=== PATIENT | male | born 1970 | race Caucasian/White ===

== ENCOUNTER → 2016-08-08 | Outpatient (CLI) | payer MEDICARE ==
--- NOTE | 2016-08-08 08:54 | US ---
EXAMINATION TYPE: US carotid duplex BILAT DATE OF EXAM: 08/08/2016 7:14 AM COMPARISON: NONE CLINICAL HISTORY: H81.8X9 DISORDER OF VESTIBULAR FUNCTION , UNSPECIFIED EAR. Pt states dizziness and fainting EXAM MEASUREMENTS: RIGHT: Peak Systolic Velocity (PSV) cm/sec ----- Right CCA: 111.7 ----- Right ICA: 76.5 ----- Right ECA: 109.5 ICA/CCA ratio: 0.7 RIGHT: End Diastole cm/sec ----- Right CCA: 34.7 ----- Right ICA: 20.4 ----- Right ECA: 20.2 LEFT: Peak Systolic Velocity (PSV) cm/sec ----- Left CCA: 97.4 ----- Left ICA: 73.8 ----- Left ECA: 96.6 ICA/CCA ratio: 0.8 LEFT: End Diastole cm/sec ----- Left CCA: 32.5 ----- Left ICA: 31.1 ----- Left ECA: 23.5 VERTEBRALS (direction of flow): Right Vertebral: Antegrade Left Vertebral: Antegrade No significant stenosis seen bilaterally IMPRESSION: I DO NOT SEE EVIDENCE OF A HEMODYNAMICALLY SIGNIFICANT STENOSIS IN EITHER CAROTID SYSTEM. Criteria for Assigning % of Stenosis / Diameter reduction (Estimation based on the indirect measurements of the internal carotid artery velocities (ICA PSV). 1. Normal (no stenosis)=ICA PSV < 125 cm/s: ratio < 2.0: ICA EDV<40 cm/s. 2. Less than 50% stenosis=ICA PSV < 125 cm/s: ratio < 2.0: ICA EDV<40 cm/s. 3. 50 to 69% stenosis=ICA PSV of 125 to 230 cm/s: ration 2.0 ? 4.0: ICA EDV 40-100 cm/s. 4. Greater than 70% stenosis to near occlusion= ICA PSV > 230 cm/s: ratio > 4.0: ICA EDV > 100 cm/s. 5. Near occlusion= ICA PSV velocities may be low or undetectable: variable ratio and ICA EDV. 6. Total occlusion=unable to detect flow.
--- NOTE | 2016-08-09 09:54 | ECHOF ---
Referral Reason:H81.8X9 syncopal vertigo MEASUREMENTS -------- HEIGHT: 182.9 cm WEIGHT: 83.9 kg BP: IVSd: 1.0 cm (0.6 - 1.1) LVIDd: 4.5 cm (3.9 - 5.3) LVPWd: 1.2 cm (0.6 - 1.1) IVSs: 1.5 cm LVIDs: 2.6 cm LVPWs: 1.2 cm Ao Diam: 3.0 cm (2.0 - 3.7) AV Cusp: 2.2 cm (1.5 - 2.6) LA Diam: 3.2 cm (2.7 - 3.8) MV EXCURSION: 17.202 mm (> 18.000) MV EF SLOPE: 118 mm/s (70 - 150) EPSS: 0.3 cm MV E Moustapha: 0.72 m/s MV DecT: 187 ms MV A Moustapha: 0.66 m/s MV E/A Ratio: 1.09 RAP: 5.00 mmHg RVSP: 16.53 mmHg FINDINGS -------- Sinus rhythm. This was a technically good study. There is borderline concentric left ventricular hypertrophy. Overall left ventricular systolic function is normal with, an EF between 55 - 60 %. The right ventricle is normal in size and function. The left atrium is normal in size. The right atrium is normal in size. Aortic valve is trileaflet and is mildly thickened. The mitral valve leaflets are mildly thickened. There is trace mitral regurgitation. Trace tricuspid regurgitation present. The right ventricular systolic pressure, as measured by Doppler, is 16.53mmHg. Pulmonic valve appears structurally normal. The aortic root size is normal. The pericardium is normal. CONCLUSIONS -------- 1. Sinus rhythm. 2. There is trace mitral regurgitation. 3. Trace tricuspid regurgitation present. 4. The right ventricular systolic pressure, as measured by Doppler, is 16.53mmHg. 5. Pulmonic valve appears structurally normal. 6. The aortic root size is normal. 7. The pericardium is normal. 8. This was a technically good study. 9. There is borderline concentric left ventricular hypertrophy. 10. Overall left ventricular systolic function is normal with, an EF between 55 - 60 %. 11. The right ventricle is normal in size and function. 12. The left atrium is normal in size. 13. The right atrium is normal in size. 14. Aortic valve is trileaflet and is mildly thickened. 15. The mitral valve leaflets are mildly thickened. DRIVEMATIC MACHINE OPERATOR: Aura Andrew RDCS
== END | disposition home or self-care (01) ==
LOC: RADUSWWP 06:54
PROVIDERS: ATTEND Family Medicine
DX: H81.8X9 Other disorders of vestibular function, unspecified ear (principal); I08.1 Rheumatic disorders of both mitral and tricuspid valves; I51.7 Cardiomegaly
CPT/HCPCS: 93306; 93880

== ENCOUNTER → 2016-10-04 | Outpatient (CLI) | payer MEDICARE ==
[2016-10-04 14:45] LABS: CH 33.2; CHCM 33.9; HCT 43.9 % (39.0-53.0); HDW 2.42; HGB 14.8 gm/dL (13.0-17.5); MCH 33.1 pg (25.0-35.0); MCHC 33.7 g/dL (31.0-37.0); MCV 98.4 fL (80.0-100.0); Mean Platelet Volume 7.8; RBC 4.47 m/uL (4.30-5.90); RDW 13.1 % (11.5-15.5); WBC 4.9 k/uL (3.8-10.6)
--- NOTE | 2016-10-04 16:46 | CT ---
EXAMINATION TYPE: CT abdomen pelvis w con DATE OF EXAM: 10/04/2016 COMPARISON: 10/10/2014 INDICATION: LLQ pain with nausea for 3 days DLP: 903.3 mGycm, Automated exposure control for dose reduction was used. CONTRAST: 100 mL of Omnipaque 300. Study performed with Oral Contrast TECHNIQUE: Axial images were obtained from above the diaphragm to the pubic rami in the axial plane a t 5 mm thick sections. Reconstructed images are reviewed on the computer in the coronal plane. FINDINGS: Limited CT sections are obtained the lung bases. The lung bases are clear. CT ABDOMEN: Liver: Normal Spleen: Normal Pancreas: Normal Adrenal glands: The adrenal glands are normal. Gallbladder: Normal Kidneys: No masses are evident. No hydronephrosis is present. No cysts are present. Delayed images were obtained through the kidneys, which remain unremarkable. Aorta: Normal Inferior vena cava: Normal. CT PELVIS: Loops of bowel within the abdomen and pelvis are normal. Surgical clips are in the right lower qu adrant. The appendix is not identified. Couple of diverticuli within the sigmoid colon. No changes to suggest acute diverticulitis is evident. Contrast extends to the distal descending colon. Appendix: Not identified Urinary bladder: Normal. Genitourinary structures: Prostate is prominent Osseous structures: No suspicious lytic or sclerotic lesions. IMPRESSIONS: 1. Scattered diverticulosis without acute diverticulitis sigmoid colon.
== END | disposition home or self-care (01) ==
LOC: RADCTMAIN 14:24
PROVIDERS: ATTEND Surgery
DX: K57.90 Diverticulosis of intestine, part unspecified, without perforation or abscess without bleeding (principal)
CPT/HCPCS: 85027; 74177; 36415; Q9967

== ENCOUNTER 2017-06-27 12:27 | Observation (INO) | payer MEDICARE ==
[2017-06-27] MEDS ORDERED: MORPHINE SULFATE 4 MG/ML SYRINGE IV STA (12:52)
[2017-06-27] MEDS ORDERED: LORazepam 2 MG/ML INJ IV STA (12:52)
[2017-06-27] MEDS ORDERED: ONDANSETRON 4 MG/2 ML VIAL IVP STA (12:52)
--- NOTE | 2017-06-27 12:55 | ED ---
General Adult HPI - General Chief complaint: Chest Pain Stated complaint: chest pain Time Seen by Provider: 06/27/17 12:43 Source: patient, EMS, RN notes reviewed, old records reviewed Mode of arrival: EMS Limitations: no limitations - History of Present Illness Initial comments: 46-year-old male presents with substernal chest pain. Patient has history of coronary artery disease status post stenting. He had a cardiac arrest approximately 4 years ago. He had chest pain preceding this event. Patient recently is going through some marital issues and was kicked out of his house yesterday. Chest pain is central substernal chest pain. Does radiate to his left jaw and left arm. The patient had several episodes of vomiting. This pain began approximately one hour prior to arrival. Patient denies abdominal pain. Denies fever or chills. He has been taking his medication as prescribed. - Related Data Home Medications Medication Instructions Recorded Confirmed DULoxetine HCL [Cymbalta] 60 mg PO DAILY 06/27/17 06/27/17 Prochlorperazine [Compazine] 10 mg PO DAILY PRN 06/27/17 06/27/17 rOPINIRole HCL [Requip] 0.25 mg PO TID 06/27/17 06/27/17 Previous Rx's Medication Instructions Recorded Aspirin 81 mg PO DAILY #30 chew 10/01/13 Atorvastatin [Lipitor] 80 mg PO HS #30 tab 10/01/13 Spironolactone [Aldactone] 25 mg PO DAILY #30 tab 10/01/13 Allergies Allergy/AdvReac Type Severity Reaction Status Date / Time hydroxyzine HCl Allergy Unknown Verified 06/27/17 13:16 [From Vistaril] hydroxyzine pamoate Allergy Unknown Verified 06/27/17 13:16 [From Vistaril] meperidine HCl [From Demerol] Allergy Unknown Verified 06/27/17 13:16 Review of Systems ROS Statement: Those systems with pertinent positive or pertinent negative responses have been documented in the HPI. ROS Other: All systems not noted in ROS Statement are negative. Past Medical History Past Medical History: Coronary Artery Disease (CAD), Chest Pain / Angina, Deep Vein Thrombosis (DVT), Hyperlipidemia, Hypertension, Myocardial Infarction (MO) , Sleep Apnea/CPAP/BIPAP Additional Past Medical History / Comment(s): 10-01-13 CArdiac arrest positive mi, was coded for 1 hour placed on vent for 2 days. cad , kidney stones , essential tremor, migraines used to take topamx stopped few yers ago because they went away,sleep apnea but lost weight and did'nt need cpap, LEFT MAXWELL INJURY 1 MONTH AGO RELATED TO SOFT BALL, X-RAY INDICATED CONTUSION, PER CARI Last Myocardial Infarction Date:: 2006 History of Any Multi-Drug Resistant Organisms: None Reported Past Surgical History: Heart Catheterization, Heart Catheterization With Stent Additional Past Surgical History / Comment(s): has 2 cardiac stents, laser sx for kidney stone Past Anesthesia/Blood Transfusion Reactions: No Reported Reaction Date of Last Stent Placement:: NONE Past Psychological History: Anxiety, Depression Smoking Status: Former smoker Past Alcohol Use History: Occasional Past Drug Use History: Marijuana - Past Family History Father Family Medical History: Congestive Heart Failure (CHF), Hyperlipidemia, Hypertension, Myocardial Infarction (MO) Additional Family Medical History / Comment(s): cabg(quad), then post cabd had cath with stents, kidney stones, diverticulits/ sx with temporary colostomy Mother Family Medical History: Cancer Additional Family Medical History / Comment(s): migraines,skin cancer General Exam Limitations: no limitations General appearance: alert, in distress Head exam: Present: atraumatic, normocephalic Eye exam: Present: normal appearance, PERRL, EOMI Neck exam: Present: normal inspection Respiratory exam: Present: normal lung sounds bilaterally. Absent: respiratory distress, wheezes Cardiovascular Exam: Present: regular rate, normal rhythm GI/Abdominal exam: Present: soft. Absent: distended, tenderness Extremities exam: Present: normal inspection, normal capillary refill, other ( Distal pulses are symmetric). Absent: pedal edema Neurological exam: Present: alert, oriented X3. Absent: motor sensory deficit Psychiatric exam: Present: depressed, anxious Skin exam: Present: warm, dry, intact. Absent: cyanosis, diaphoretic Course Vital Signs 06/27/17 06/27/17 06/27/17 12:34 13:53 14:30 Temperature 99.4 F Pulse Rate 113 H 95 99 Respiratory 22 20 15 Rate Blood Pressure 170/92 124/86 138/86 O2 Sat by Pulse 99 100 100 Oximetry EKG Findings - EKG Comments: EKG Findings:: EKG shows normal sinus rhythm, atrial enlargement, ventricular rate 98, NC interval 134, castration 94, QTC 451, no signs of ST segment elevation Medical Decision Making - Medical Decision Making 46-year-old male presenting with chest pain, patient's pain began just prior to arrival. Described as substernal with radiation of the jaw and left arm. Patient has significant cardiac history including cardiac arrest and MO requiring stenting. Initial impression is that his pain is more likely consistent with anxiety. EKG negative for acute ischemic changes. Workup including chest x-ray is negative for any acute intrathoracic process. CBC within normal limits, troponin and d-dimer are negative. Electrolytes negative. Patient is given morphine and Ativan and on reevaluation he is feeling better. Patient's symptoms likely related to anxiety although given the time course and onset just prior to arrival as well as his past medical history he will be placed in observation for serial cardiac enzymes and cardiology consultation. - Lab Data Result diagrams: 06/27/17 12:40 06/27/17 12:40 Lab Results 06/27/17 06/27/17 06/27/17 Range/Units 12:40 12:40 12:40 WBC 7.3 (3.8-10.6) k/uL RBC 4.96 (4.30-5.90) m/uL Hgb 15.9 (13.0-17.5) gm/dL Hct 47.5 (39.0-53.0) % MCV 95.7 (80.0-100.0) fL MCH 32.0 (25.0-35.0) pg MCHC 33.4 (31.0-37.0) g/dL RDW 12.7 (11.5-15.5) % Plt Count 213 (150-450) k/uL Neutrophils % 79 % Lymphocytes % 16 % Monocytes % 4 % Eosinophils % 0 % Basophils % 1 % Neutrophils # 5.7 (1.3-7.7) k/uL Lymphocytes # 1.1 (1.0-4.8) k/uL Monocytes # 0.3 (0-1.0) k/uL Eosinophils # 0.0 (0-0.7) k/uL Basophils # 0.1 (0-0.2) k/uL PT (9.0-12.0) sec INR (<1.2) APTT (22.0-30.0) sec D-Dimer (<0.60) mg/L FEU Sodium 143 (137-145) mmol/L Potassium 4.9 (3.5-5.1) mmol/L Chloride 103 (98-107) mmol/L Carbon Dioxide 27 (22-30) mmol/L Anion Gap 13 mmol/L BUN 18 (9-20) mg/dL Creatinine 1.01 (0.66-1.25) mg/dL Est GFR (MDRD) Af Amer >60 (>60 ml/min/1.73 sqM) Est GFR (MDRD) Non-Af >60 (>60 ml/min/1.73 sqM) Glucose 93 (74-99) mg/dL Calcium 9.6 (8.4-10.2) mg/dL Magnesium 2.1 (1.6-2.3) mg/dL Total Bilirubin 0.9 (0.2-1.3) mg/dL AST 41 (17-59) U/L ALT 43 (21-72) U/L Alkaline Phosphatase 71 (38-126) U/L Total Creatine Kinase 105 (55-170) U/L CK-MB (CK-2) 1.1 (0.0-2.4) ng/mL CK-MB (CK-2) Rel Index 1.0 Troponin I <0.012 (0.000-0.034) ng/mL NT-Pro-B Natriuret Pep pg/mL Total Protein 7.6 (6.3-8.2) g/dL Albumin 4.5 (3.5-5.0) g/dL Lipase 98 (23-300) U/L 06/27/17 06/27/17 Range/Units 12:40 12:40 WBC (3.8-10.6) k/uL RBC (4.30-5.90) m/uL Hgb (13.0-17.5) gm/dL Hct (39.0-53.0) % MCV (80.0-100.0) fL MCH (25.0-35.0) pg MCHC (31.0-37.0) g/dL RDW (11.5-15.5) % Plt Count (150-450) k/uL Neutrophils % % Lymphocytes % % Monocytes % % Eosinophils % % Basophils % % Neutrophils # (1.3-7.7) k/uL Lymphocytes # (1.0-4.8) k/uL Monocytes # (0-1.0) k/uL Eosinophils # (0-0.7) k/uL Basophils # (0-0.2) k/uL PT 9.9 (9.0-12.0) sec INR 1.0 (<1.2) APTT 22.2 (22.0-30.0) sec D-Dimer 0.40 (<0.60) mg/L FEU Sodium (137-145) mmol/L Potassium (3.5-5.1) mmol/L Chloride (98-107) mmol/L Carbon Dioxide (22-30) mmol/L Anion Gap mmol/L BUN (9-20) mg/dL Creatinine (0.66-1.25) mg/dL Est GFR (MDRD) Af Amer (>60 ml/min/1.73 sqM) Est GFR (MDRD) Non-Af (>60 ml/min/1.73 sqM) Glucose (74-99) mg/dL Calcium (8.4-10.2) mg/dL Magnesium (1.6-2.3) mg/dL Total Bilirubin (0.2-1.3) mg/dL AST (17-59) U/L ALT (21-72) U/L Alkaline Phosphatase (38-126) U/L Total Creatine Kinase (55-170) U/L CK-MB (CK-2) (0.0-2.4) ng/mL CK-MB (CK-2) Rel Index Troponin I (0.000-0.034) ng/mL NT-Pro-B Natriuret Pep 85 pg/mL Total Protein (6.3-8.2) g/dL Albumin (3.5-5.0) g/dL Lipase (23-300) U/L Critical Care Time Critical Care Time: Yes Total Critical Care Time: 35 Disposition Clinical Impression: Chest pain, Anxiety Disposition: ADMITTED IP TO THIS [facility] Condition: Stable Referrals: Zaid Malloyr MD [Primary Care Provider] - 1-2 days Decision to Admit Reason: Admit from EC Decision Date: 06/27/17 Decision Time: 14:54
[2017-06-27 13:46] LABS: Basophils # (A) 0.1 k/uL (0-0.2); Basophils % (A) 1 %; Eosinophils % (A) 0 %; HCT 47.5 % (39.0-53.0); HGB 15.9 gm/dL (13.0-17.5); Lymphocytes # (A) 1.1 k/uL (1.0-4.8); Lymphocytes % (A) 16 %; MCHC 33.4 g/dL (31.0-37.0); MCV 95.7 fL (80.0-100.0); Mean Platelet Volume 7.6; Monocytes # (A) 0.3 k/uL (0-1.0); Monocytes % (A) 4 %; Neutrophils # (A) 5.7 k/uL (1.3-7.7); Neutrophils % (A) 79 %; Platelet Count 213 k/uL (150-450); RBC 4.96 m/uL (4.30-5.90); RDW 12.7 % (11.5-15.5); WBC 7.3 k/uL (3.8-10.6)
--- NOTE | 2017-06-27 13:46 | XR ---
EXAMINATION TYPE: XR chest 2V DATE OF EXAM: 06/27/2017 COMPARISON: Chest x-ray November 11, 2014. HISTORY: History of heart attack and stents with chest pain. TECHNIQUE: Frontal and lateral views of the chest are obtained. FINDINGS: There is no focal air space opacity, pleural effusion, or pneumothorax seen. The cardiac silhouette size is within normal limits. Spine is straightened on lateral view. IMPRESSION: No acute cardiopulmonary process. No significant change from prior.
[2017-06-27 13:54] LABS: Anion Gap 13 mmol/L; Blood Urea Nitrogen 18 mg/dL (9-20); Carbon Dioxide 27 mmol/L (22-30); Chloride 103 mmol/L (98-107); Glucose 93 mg/dL (74-99); Potassium 4.9 mmol/L (3.5-5.1); Sodium 143 mmol/L (137-145)
[2017-06-27 13:55] LABS: ALT 43 U/L (21-72); AST 41 U/L (17-59); Albumin 4.5 g/dL (3.5-5.0); Alkaline Phosphatase 71 U/L (38-126); Calcium 9.6 mg/dL (8.4-10.2); Lipase 98 U/L (23-300); Magnesium 2.1 mg/dL (1.6-2.3); Total Bilirubin 0.9 mg/dL (0.2-1.3); Total Protein 7.6 g/dL (6.3-8.2)
[2017-06-27 14:05] LABS: D-Dimer 0.4 mg/L FEU (<0.60)
[2017-06-27 14:11] LABS: Creatine Kinase 105 U/L (55-170)
[2017-06-27 14:25] LABS: Creatine Kinase MB 1.1 ng/mL (0.0-2.4); Troponin I <0.012 ng/mL (0.000-0.034)
[2017-06-27 14:28] LABS: Partial Thromboplastin Time 22.2 sec (22.0-30.0); Prothrombin Time 9.9 sec (9.0-12.0)
[2017-06-27] MEDS ORDERED: ONDANSETRON 4 MG/2 ML VIAL IVP PRN (14:54)
[2017-06-27] MEDS ORDERED: ACETAMINOPHEN TAB 325 MG TAB PO PRN (14:54)
[2017-06-27] MEDS ORDERED: NALOXONE 0.4 MG/ML 1 ML VIAL IV PRN (14:54)
[2017-06-27] MEDS: SODIUM CHLORIDE 0.9% 1,000 ML IV SCH (16:19)
--- NOTE | 2017-06-27 17:42 | P.HPIM ---
History of Present Illness 46-year-old the male with history of carotid disease in the past came in with complaints of chest pain pressure-like sensation the left side of the chest similar to the pain when he when he had myocardial infarction but the less intense started today morning constant pain it was 8 x 10 in severity now 6 x 10 in severity patient was also complaining of syncopal episode prior to this patient is a retching. Patient has multitude of symptoms. Patient mostly paced to be severely depressed had some marital issues, has to leave his house. Patient denied any suicidal ideations patient chest pain is nonexertional nonpleuritic not associated with food. Patient is already on duloxetine. Patient denied any cough runny nose patient has resting tremor which she says has been present since his childhood although patient has known history of alcoholism drinks more than 4 beers a day Review of Systems REVIEW OF SYSTEMS: CONSTITUTIONAL: No fever, no malaise, no fatigue. HEENT: No recent visual problems or hearing problems. Denied any sore throat. CARDIOVASCULAR: No orthopnea, PND, no palpitations, no syncope. PULMONARY: No shortness of breath, no cough, no hemoptysis. GASTROINTESTINAL: No diarrhea, no nausea, no vomiting, no abdominal pain. Normoactive bowel sounds. NEUROLOGICAL: No headaches, no weakness, no numbness. HEMATOLOGICAL: Denies any bleeding or petechiae. GENITOURINARY: Denies any burning micturition, frequency, or urgency. MUSCULOSKELETAL/RHEUMATOLOGICAL: Denies any joint pain, swelling, or any muscle pain. ENDOCRINE: Denies any polyuria or polydipsia. The rest of the 14-point review of systems is negative. Past Medical History Past Medical History: Coronary Artery Disease (CAD), Chest Pain / Angina, Deep Vein Thrombosis (DVT), GERD/Reflux, Hyperlipidemia, Hypertension, Myocardial Infarction (DC), Rheumatoid Arthritis (RA), Sleep Apnea/CPAP/BIPAP Additional Past Medical History / Comment(s): 10-01-13 Cardiac arrest positive mi, was coded / placed on vent for 2 days.(per discharge summary had pul edema from chf, cardiomyopathy) cad , kidney stones , essential tremor, migraines used to take topamx stopped few yers ago because they went away,sleep apnea but lost weight and did'nt need cpap,past LEFT MAXWELL CONTUSIONfrom softball injury. "has blockage in one of his carotid arteries no sure which side" Last Myocardial Infarction Date:: 2013 History of Any Multi-Drug Resistant Organisms: None Reported Past Surgical History: Heart Catheterization, Heart Catheterization With Stent Additional Past Surgical History / Comment(s): has 2 cardiac stents, laser sx for kidney stone Past Anesthesia/Blood Transfusion Reactions: No Reported Reaction Date of Last Stent Placement:: NONE Smoking Status: Former smoker - Past Family History Father Family Medical History: Congestive Heart Failure (CHF), Hyperlipidemia, Hypertension, Myocardial Infarction (DC) Additional Family Medical History / Comment(s): cabg(quad), then post cabd had cath with stents, kidney stones, diverticulits/ sx with temporary colostomy Mother Family Medical History: Cancer Additional Family Medical History / Comment(s): migraines,skin cancer Medications and Allergies Home Medications Medication Instructions Recorded Confirmed Type Aspirin 81 mg PO DAILY #30 chew 10/01/13 06/27/17 Rx Atorvastatin [Lipitor] 80 mg PO HS #30 tab 10/01/13 06/27/17 Rx Spironolactone [Aldactone] 25 mg PO DAILY #30 tab 10/01/13 06/27/17 Rx DULoxetine HCL [Cymbalta] 60 mg PO DAILY 06/27/17 06/27/17 History Prochlorperazine [Compazine] 10 mg PO DAILY PRN 06/27/17 06/27/17 History rOPINIRole HCL [Requip] 0.25 mg PO TID 06/27/17 06/27/17 History Allergies Allergy/AdvReac Type Severity Reaction Status Date / Time hydroxyzine HCl Allergy Unknown Verified 06/27/17 13:16 [From Vistaril] hydroxyzine pamoate Allergy Unknown Verified 06/27/17 13:16 [From Vistaril] meperidine HCl [From Demerol] Allergy Unknown Verified 06/27/17 13:16 Physical Exam Vitals: Vital Signs Temp Pulse Pulse Resp BP BP Pulse Ox 06/27/17 15:45 98.0 F 93 18 152/85 98 06/27/17 15:17 98.9 F 93 18 127/73 99 06/27/17 14:30 99 15 138/86 100 06/27/17 13:53 95 20 124/86 100 06/27/17 12:34 99.4 F 113 H 22 170/92 99 Intake and Output 06/27/17 06/27/17 06/27/17 06:59 14:59 22:59 Other: Voiding Method Toilet Weight 83.915 kg 85 kg Patient Weight 06/28/17 06:59 Weight 85 kg PHYSICAL EXAMINATION: GENERAL: The patient is alert and oriented x3, not in any acute distress. Well developed, well nourished. Patient does have resting tremor appears to be severely depressed HEENT: Pupils are round and equally reacting to light. EOMI. No scleral icterus. No conjunctival pallor. Normocephalic, atraumatic. No pharyngeal erythema. No thyromegaly. CARDIOVASCULAR: S1 and S2 present. No murmurs, rubs, or gallops. PULMONARY: Chest is clear to auscultation, no wheezing or crackles. ABDOMEN: Soft, nontender, nondistended, normoactive bowel sounds. No palpable organomegaly. MUSCULOSKELETAL: No joint swelling or deformity. EXTREMITIES: No cyanosis, clubbing, or pedal edema. NEUROLOGICAL: Gross neurological examination did not reveal any focal deficits. SKIN: No rashes. Results CBC & Chem 7: 06/27/17 12:40 06/27/17 12:40 Assessment and Plan Plan: -Chest pain: We'll rule out acute coronary syndromes appear to be noncardiac most related to anxiety and depression. Cardiology will evaluate the patient. -Syncopal episode: Telemetry monitoring and echocardiogram once again probably still related to his severe depression. -History of coronary artery disease -alcoholism well and counseling regarding excess alcohol use was provided patient will be on Ativan [place] protocol thiamine multivitamin supplementation -DVT in the past -Gastroesophageal reflux disease -Hypertension For above-mentioned chronic medical problems patient will be started on appropriate home medications.
[2017-06-27 19:36] LABS: Creatine Kinase 74 U/L (55-170)
[2017-06-27 19:50] LABS: Creatine Kinase MB 0.8 ng/mL (0.0-2.4); Troponin I <0.012 ng/mL (0.000-0.034)
[2017-06-27] MEDS: LORazepam 2 MG/ML INJ IV PRN (19:52)
[2017-06-27] MEDS: HYDROmorphone 0.5 MG/0.5 ML SYRINGE IVP PRN (19:56)
[2017-06-27] MEDS: ATORVASTATIN 80 MG TAB PO SCH (19:57)
[2017-06-27] MEDS: FAMOTIDINE 20 MG TAB PO SCH (19:57)
[2017-06-28 01:08] LABS: Creatine Kinase 80 U/L (55-170)
[2017-06-28 01:21] LABS: Creatine Kinase MB 0.8 ng/mL (0.0-2.4); Troponin I <0.012 ng/mL (0.000-0.034)
[2017-06-28] MEDS: HYDROmorphone 0.5 MG/0.5 ML SYRINGE IVP PRN (07:53)
[2017-06-28 10:11] VITALS: BMI 26.1
[2017-06-28] MEDS: LORazepam 2 MG/ML INJ IV PRN ×2 (10:43→21:17)
--- NOTE | 2017-06-28 11:11 | CT ---
EXAMINATION TYPE: CT brain wo con DATE OF EXAM: 06/28/2017 COMPARISON: NONE INDICATION: Patient complains of head pressure. DLP: 1118 mGycm, Automated exposure control for dose reduction was used. CONTRAST: None CT of the brain is performed utilizing 3 mm thick sections through the posterior fossa and 3 mm thick sections through the remaining calvarium. Study is performed within 24 hours of arrival to the hosp [facility]. No abnormal hyperdensity is present to suggest an acute intracranial hemorrhage. No mass lesion is evident. No acute infarcts are evident. Ventricles and sulci are appropriate for the patient age. Paranasal sinuses and mastoid air cells within the [id number] are clear. IMPRESSIONS: 1. Normal CT Brain
--- NOTE | 2017-06-28 12:18 | CT ---
EXAMINATION TYPE: CT brain wo con DATE OF EXAM: 06/28/2017 COMPARISON: 06/28/2017 earlier in the day INDICATION: MARX, Lt sided weak DLP: 1277 mGycm, Automated exposure control for dose reduction was used. CONTRAST: None CT of the brain is performed utilizing 3 mm thick sections through the posterior fossa and 3 mm thick sections through the remaining calvarium. Study is performed within 24 hours of arrival to the hosp ital. No abnormal hyperdensity is present to suggest an acute intracranial hemorrhage. No mass lesion is evident. No acute infarcts are evident. Ventricles and sulci are appropriate for the patient age. Paranasal sinuses and mastoid air cells within the [id number] are clear. IMPRESSIONS: 1. Normal CT Brain 2. Exam is stable from previous exam. MRI may be more sensitive for acute stroke.
[2017-06-28] MEDS ORDERED: FLUMAZENIL 0.1 MG/ML 5 ML VIAL IVP ONE (12:27)
--- NOTE | 2017-06-28 12:55 | CT ---
EXAMINATION TYPE: CODE STROKE: CTA head neck DATE OF EXAM: 06/28/2017 HISTORY: MAXR, Lt sided weakness COMPARISON: NONE CT DLP: 462 mGycm. Automated Exposure Control for Dose Reduction was Utilized. TECHNIQUE: CTA scan of the neck is performed with IV Contrast, patient injected with 65 mL of Omnipa que 350, axial images are obtained, coronal and sagittal reformatted images are reviewed. Three-D rec onstructed images are created on an independent workstation and reviewed. FINDINGS: Carotid/Vascular Structures: Anterior and posterior circulations within the brain are patent, there i s no filling defect to suggest dissection or embolus. Common carotid, internal and external carotid a rteries are patent. No significant carotid stenosis is evident. The innominate artery, left and right subclavian arteries are patent. Vertebral arteries are codominant and patent. Other: Polyp seen tonsils are somewhat prominent, recommend direct visualization. Salivary gland show symmetric appearance. Dural sinuses are patent. Degenerative disc changes are present in the visuali zed spine. Lung apices within normal limits. No evident adenopathy. IMPRESSION: Patent neck and cerebral vasculature. Additional findings above.
--- NOTE | 2017-06-28 12:59 | CONS ---
CONSULTATION Mr. Burden is a 46-year-old gentleman who is seen for cardiac evaluation. The patient currently is lethargic minimally answering any questions. Patient just has received 1 mg of Ativan. A stroke team was called. The patient's history was obtained from the sister as well as from the chart. He came to the emergency room yesterday with a complaint of substernal pain. The patient gives a history that he had chest discomfort with some radiation to the left arm. He had a history of fall or syncope yesterday. According to sister, he has been having some syncopal spells and he had several episodes of vomiting yesterday. This morning, patient was complaining of some blurred vision and headache. He received Ativan and subsequently he went for the CT scan of the brain which was normal. After that the patient is lethargic. The patient is not having any significant chest pain. He does have a prior history of myocardial infarction with stent to the proximal LAD. He has not been followed by Dr. Banuelos regularly. I am not sure whether patient is following any shot man at [facility]. The patient is under a lot of stress recently and because of the marital problems patient also drinks about 4 to 5 beers per day. HOME MEDICATIONS: Home medications include Cymbalta, Compazine, Requip, aspirin, Lipitor and Aldactone 25 mg daily. PAST MEDICAL HISTORY: Past medical history includes a prior myocardial infarction, history of DVT, hypertension, history of sleep apnea, CPAP and BiPAP machine, history of migraine headache and he has history of essential tremors, prior history of a stent to the LAD. SMOKING HISTORY: Patient is a former smoker. SOCIAL HISTORY: Patient has a history of depression and anxiety and has been having marital problems recently. PHYSICAL EXAMINATION: Physical examination at present reveals a 46-year-old gentleman who does respond to the questions minimally. In the emergency room, patient had a temperature of 99.4, blood pressure was 170/92 mmHg. The patient is afebrile this morning. Blood pressure is 130/81 mmHg. Head, ENT examination is negative. Neck is supple. There is no increase in jugular venous pressure. Both the carotid pulses are felt. There is no bruit. Chest is symmetrical. HEART: The PMI is not felt. First and second heart sounds are normal. There is no evidence of any murmur. Lungs are clinically clear to auscultation and percussion. Abdomen is soft. EXTREMITIES: There is no evidence of any leg edema. EKG shows normal sinus rhythm without any acute ischemic changes. Cardiac enzymes are negative. FINAL IMPRESSION: 1. This patient is admitted with chest pain, rule out unstable angina syndrome. EKGs and cardiac enzymes are normal. The patient does have a prior history of myocardial infarction and stent to the proximal LAD. 2. Patient is having significant problem of anxiety, depression and headache. The patient is being worked up neurologically at present. The patient is stable. Cardiac harrison at present, patient is not having any symptoms of acute coronary syndrome. Echo and Doppler study will be done. After the patient's neurological status is stabilized, he can be evaluated further with a stress test. FERMIN / LEXYN: [id number] /
--- NOTE | 2017-06-28 13:08 | P.PN ---
Subjective 46-year-old admitted for chest pain patient evidently had a fall yesterday and a CAT scan of the head was done which was negative patient later had an episode of weakness on the left side of the body I was not present at that time "stroke team evaluated the patient and interventional neurologist evaluated on the telemetry recommended a CT angiography head and neck by the time I saw the patient he has generalized weakness but no focal weakness all the weakness completely resolved there is no focal sensory deficits either apparently there was no facial droop. Patient is severely depressed. He still complaining of chest pain. Objective - Vital Signs Vital signs: Vital Signs Temp 97.4 F L 06/28/17 11:43 Pulse 93 06/28/17 11:48 Resp 18 06/28/17 11:43 BP 140/86 06/28/17 12:25 Pulse Ox 98 06/28/17 11:43 Intake & Output 06/27/17 06/28/17 06/28/17 18:59 06:59 18:59 Weight 85 kg 85 kg Other: Voiding Method Toilet Toilet Toilet # Voids 1 - Exam PHYSICAL EXAMINATION: GENERAL: The patient is alert and oriented x3, not in any acute distress. Well developed, well nourished. HEENT: Pupils are round and equally reacting to light. EOMI. No scleral icterus. No conjunctival pallor. Normocephalic, atraumatic. No pharyngeal erythema. No thyromegaly. CARDIOVASCULAR: S1 and S2 present. No murmurs, rubs, or gallops. PULMONARY: Chest is clear to auscultation, no wheezing or crackles. ABDOMEN: Soft, nontender, nondistended, normoactive bowel sounds. No palpable organomegaly. MUSCULOSKELETAL: No joint swelling or deformity. EXTREMITIES: No cyanosis, clubbing, or pedal edema. NEUROLOGICAL: Gross neurological examination did not reveal any focal deficits. Patient has generalized weakness SKIN: No rashes. - Labs CBC & Chem 7: 06/27/17 12:40 06/27/17 12:40 Assessment and Plan Plan: -Chest pain: We'll rule out acute coronary syndromes appear to be noncardiac most related to anxiety and depression. Cardiology will evaluate the patient. -Syncopal episode: Telemetry monitoring and echocardiogram once again probably still related to his severe depression. -An episode of weakness in the left side: Patient will be evaluated for TIA neurology was consulted carotid Doppler will be obtained by my suspicion is low for actual TIA the other differentials include severe depression, attention seeking behavior or psychosomatic. -History of coronary artery disease -alcoholism well and counseling regarding excess alcohol use was provided patient will be on Ativan CIWA protocol thiamine multivitamin supplementation -DVT in the past -Gastroesophageal reflux disease -Hypertension For above-mentioned chronic medical problems patient will be started on appropriate home medications.
--- NOTE | 2017-06-28 15:34 | P.CN ---
Psychiatric Consult - . Consult date: 06/28/17 Consult:: 06/28/17 15:15 Identification: Patient is a 46-year-old male who presented to the emergency room with complaints of chest pain after he fell at home. Patient wasn't of unit and then was transferred to the inpatient unit secondary to developing a temporary weakness in his extremities. Reason for Consult: Depression History of Present Illness: Patient's chart was reviewed, I spoke with the attending physician prior to seeing the patient and the patient was interviewed in his room alone and his parents were asked to leave to complete the interview. Patient states that he had chest pain and came to the emergency room , he states that they've ruled out that he had a heart attack. Patient states that he has been taking Cymbalta 60 mg in the morning for the last several years prescribed by his primary care physician for depression. He states that he's tried Paxil, Zoloft, Wellbutrin and quit those because of side effects or not working. He describes his depression as major mood swings where he is happy 1 minute and angry quite quickly. He states that this is increased recently because he's been under increasing stress. States that his depression currently is one of anger and feeling hopeless and with anxiety attacks. States he is not sleeping well. Patient reports he wasn't eating well prior to coming to the hospital. Patient denies any current suicidal ideation and states that he has never had any suicidal thoughts nor any suicide attempts in the past. Patient states that the stress he has been under is due to the separation from his for the last 2 days. Patient states that they because of infidelity on his part, she asked for the separation because he told her about the infidelity and he states he is not interested in divorce and states that she is not either and that they are discussing possible marital counseling. Patient states that he also uses alcohol and that this was also in another point of contention between he and his . Patient states the last year he's been drinking 5-6 beers a day and hasn't had any since the day prior to admission. He stopped because his asked him to stop. 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 The patient states that he is disabled secondary to his heart disease and the limitations he has about being able to do sustained physical labor. He was unable to tell me what he spends his days doing but stated that he was born at home and began using marijuana daily due to boredom. Patient does not endorse any psychotic symptoms nor does he endorse any manic symptoms and his anxiety symptoms seem to be related to his depression and becoming angry and irritable. Patient states he's been taking the Cymbalta and that it was beneficial and worked better than other medications. Past Psychiatric History: Patient has no inpatient psychiatric history and has never been seen for counseling or psychiatric evaluation. He is currently on Cymbalta 60 mg in the morning and has tried Paxil, Zoloft and Wellbutrin. Past Medical/Surgical History: Patient has coronary artery disease and is status post 2 stent placements, myocardial infarction, DVT, hypertension, sleep apnea for which the patient states he lost weight and no longer uses a CPAP or BiPAP machine but has never been reassessed after the weight loss to see if his sleep apnea persists. He reports he also has migraine headaches and essential tremor. He denies any surgeries. Family History: Patient states that his mother is being treated for depression and his sister is being dysphoric treated for depression. He denies any alcohol or substance abuse history in the family and denies any completed suicides. Social History: Patient was born and raised in [place] and both of his parents are alive. He has one sibling a sister. He completed high school as no service and began working after high school. His most recent job was as a maintenance controller which he did for 6 years but he has not worked since September 2013. Patient is currently on disability and he states this is secondary to his heart disease in his inability to do sustained physical work. Patient is and has a 12-year-old daughter and was recently from his 2 days ago due to infidelity on his part as well as due to his alcohol use. Patient is currently living with his sister and his and daughter remain in the family home. Patient denies any abuse history Substance Use History: Patient states he began drinking at the age of 20 and drank heavily in the past and for the last year is been drinking 5-6 beers a day. Patient denies any symptoms of withdrawal and has never had any withdrawal seizures. He is never received any inpatient or outpatient alcohol rehab treatment. Patient states he began using marijuana at the age of 18 stopped for years and restarted recently and uses it occasionally secondary to boredom. He denies any other drug history. Patient stopped using tobacco products. Legal History: Patient denies any legal history. Mental status: Appearance/Attitude: Patient is lying in a hospital bed and kept his eyes closed during the interview, he was cooperative but appeared disinterested in the interview Behavior: Patient did not display any psychomotor agitation or retardation. Speech/Language: Patient's speech was spontaneous, needed encouragement to elaborate, he spoke in a soft slow voice and was coherent Thought Process: Patient was goal-directed, there is no evidence of loose associations or flight of ideas Thought Content: Patient denied any auditory or visual hallucinations and no delusions or paranoid ideation were elicited. Patient stated that he had recently been under a lot of stress secondary to he and his 2 days prior to his admission. He states that the separation was secondary to his infidelity. He states that his was also asking him to stop drinking. Patient states that he has been having mood swings which she describes as being happy and then quick to anger. He states he has been feeling depressed and angry as well as hopeless. He describes anxiety attacks that he has very becomes increasingly anxious and irritable. States that he has not been sleeping well at home and his appetite is been decreased at home. Suicidal/Homicidal Ideation: Patient denies any current suicidal or homicidal ideation. Sensorium/Cognition: Patient is alert and oriented to person, place, time and his recent and remote memory were grossly intact. Mood/Affect: Patient states he is feeling depressed and his affect is blunted. Insight/Judgment: Patient's insight and judgment are fair. Assessment: patient presented to the emergency room with complaints of chest pain and having fallen at home, he states he's been under increasing stress recently and this appears to be secondary to his separation from his 2 days ago. He states that the separation was secondary to his infidelity and telling his as well as his requesting that he stopped drinking. Patient has been treated for a number of years for depression and most recently has been on Cymbalta 60 mg for the last several years she states is been the most effective medication. Patient has been using alcohol 5-6 beers a day for the last year. Patient also has been using marijuana occasionally due to boredom. Patient has been on disability since 2013 secondary to his heart disease. Patient has never received any counseling for his depression nor has he gone to any outpatient or inpatient rehab for his alcohol use. Patient appeared disinterested during the interview keeping his eyes closed throughout the whole interview. Patient stated that he could stop drinking and that that would not be a problem for him. Patient reports that both he and his are interested in marriage counseling. Diagnosis: Other specified depressive disorder, alcohol use disorder, mild Plan: Patient reports depressive symptoms and that his Cymbalta 60 mg is not working, and I discussed with the patient that medication would be ineffective if he was using alcohol concurrently with it. I also discussed with the patient that his use of alcohol disruptive sleep pattern and also increase his anxiety and depressive symptoms. Patient does not exhibit any psychotic symptoms or manic symptoms and denies any current suicidal or homicidal ideation and does not require inpatient psychiatric treatment. Before changing his Cymbalta 60 mg as he states that it was effective in the past I suggested that he stopped drinking and reassess his response to Cymbalta off of alcohol. I also suggested to the patient that he should be seen for outpatient counseling and should the Cymbalta not be effective obtain psychiatric evaluation for medication adjustment. Patient also is not using his CPAP machine and states this is because of weight loss and that he thinks he no longer has sleep apnea. Patient should be reassessed for sleep apnea after his weight loss as I discussed with him that this could certainly contribute to his sleep difficulties, lack of energy as well as his headaches and could also affect his mood. I encouraged the patient to remain sober from both alcohol and marijuana. I also encouraged the patient to seek marital counseling with his . Patient was given a referral list for outpatient counseling as well as for in an outpatient rehab for alcohol use yesterday by the EPS nurse. Patient states that he does have those referrals. Patient was encouraged to contact these referrals and set up outpatient counseling for himself as well as to consider rehab services for his alcohol use. Patient stated that he thinks he can stop drinking without assistance. I will sign off the case if there are any further concerns please do not hesitate to contact me. 06/28/17 15:28 06/28/17 15:33
[2017-06-28] MEDS: SODIUM CHLORIDE 0.9% 1,000 ML IV SCH (18:39)
[2017-06-28] MEDS: HEPARIN SODIUM,PORCINE 5,000 UNIT/ML 1 ML VIAL SQ SCH (18:39)
[2017-06-28] MEDS: FAMOTIDINE 20 MG TAB PO SCH ×2 (19:28→20:21)
[2017-06-28] MEDS: HYDROcodone/APAP 5-325MG 1 EACH TAB PO PRN (19:28)
[2017-06-28] MEDS: ASPIRIN 81 MG PO SCH (19:29)
[2017-06-28] MEDS: SPIRONOLACTONE 25 MG TAB PO SCH (19:29)
[2017-06-28] MEDS: DULoxetine HCL 60 MG CAPSULE.DR PO SCH (19:29)
[2017-06-28] MEDS: ATORVASTATIN 80 MG TAB PO SCH (20:21)
--- NOTE | 2017-06-28 21:08 | CONS ---
CONSULTATION DATE OF CONSULTATION: 06/28/2017. CHIEF COMPLAINT: Weakness and numbness. HISTORY OF PRESENT ILLNESS: The patient is a 46-year-old male, who was being evaluated by the neurology service per the request of Dr. Durant for weakness and numbness. The patient initially presented to [facility] Emergency Room with complaints of chest pain. He was also complaining of a headache. A CT scan of the brain was done in the emergency room which was normal. The patient was admitted for further workup and management. Soon after his arrival to the medical floor, he developed a sudden onset of generalized weakness and numbness. A code stroke was called and a repeat CT scan of the brain was done, which again was normal. A CT angiogram of the brain and neck were also done, both of which showed no significant abnormalities. At the time of my evaluation, the patient is lying in his bed. He does admit that his weakness was generalized and nonlateralizing. He does report that his numbness was mainly on the left side. He also has severe depression and psychiatry has been consulted. I did review his laboratory workup which showed a normal CBC, INR, cardiac enzymes, and comprehensive metabolic profile. PAST MEDICAL HISTORY: Coronary artery disease, angina, history of deep venous thrombosis, gastroesophageal reflux disease, dyslipidemia, hypertension, history of myocardial infarction, rheumatoid arthritis, obstructive sleep apnea, history of previous cardiac arrest, depression, restless leg syndrome, essential tremor, history of nephrolithiasis, history of coronary artery stent placement. SOCIAL HISTORY: The patient is a former smoker. He denies any drug use. He admits to alcohol use. He does admit to marijuana use. FAMILY HISTORY: Positive for heart disease, hypertension, dyslipidemia, and cancer. HOME MEDICATIONS: Reviewed in the chart. ALLERGIES: VISTARIL, DEMEROL. REVIEW OF SYSTEMS: CONSTITUTIONAL: Negative. EYES: Negative. ENT: Negative. CARDIOVASCULAR: As mentioned above. RESPIRATORY: Negative. NEUROLOGICAL: As mentioned above. GASTROINTESTINAL: Positive for occasional heartburn. GENITOURINARY: Negative. PSYCHIATRIC: As mentioned above. MUSCULOSKELETAL: Positive for occasional joint pain. ENDOCRINE: Negative. DERMATOLOGICAL: Negative. PHYSICAL EXAM: Vital signs show a temperature of 97.4, pulse 93, respirations 18, blood pressure 130/81. GENERAL APPEARANCE: The patient is a well-developed male, who appears to be in no acute distress. HEENT: Normocephalic, atraumatic. No facial asymmetry is seen. NECK: Supple with no masses felt. CARDIOVASCULAR: Regular rate and rhythm. ABDOMEN: Nontender nondistended. EXTREMITIES: No edema or clubbing. NEUROLOGICAL EXAM: The patient is alert aware and oriented x3. Speech and language are normal. Strength examination showed significant give-way weakness in the left lower extremity more than the right lower extremity. No pronator drift is seen. 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 Sensory exam showed slightly diminished light touch sensation in the left upper extremity compared to the right. No sensory deficit is seen in the lower extremities. A postural tremor is present in the left upper extremity. Cranial nerve testing showed diminished light touch sensation on the left face compared to the right. No seizure-like activity is seen. IMPRESSION: 1. Atypical generalized weakness. 2. Left-sided sensory deficit. 3. Severe depression. RECOMMENDATIONS: The patient's neurological examination is not consistent as he has significant give-way weakness in his lower extremities. Although conversion disorder is within the differential diagnosis, I will order an MRI of the brain to rule out any ischemic event. I reviewed his CT scan of the brain along with his CT angiograms, all of which were normal. A psychiatry consultation is pending. He is still having some sensory deficit involving his left face and left upper extremity. The patient is currently on aspirin therapy. Continue neuro checks. I will continue to follow with you. Further recommendations to follow. Thank you for allowing me to participate in the care of your patient. If you have any questions, please feel free to contact me. FERMIN / LEXYN: [id number] /
[2017-06-29 07:09] LABS: Cholesterol 122 mg/dL (<200); HDL Cholesterol 58 mg/dL (40-60); LDL Cholesterol,Calculated 36 mg/dL (0-99); Triglycerides 140 mg/dL (<150)
[2017-06-29] MEDS: HYDROcodone/APAP 5-325MG 1 EACH TAB PO PRN ×2 (07:33→13:17)
--- NOTE | 2017-06-29 08:17 | MR ---
EXAMINATION TYPE: MR brain wo con DATE OF EXAM: 06/29/2017 COMPARISON: Prior MRI brain from yesterday. HISTORY: Left sided numbness and weakness on admission yesterday. Code stroke. TECHNIQUE: Multiplanar, multisequence imaging of the brain and brainstem is performed without IV cont rast. FINDINGS: Diffusion weighted images demonstrate no evidence of a recent infarct or other diffusion abnormality. There is no worrisome extra-axial fluid collection. The ventricular system and cisternal spaces are normal in size and appearance. The brain volume is age appropriate. There are scattered foci of T2 h yperintensity seen throughout the white matter bilaterally. Approximately 20-30 scattered lesions are seen. Multiple lesions measure between 3 to 6 mm in size. Midline structures demonstrate normal morphology. The craniocervical junction appears within normal limits. Normal vascular flow voids are present. The visualized sinuses are clear and the globes are i ntact. IMPRESSION: 1. No MRI evidence for a recent infarct. 2. Mild to moderate nonspecific white matter changes otherwise fairly unremarkable study.
[2017-06-29] MEDS: LORazepam 2 MG/ML INJ IV PRN (08:55)
[2017-06-29] MEDS: DULoxetine HCL 60 MG CAPSULE.DR PO SCH (09:11)
[2017-06-29] MEDS: FAMOTIDINE 20 MG TAB PO SCH (09:11)
[2017-06-29] MEDS: HEPARIN SODIUM,PORCINE 5,000 UNIT/ML 1 ML VIAL SQ SCH ×2 (09:11)
[2017-06-29] MEDS: ASPIRIN 81 MG PO SCH (09:11)
[2017-06-29] MEDS: SPIRONOLACTONE 25 MG TAB PO SCH (09:12)
[2017-06-29 11:17] VITALS: BP 138/85; PULSE 94; RESP 17; TEMP 96
--- NOTE | 2017-06-29 12:47 | P.PN ---
Subjective Progress Note Date: 06/29/17 This is a 46-year-old gentleman who follows with Dr. Adhikari in the office. Has a history of prior cardiac arrest with stent placement to the proximal LAD, DVT , hypertension, depression, sleep apnea and migraine headaches. Initially presented to the emergency department with complaints of substernal pain. He appeared to be also has a history of a fall and syncope on the day of admission. According to his sister he has been having some syncopal spells and episodes of vomiting following these spells. EKG did not show evidence of ischemia he's had no evidence of arrhythmia and troponins of been negative 3. He developed some neurological symptoms yesterday including generalized weakness and some numbness on the left side and code stroke was called. He subsequently underwent MRI of the brain that showed no evidence for recent infarct with mild to moderate nonspecific white matter changes, otherwise fairly unremarkable study. Upon examination this morning, patient is resting comfortably in bed with sister at bedside. His weakness and numbness seems to have improved. He's had no further complaints of syncope or chest discomfort. Objective - Vital Signs Vital signs: Vital Signs Temp 96.0 F L 06/29/17 11:13 Pulse 94 06/29/17 11:13 Resp 17 06/29/17 11:13 BP 138/85 06/29/17 11:13 Pulse Ox 93 L 06/29/17 11:13 Intake & Output 06/28/17 06/29/17 06/29/17 18:59 06:59 18:59 Intake Total 472 Balance 472 Weight 85 kg 83.9 kg Intake: Oral 472 Other: Voiding Method Toilet Toilet Toilet # Voids 1 1 - Exam PHYSICAL EXAMINATION: HEENT: Head is atraumatic, normocephalic. Pupils equal, round. Neck is supple. There is no elevated jugular venous pressure. HEART EXAMINATION: Heart sounds regular, S1 and S2 normal. No murmur or gallop heard. CHEST EXAMINATION: Lungs are clear to auscultation and precussion. No chest wall tenderness is noted on palpation or with deep breathing. ABDOMEN: Soft, nontender. Bowel sounds are heard. No organomegaly noted. EXTREMITIES: 2+ peripheral pulses with no evidence of peripheral edema and no calf tenderness noted. NEUROLOGIC patient is awake, alert and oriented x3. . - Labs CBC & Chem 7: 06/27/17 12:40 06/27/17 12:40 Assessment and Plan Assessment: #1 symptoms of chest pain with no EKG evidence of ischemia and normal cardiac enzymes #2 symptoms of recurrent syncope followed by nausea and vomiting #3 anxiety and depression #4 alcohol abuse #5 history of prior myocardial infarction with stent placement in the proximal LAD Plan: From cardiology's perspective, patient is stable for discharge home. We are recommending a follow-up with Dr. Baunelos and an event monitor as an outpatient. HEALTHCARE ADMINISTRATIVE ASSISTANT note has been reviewed, I agree with a documented findings and plan of care. Patient was seen and examined.
--- NOTE | 2017-06-29 12:57 | P.DS ---
Providers Date of admission: 06/27/17 14:54 Attending physician: René Martin Consults: 06/27/17 14:55 Consult Physician Urgent Consulting Provider: Judith Antoine Consult Reason/Comments: CP Do you want consulting provider notified?: Yes 06/27/17 17:34 Consult Physician Routine Consulting Provider: Rula Ellsworth Consult Reason/Comments: depression Do you want consulting provider notified?: Yes 06/28/17 12:10 Consult Physician Urgent Consulting Provider: Cassius Fajardo Consult Reason/Comments: stroke symptoms Do you want consulting provider notified?: Yes Primary care physician: Zaid Waddell [place] [facility] Course: 46-year-old admitted for chest pain patient evidently had a fall yesterday and a CAT scan of the head was done which was negative patient later had an episode of weakness on the left side of the body I was not present at that time "stroke team evaluated the patient and interventional neurologist evaluated on the telemetry recommended a CT angiography head and neck by the time I saw the patient he has generalized weakness but no focal weakness all the weakness completely resolved there is no focal sensory deficits either apparently there was no facial droop. Patient is severely depressed. He still complaining of chest pain. 06/29/2017 All the workup for stroke is negative including MRI of brain. Patient still complains of weakness which appears to be mostly psychosomatic in nature same thing was explained to the patient patient is willing to quit alcohol patient is having minimal withdrawls because of which will he will be prescribed Ativan on When necessary basis, patient denied any chest pain patient does have mild alcoholic gastritis for which patient will be given 14 days of Prilosec social work evaluated the patient and gave him enough information needed for alcohol cessation psychiatric is not recommending a dose increase for Cymbalta. PHYSICAL EXAMINATION: GENERAL: The patient is alert and oriented x3, not in any acute distress. Well developed, well nourished. HEENT: Pupils are round and equally reacting to light. EOMI. No scleral icterus. No conjunctival pallor. Normocephalic, atraumatic. No pharyngeal erythema. No thyromegaly. CARDIOVASCULAR: S1 and S2 present. No murmurs, rubs, or gallops. PULMONARY: Chest is clear to auscultation, no wheezing or crackles. ABDOMEN: Soft, nontender, nondistended, normoactive bowel sounds. No palpable organomegaly. MUSCULOSKELETAL: No joint swelling or deformity. EXTREMITIES: No cyanosis, clubbing, or pedal edema. NEUROLOGICAL: Gross neurological examination did not reveal any focal deficits. SKIN: No rashes. Assessment and Plan Plan: -Chest pain: We'll rule out acute coronary syndromes appear to be noncardiac most related to anxiety and depression. Cardiology evaluated the patient. -Syncopal episode: Telemetry monitoring and echocardiogram once again probably still related to his severe depression. -An episode of weakness in the left side: Workup for stroke is negative and patient's symptoms are psychosomatic -History of coronary artery disease -alcoholism well and counseling regarding excess alcohol use which will be discharged on thiamine multivitamin supplementation along with Ativan as needed basis. -DVT in the past -Gastroesophageal reflux disease -Hypertension Patient Condition at Discharge: Stable Plan - Discharge Summary Discharge Rx Participant: No New Discharge Prescriptions: New LORazepam [Ativan] 1 mg PO TID PRN #20 tab PRN Reason: Alcohol Withdrawal Omeprazole [PriLOSEC] 40 mg PO -[facility] #14 capsule. Thiamine [Vitamin B-1] 100 mg PO DAILY #30 tablet No Action Aspirin 81 mg PO DAILY #30 chew Atorvastatin [Lipitor] 80 mg PO HS #30 tab Spironolactone [Aldactone] 25 mg PO DAILY #30 tab rOPINIRole HCL [Requip] 0.25 mg PO TID Prochlorperazine [Compazine] 10 mg PO DAILY PRN PRN Reason: Nausea DULoxetine HCL [Cymbalta] 60 mg PO DAILY Discharge Medication List Aspirin 81 mg PO DAILY #30 chew 10/01/13 [Rx] Atorvastatin [Lipitor] 80 mg PO HS #30 tab 10/01/13 [Rx] Spironolactone [Aldactone] 25 mg PO DAILY #30 tab 10/01/13 [Rx] DULoxetine HCL [Cymbalta] 60 mg PO DAILY 06/27/17 [History] Prochlorperazine [Compazine] 10 mg PO DAILY PRN 06/27/17 [History] rOPINIRole HCL [Requip] 0.25 mg PO TID 06/27/17 [History] LORazepam [Ativan] 1 mg PO TID PRN #20 tab 06/29/17 [Rx] Omeprazole [PriLOSEC] 40 mg PO [id number] #14 capsule. 06/29/17 [Rx] Thiamine [Vitamin B-1] 100 mg PO DAILY #30 tablet 06/29/17 [Rx] Follow up Appointment(s)/Referral(s): Zaid Mallory MD [Primary Care Provider] - 3 Days Discharge Disposition: HOME SELF-CARE
--- NOTE | 2017-06-29 13:22 | P.PN ---
Subjective Progress Note Date: 06/29/17 Patient is a 46-year-old male who is being followed by the neurology service for weakness and numbness. Patient presented to [facility] originally with complaints of chest pain. He also complained of headache. Upon admission, computed tomography scan of the brain was done which was normal. Patient arrived up on the medical floor and had sudden onset generalized weakness and numbness. Code stroke was called repeat CT of the scan was done which again was normal. CT angiogram of the brain was done which showed no significant abnormality. Patient states he continues to have generalized weakness but is slightly improved.. No lateralizing weakness is noted. Patient does have history of severe depression and psychiatrist been consulted. At the time of my evaluation, patient is resting comfortably in bed and appears to be in no acute distress. Objective - Vital Signs Vital signs: Vital Signs Temp 96.0 F L 06/29/17 11:13 Pulse 94 06/29/17 11:13 Resp 17 06/29/17 11:13 BP 138/85 06/29/17 11:13 Pulse Ox 93 L 06/29/17 11:13 Intake & Output 06/28/17 06/29/17 06/29/17 18:59 06:59 18:59 Intake Total 472 600 Balance 472 600 Weight 85 kg 83.9 kg Intake: Oral 472 600 Other: Voiding Method Toilet Toilet Toilet # Voids 1 1 - Exam PHYSICAL EXAM: GENERAL APPEARANCE: Patient is a well-developed, male who appears to be in no acute distress. HEENT: Normocephalic, atraumatic, no facial asymmetry is seen. Neck is supple with no masses felt. CARDIOVASCULAR: Regular rate and rhythm. ABDOMEN: Nontender, nondistended. EXTREMITIES: Show no edema or clubbing. NEUROLOGICAL EXAM: Patient is awake, alert, and oriented 3. Speech and language are normal. Strength showed significant giveaway weakness in bilateral lower extremities. Sensory exam is slightly diminished on the left as compared to the right. No facial asymmetry is seen on cranial nerve testing. No tremors or seizure-like activity noted. - Labs CBC & Chem 7: 06/27/17 12:40 06/27/17 12:40 Assessment and Plan Plan: Impression: 1. Atypical generalized weakness 2. Left-sided sensory deficit 3. Severe depression Recommendations: Patient continues to experience generalized weakness. No lateralizing weakness is noted. As mentioned above, CT of the brain and CT angiogram were normal. Psychiatric consultation is noted. MRI of the brain was done to rule out any ischemic event an MRI was unremarkable. Patient is currently on aspirin therapy. No further neurological workup needed at this time. Patient is stable from a neurological standpoint. I will continue to follow with you on an as-needed basis. Feel free to call with any questions or concerns. I performed an examination of the patient and discussed the management with the AGRONOMY RESEARCH MANAGER. I have reviewed the AGRONOMY RESEARCH MANAGER notes and agree with the findings and plan of care.
[2017-06-29] MEDS ORDERED: HYDROmorphone 2 MG TAB PO PRN (15:05)
--- NOTE | 2017-07-05 11:00 | ECHOF ---
Referral Reason:chest pain MEASUREMENTS -------- HEIGHT: 66.0 cm WEIGHT: 200.0 kg BP: IVSd: 0.8 cm (0.6 - 1.1) LVIDd: 3.9 cm (3.9 - 5.3) LVPWd: 0.8 cm (0.6 - 1.1) IVSs: 1.4 cm LVIDs: 2.2 cm LVPWs: 1.7 cm IVSd: 3.2 cm (0.6 - 1.1) Ao Diam: 3.0 cm (2.0 - 3.7) AV Cusp: 1.7 cm (1.5 - 2.6) LA Diam: 2.7 cm (2.7 - 3.8) MV EXCURSION: 19.436 mm (> 18.000) MV EF SLOPE: 58 mm/s (70 - 150) EPSS: 0.4 cm MV E Moustapha: 0.65 m/s MV DecT: 135 ms MV A Moustapha: 0.70 m/s MV E/A Ratio: 0.92 RAP: 5.00 mmHg RVSP: 16.07 mmHg FINDINGS -------- Sinus rhythm. This was a technically good study. The left ventricular size is normal. Left ventricular wall thickness is normal. Overall left vent ricular systolic function is normal with, an EF between 55 - 60 %. The right ventricle is normal in size and function. The left atrium is normal in size. The right atrium is normal in size. The aortic valve is trileaflet, and appears structurally normal. No aortic stenosis or regurgitation. There is trace mitral regurgitation. Trace tricuspid regurgitation present. The right ventricular systolic pressure, as measured by Dopp ler, is 16.07mmHg. Pulmonic valve appears structurally normal. The aortic root size is normal. The pericardium is normal. CONCLUSIONS -------- 1. Sinus rhythm. 2. This was a technically good study. 3. The left ventricular size is normal. 4. Left ventricular wall thickness is normal. 5. Overall left ventricular systolic function is normal with, an EF between 55 - 60 %. 6. The right ventricle is normal in size and function. 7. The left atrium is normal in size. 8. The right atrium is normal in size. 9. The aortic valve is trileaflet, and appears structurally normal. No aortic stenosis or regurgitati on. 10. There is trace mitral regurgitation. 11. Trace tricuspid regurgitation present. 12. The right ventricular systolic pressure, as measured by Doppler, is 16.07mmHg. 13. Pulmonic valve appears structurally normal. 14. The aortic root size is normal. 15. The pericardium is normal. TRUCK DRIVER HEAVY: Aura Andrew RDCS
== END 2017-06-29 17:05 | disposition home or self-care (01) ==
LOC: EC 12:27 → 3OBS 14:54 → 6SEL 06-28 13:00
PROVIDERS: ADMIT Hospitalist; ATTEND Hospitalist
DX: R07.89 Other chest pain (principal); R55 Syncope and collapse; F45.9 Somatoform disorder, unspecified; F32.9 Major depressive disorder, single episode, unspecified; F41.9 Anxiety disorder, unspecified; K29.20 Alcoholic gastritis without bleeding; F10.20 Alcohol dependence, uncomplicated; Z86.74 Personal history of sudden cardiac arrest; I25.10 Atherosclerotic heart disease of native coronary artery without angina pectoris; Z95.5 Presence of coronary angioplasty implant and graft; K21.9 Gastro-esophageal reflux disease without esophagitis; I10 Essential (primary) hypertension; E78.5 Hyperlipidemia, unspecified; G47.33 Obstructive sleep apnea (adult) (pediatric); G25.0 Essential tremor; G43.909 Migraine, unspecified, not intractable, without status migrainosus; G25.81 Restless legs syndrome; F12.90 Cannabis use, unspecified, uncomplicated; I25.2 Old myocardial infarction; R29.818 Other symptoms and signs involving the nervous system; Z63.0 Problems in relationship with spouse or partner; Z79.82 Long term (current) use of aspirin; Z79.899 Other long term (current) drug therapy; Z88.5 Allergy status to narcotic agent; Z88.8 Allergy status to other drugs, medicaments and biological substances; Z87.891 Personal history of nicotine dependence; Z86.718 Personal history of other venous thrombosis and embolism; Z87.442 Personal history of urinary calculi; Z82.49 Family history of ischemic heart disease and other diseases of the circulatory system; Z80.8 Family history of malignant neoplasm of other organs or systems; Z82.0 Family history of epilepsy and other diseases of the nervous system; Z83.79 Family history of other diseases of the digestive system
CPT/HCPCS: 99291 ×2; 96374 ×2; 96375 ×5; 96376 ×3; 96372; 36415; 94760; 93005; 93306; 97162; 97165; 92523; 85379; 83880; 80061; 80053; 82550 ×2; 82553 ×2; 83690; 83735; 84484 ×2; 85025; 85610; 85730; 71046; 70496; 70450; 70498; 70551; G0378 ×3; J2060 ×3; J2270; J1644; Q9967; J2405; J1170 ×2

== ENCOUNTER 2017-08-02 07:57 | Day surgery (SDC) | payer MEDICARE ==
[2017-07-30 14:16] VITALS: BMI 24.4
[~2017-08-02 07:57] MED LIST: SODIUM CHLORIDE 0.9% 1,000 ML IV SCH
[2017-08-02 08:30] VITALS: BP 103/67; PULSE 80; RESP 18; TEMP 98
--- NOTE | 2017-08-02 19:04 | P.PCN ---
Preoperative Diagnosis: Twelve-lead ECG Sinus rhythm normal AK narrow QRS normal ST segments normal QT interval no epsilon waves no delta waves Tilt table test Tilt table test per protocol. Baseline blood pressure 111/67 mmHg Baseline heart rate 70 beats a minute. Patient was tilted upright at an angle of 70 per protocol there waschange his heart rate or blood pressure is laid supine at the end of the procedure Impression No evidence for neurocardiogenic syncope No evidence for dysautonomia Normal heart rate and blood pressure response to upright tilting Disposition: same day
== END 2017-08-02 09:35 | disposition home or self-care (01) ==
LOC: CATHEP 07:57
PROVIDERS: ATTEND Internal Medicine Clinical Cardiac Electrophysiology
DX: I25.10 Atherosclerotic heart disease of native coronary artery without angina pectoris (principal); E78.5 Hyperlipidemia, unspecified; I10 Essential (primary) hypertension; R55 Syncope and collapse; Z79.82 Long term (current) use of aspirin; Z79.899 Other long term (current) drug therapy; Z95.5 Presence of coronary angioplasty implant and graft; Z87.891 Personal history of nicotine dependence
CPT/HCPCS: 93005; 93660

== ENCOUNTER 2018-08-21 13:47 | Observation (INO) | payer MEDICARE ==
[2018-08-21] MEDS ORDERED: ASPIRIN 81 MG PO STA (14:04)
[2018-08-21] MEDS ORDERED: LORazepam 2 MG/ML INJ IV STA (14:04)
[2018-08-21] MEDS ORDERED: NITROGLYCERIN OINT 1 INCH/GM PACKET TOPICAL STA (14:04)
--- NOTE | 2018-08-21 14:06 | ED ---
General Adult HPI - General Chief complaint: Chest Pain Stated complaint: chest pain Time Seen by Provider: 08/21/18 13:50 Source: patient, RN notes reviewed Mode of arrival: ambulatory Limitations: no limitations - History of Present Illness Initial comments: This is a 47-year-old male who has a past medical history significant for coronary artery disease and stent placement. Patient also has high cholesterol. Patient states he has a very strong family history of heart disease. Patient states starting last night he started getting some left-sided shoulder and arm pain. As of today it spread into his chest more laterally than anterior. Patient states he was diaphoretic at times. Patient states the pain waxes and wanes. Patient denies any shortness of breath currently states the pain is slightly better than it has been. Patient denies any nausea. Patient denies abdominal pain patient denies nausea vomiting diarrhea. Patient denies any recent fever chills or cough per patient denies lightheadedness dizziness or near-syncopal episode. Patient denies headache patient denies numbness weakness. Patient states this pain is slightly different pain he had before when he had a heart attack. - Related Data Home Medications Medication Instructions Recorded Confirmed DULoxetine HCL [Cymbalta] 60 mg PO BID 06/27/17 08/21/18 Nitroglycerin Sl Tabs [Nitrostat] 0.4 mg SUBLINGUAL Q5M PRN 07/30/17 08/21/18 Atorvastatin [Lipitor] 80 mg PO DAILY 08/21/18 08/21/18 Unknown Otc For Nausea 1 tab PO Q6H PRN 08/21/18 08/21/18 Previous Rx's Medication Instructions Recorded Aspirin 81 mg PO DAILY #30 chew 10/01/13 Spironolactone [Aldactone] 25 mg PO DAILY #30 tab 10/01/13 Allergies Allergy/AdvReac Type Severity Reaction Status Date / Time hydroxyzine HCl Allergy Unknown Verified 08/21/18 14:17 [From Vistaril] hydroxyzine pamoate Allergy Unknown Verified 08/21/18 14:17 [From Vistaril] meperidine HCl [From Demerol] Allergy Unknown Verified 08/21/18 14:17 Review of Systems ROS Statement: Those systems with pertinent positive or pertinent negative responses have been documented in the HPI. ROS Other: All systems not noted in ROS Statement are negative. Past Medical History Past Medical History: Deep Vein Thrombosis (DVT), GERD/Reflux, Hyperlipidemia, Myocardial Infarction ([place]), Rheumatoid Arthritis ([place]), Sleep Apnea/CPAP/BIPAP Additional Past Medical History / Comment(s): See Dr Bull Chang&Any, 10-01-13 Cardiac arrest positive mi, was coded / placed on vent for 2 days, kidney stones , essential tremor, hx migraines, chronic "sour stomach", no cpap used since wt loss Last Myocardial Infarction Date:: 2013 History of Any Multi-Drug Resistant Organisms: None Reported Past Surgical History: Heart Catheterization, Heart Catheterization With Stent Additional Past Surgical History / Comment(s): 2 cardiac stents, laser sx for kidney stone Past Anesthesia/Blood Transfusion Reactions: No Reported Reaction Date of Last Stent Placement:: 09/23/13 Past Psychological History: Anxiety, Depression Smoking Status: Former smoker Past Alcohol Use History: Daily Past Drug Use History: Marijuana - Past Family History Father Family Medical History: Congestive Heart Failure (CHF), Hyperlipidemia, Hypertension, Myocardial Infarction ([place]) Additional Family Medical History / Comment(s): cabg(quad), then post cabd had cath with stents, kidney stones, diverticulits/ sx with temporary colostomy Mother Family Medical History: Cancer Additional Family Medical History / Comment(s): skin cancer General Exam - General Exam Comments Initial Comments: GENERAL: Patient is well-developed and well-nourished. Patient is nontoxic and well- hydrated and is in mild distress. ENT: Neck is soft and supple. No significant lymphadenopathy is noted. Oropharynx is clear. Moist mucous membranes. Neck has full range of motion without eliciting any pain. EYES: The sclera were anicteric and conjunctiva were pink and moist. Extraocular movements were intact and pupils were equal round and reactive to light. Eyelids were unremarkable. PULMONARY: Unlabored respirations. Good breath sounds bilaterally. No audible rales rhonchi or wheezing was noted. CARDIOVASCULAR: There is a regular rate and rhythm without any murmurs gallops or rubs. ABDOMEN: Soft and nontender with normal bowel sounds. No palpable organomegaly was noted. There is no palpable pulsatile mass. SKIN: Skin is clear with no lesions or rashes and otherwise unremarkable. NEUROLOGIC: Patient is alert and oriented x3. Cranial nerves II through XII are grossly intact. Motor and sensory are also intact. Normal speech, volume and content. Symmetrical smile. MUSCULOSKELETAL: Normal extremities with adequate strength and full range of motion. No lower extremity swelling or edema. No calf tenderness. LYMPHATICS: No significant lymphadenopathy is noted PSYCHIATRIC: Patient is anxious and states he does have history of anxiety. Limitations: no limitations Course Vital Signs 08/21/18 13:49 Temperature 98.7 F Pulse Rate 79 Respiratory 18 Rate Blood Pressure 143/99 O2 Sat by Pulse 99 Oximetry Medical Decision Making - Medical Decision Making EKG shows normal sinus rhythm at 86 bpm ND interval is on a 46 QRS is 94 QT interval 360 QTC is 440 per patient's EKG shows no ST segment elevation or depression or T wave abnormalities are noted. Chest x-ray shows no acute abnormality. I started the patient heparin because of unstable angina. I spoke with Dr. Martin he agreed to admit the patient admitted the patient I consult cardiology continue heparin and aspirin on the floor. - Lab Data Result diagrams: 08/21/18 14:10 08/21/18 14:10 Lab Results 08/21/18 08/21/18 08/21/18 Range/Units 14:10 14:10 14:10 WBC 6.3 (3.8-10.6) k/uL RBC 4.86 (4.30-5.90) m/uL Hgb 15.3 (13.0-17.5) gm/dL Hct 47.5 (39.0-53.0) % MCV 97.8 (80.0-100.0) fL MCH 31.6 (25.0-35.0) pg MCHC 32.3 (31.0-37.0) g/dL RDW 12.2 (11.5-15.5) % Plt Count 206 (150-450) k/uL Neutrophils % 62 % Lymphocytes % 30 % Monocytes % 4 % Eosinophils % 2 % Basophils % 1 % Neutrophils # 3.9 (1.3-7.7) k/uL Lymphocytes # 1.9 (1.0-4.8) k/uL Monocytes # 0.2 (0-1.0) k/uL Eosinophils # 0.1 (0-0.7) k/uL Basophils # 0.1 (0-0.2) k/uL PT 9.9 (9.0-12.0) sec INR 0.9 (<1.2) APTT 23.6 (22.0-30.0) sec Sodium 138 (137-145) mmol/L Potassium 4.5 (3.5-5.1) mmol/L Chloride 104 (98-107) mmol/L Carbon Dioxide 26 (22-30) mmol/L Anion Gap 8 mmol/L BUN 17 (9-20) mg/dL Creatinine 0.99 (0.66-1.25) mg/dL Est GFR (CKD-EPI)AfAm >90 (>60 ml/min/1.73 sqM) Est GFR (CKD-EPI)NonAf 89 (>60 ml/min/1.73 sqM) Glucose 104 H (74-99) mg/dL Calcium 9.8 (8.4-10.2) mg/dL Magnesium 1.8 (1.6-2.3) mg/dL Total Bilirubin 1.0 (0.2-1.3) mg/dL AST 41 (17-59) U/L ALT 45 (21-72) U/L Alkaline Phosphatase 52 (38-126) U/L Troponin I (0.000-0.034) ng/mL Total Protein 7.3 (6.3-8.2) g/dL Albumin 4.4 (3.5-5.0) g/dL 08/21/18 Range/Units 14:10 WBC (3.8-10.6) k/uL RBC (4.30-5.90) m/uL Hgb (13.0-17.5) gm/dL Hct (39.0-53.0) % MCV (80.0-100.0) fL MCH (25.0-35.0) pg MCHC (31.0-37.0) g/dL RDW (11.5-15.5) % Plt Count (150-450) k/uL Neutrophils % % Lymphocytes % % Monocytes % % Eosinophils % % Basophils % % Neutrophils # (1.3-7.7) k/uL Lymphocytes # (1.0-4.8) k/uL Monocytes # (0-1.0) k/uL Eosinophils # (0-0.7) k/uL Basophils # (0-0.2) k/uL PT (9.0-12.0) sec INR (<1.2) APTT (22.0-30.0) sec Sodium (137-145) mmol/L Potassium (3.5-5.1) mmol/L Chloride (98-107) mmol/L Carbon Dioxide (22-30) mmol/L Anion Gap mmol/L BUN (9-20) mg/dL Creatinine (0.66-1.25) mg/dL Est GFR (CKD-EPI)AfAm (>60 ml/min/1.73 sqM) Est GFR (CKD-EPI)NonAf (>60 ml/min/1.73 sqM) Glucose (74-99) mg/dL Calcium (8.4-10.2) mg/dL Magnesium (1.6-2.3) mg/dL Total Bilirubin (0.2-1.3) mg/dL AST (17-59) U/L ALT (21-72) U/L Alkaline Phosphatase (38-126) U/L Troponin I <0.012 (0.000-0.034) ng/mL Total Protein (6.3-8.2) g/dL Albumin (3.5-5.0) g/dL Critical Care Time Critical Care Time: Yes Total Critical Care Time: 35 Disposition Clinical Impression: Unstable angina Disposition: ADMITTED IP TO THIS HOSP Referrals: Zaid Mallory MD [Primary Care Provider] - 1-2 days Time of Disposition: 15:13
[2018-08-21 14:22] LABS: Basophils # (A) 0.1 k/uL (0-0.2); Basophils % (A) 1 %; Eosinophils # (A) 0.1 k/uL (0-0.7); Eosinophils % (A) 2 %; HCT 47.5 % (39.0-53.0); HGB 15.3 gm/dL (13.0-17.5); Lymphocytes # (A) 1.9 k/uL (1.0-4.8); Lymphocytes % (A) 30 %; MCH 31.6 pg (25.0-35.0); MCHC 32.3 g/dL (31.0-37.0); MCV 97.8 fL (80.0-100.0); Mean Platelet Volume 6.8; Monocytes # (A) 0.2 k/uL (0-1.0); Monocytes % (A) 4 %; Neutrophils # (A) 3.9 k/uL (1.3-7.7); Neutrophils % (A) 62 %; Platelet Count 206 k/uL (150-450); RBC 4.86 m/uL (4.30-5.90); RDW 12.2 % (11.5-15.5); WBC 6.3 k/uL (3.8-10.6)
[2018-08-21 14:39] LABS: ALT 45 U/L (21-72); AST 41 U/L (17-59); Albumin 4.4 g/dL (3.5-5.0); Alkaline Phosphatase 52 U/L (38-126); Anion Gap 8 mmol/L; Blood Urea Nitrogen 17 mg/dL (9-20); Calcium 9.8 mg/dL (8.4-10.2); Carbon Dioxide 26 mmol/L (22-30); Chloride 104 mmol/L (98-107); Glucose 104 mg/dL (74-99); Magnesium 1.8 mg/dL (1.6-2.3); Potassium 4.5 mmol/L (3.5-5.1); Sodium 138 mmol/L (137-145); Total Protein 7.3 g/dL (6.3-8.2)
[2018-08-21 14:41] LABS: INR 0.9 (<1.2); Partial Thromboplastin Time 23.6 sec (22.0-30.0); Prothrombin Time 9.9 sec (9.0-12.0)
--- NOTE | 2018-08-21 15:03 | XR ---
EXAMINATION TYPE: XR chest 2V DATE OF EXAM: 08/21/2018 COMPARISON: Chest x-ray June 27, 2017 HISTORY: Chest pain into shoulder for one day. TECHNIQUE: Frontal and lateral views of the chest are obtained. FINDINGS: Overlying EKG leads are seen currently. There is no focal air space opacity, pleural effusi on, or pneumothorax seen. The cardiac silhouette size is within normal limits. The osseous structu res are intact. IMPRESSION: No acute cardiopulmonary process. No significant change from prior.
[2018-08-21] MEDS ORDERED: HEPARIN SODIUM,PORCINE 5,000 UNIT/ML 1 ML VIAL IV ONE (15:06)
[2018-08-21] MEDS ORDERED: NITROGLYCERIN SL TABS 0.4 MG TAB SUBLINGUAL PRN (15:13)
[2018-08-21] MEDS: HEPARIN SOD,PORK IN 0.45% NACL 25,000 UNIT in 0.45% NACL 1 250ML.BAG IV SCH (16:29)
[2018-08-21 17:25] VITALS: BMI 27.0
[2018-08-21] MEDS ORDERED: NITROGLYCERIN OINT 1 INCH/GM PACKET TOPICAL SCH (18:00)
[2018-08-21] MEDS: ALPRAZolam 0.25 MG TAB PO PRN ×2 (18:04→23:40)
[2018-08-21] MEDS ORDERED: ACETAMINOPHEN TAB 325 MG TAB PO STA (18:24)
--- NOTE | 2018-08-21 22:39 | HP ---
HISTORY AND PHYSICAL DATE OF ADMISSION: 08/21/2018 DATE OF SERVICE: 08/21/2018 PRESENTING COMPLAINT: Chest pressure. HISTORY OF PRESENTING COMPLAINT: This is a pleasant 47-year-old patient of Dr. 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 Banuelos. Chronic stable medical conditions include hypertension and GERD, hyperlipidemia. The patient had a stent in September of 2013. The same year, the patient also had DVT and PE. The patient in the last one years has not followed up with Cardiology. The patient started off with left precordial pain yesterday going down his upper arm. Maintained as a low ache, felt more like a pressure has been present most of the day. No shortness of breath, some nausea. The patient has been having episodes of cold sweats. Tired and run down. I came to see the patient. The patient is still having active chest pain. The patient's 1st troponin was negative. REVIEW OF SYSTEMS: CONSTITUTIONAL: None. HEENT: None. RESPIRATORY: None. CARDIOVASCULAR: As above. GASTROINTESTINAL: Heartburn. GENITOURINARY: None. MUSCULOSKELETAL: Occasional pain in the joints. DERMATOLOGICAL, HEMATOLOGIC, LYMPHATIC: none. PSYCHIATRY none. NEUROLOGICAL: None. PAST MEDICAL HISTORY: DVT, PE in 2013, GERD, hyperlipidemia, mild rheumatoid arthritis, obstructive sleep apnea, not anymore. Also had a cardiac arrest with [place], was on the ventilator for 2 days, kidney stones, essential hypertension. PAST SURGICAL HISTORY: Cardiac cath with 2 stents, laser for kidney stones. PSYCH HISTORY: Bipolar disorder. SOCIAL HISTORY: The patient smoked a pack a day for close to 26 years. Stopped in 2013. Occasional marijuana. Lives with his family. Not employed. Alcohol occasionally. FAMILY HISTORY: Skin cancer. HOME MEDICATIONS: 1. Aldactone 25 mg a day. 2. Nitrostat 0.4 sublingual q.5 p.r.n. 3. Cymbalta 60 mg b.i.d. 4. Lipitor 80 mg p.o. daily. 5. Aspirin 81 mg p.o. daily. ALLERGIES: TO VISTARIL, DEMEROL. PHYSICAL EXAMINATION: VITAL SIGNS: Temperature 98.6, pulse 80, respirations 16, blood pressure 150/94, pulse ox 98% on room air. GENERAL APPEARANCE: Average build, lying in bed, awake. EYES: Pupils equal. Conjunctivae normal. HEENT: External appearance of nose and ears normal. Oral cavity normal. NECK: JVD not raised. Mass not palpable. RESPIRATORY: Effort normal. LUNGS are clear. CARDIOVASCULAR: First and second sounds normal. No edema. ABDOMEN: Soft, nontender. Liver and spleen not palpable. LYMPHATICS: No lymph nodes palpable in neck or axillae. PSYCHIATRY: Alert and oriented x3. Mood and affect normal. NEUROLOGICAL: Pupils equal. Cranial nerves grossly intact. Power and sensation grossly intact. INVESTIGATIONS: White count 6.3, hemoglobin 15.3, potassium 4.5. BUN and creatinine is normal. First troponin negative. EKG tracing personally reviewed by me shows normal sinus rhythm. Chest x-ray film personally reviewed by me shows no obvious infiltrate. ASSESSMENT: 1. Unstable angina in a patient with known coronary artery disease with stent in 2013. The patient is having active chest pain. There has been no EKG changes, troponin. The patient is already running on IV heparin. We will also add nitroglycerin drip. 2. Coronary artery disease with stent in 2013. 3. Gastroesophageal reflux disease. 4. Hyperlipidemia. 5. Essential hypertension. PLAN: Patient is already on IV heparin, aspirin. The patient is still having episodes of perspiration and chest pain. I will put the patient on nitro drip. Cardiology has been consulted. Serial cardiac enzymes are in place. The patient will be put into inpatient status and moved to cardiology floor. Depending on his clinical course and enzymes, cardiac intervention is a possibility. MMODL / IJN: [id number] /
[2018-08-21] MEDS: DULoxetine HCL 60 MG CAPSULE.DR PO SCH (23:40)
[2018-08-22] MEDS ORDERED: NITROGLYCERIN-D5W PMX 50 MG in DEXTROSE/WATER 1 250ML.BAG IV SCH (02:00)
[2018-08-22 03:45] LABS: Cholesterol 108 mg/dL (<200); HDL Cholesterol 86 mg/dL (40-60); LDL Cholesterol,Calculated 6 mg/dL (0-99); Triglycerides 79 mg/dL (<150)
[2018-08-22] MEDS ORDERED: ACETAMINOPHEN TAB 325 MG TAB PO PRN (06:43)
[2018-08-22] MEDS: ASPIRIN 325 MG TAB PO SCH (08:25)
[2018-08-22] MEDS: ATORVASTATIN 80 MG TAB PO SCH (08:25)
[2018-08-22] MEDS: ALPRAZolam 0.25 MG TAB PO PRN (08:25)
[2018-08-22] MEDS: SPIRONOLACTONE 25 MG TAB PO SCH (08:25)
[2018-08-22] MEDS: DULoxetine HCL 60 MG CAPSULE.DR PO SCH ×2 (08:25→20:51)
[2018-08-22] MEDS ORDERED: ASPIRIN 325 MG TAB PO STA (11:15)
[2018-08-22] MEDS ORDERED: ATORVASTATIN 80 MG TAB PO STA (11:15)
[2018-08-22] MEDS ORDERED: ALPRAZolam 0.25 MG TAB PO PRN (11:15)
[2018-08-22] MEDS ORDERED: SODIUM CHLORIDE 0.9% 1,000 ML in EMPTY BAG 1 BAG IV ONE (11:15)
[2018-08-22 11:59] LABS: Glucose,Whole Blood 100 mg/dL (75-99)
--- NOTE | 2018-08-22 13:20 | CONS ---
CONSULTATION CHIEF COMPLAINT: Chest pain. Roberto is a 47-year-old gentleman with history of coronary artery disease, status post prior angioplasty, and dyslipidemia who follows with Dr. Banuelos on a regular basis, comes into hospital complaining of chest pain. He describes it as a precordial chest pressure with left arm radiation. He has had these symptoms going on for the last several days. Was concerned, comes into hospital and was admitted for the same. At the time of my evaluation, he appears comfortable at rest and is being treated with intravenous heparin. EKG does not reveal acute ischemic changes. Cardiac enzymes have been negative. His cholesterol is a very low, HDL is 86. Given his typical symptoms and known coronary artery disease, I advised the patient to undergo invasive angiography for definitive diagnosis and optimal therapy. PAST MEDICAL HISTORY: Past medical history is significant for coronary artery disease, status post angioplasty and dyslipidemia. CURRENT MEDICATIONS: Current medications include Cymbalta, Lipitor and aspirin. ALLERGIES: Allergic to VISTARIL and DEMEROL. FAMILY HISTORY: Family history is significant for premature coronary artery disease. SOCIAL HISTORY: Negative for current smoking, EtOH abuse. He smokes marijuana intermittently. REVIEW OF SYSTEMS: HEENT is unremarkable. CARDIAC: As described above. RESPIRATORY: Negative. GI: Negative. GENITOURINARY: Negative. ALLERGY/IMMUNOLOGY: Negative. SKIN: Negative. MUSCULOSKELETAL: Significant for arthritis. PSYCHOSOCIAL: Negative. ENDOCRINE: Negative. HEMATOLOGICAL: Negative. DERM: Negative. CONSTITUTIONAL: Negative. ONCOLOGICAL: Negative. Rest of the system review is not relevant. PHYSICAL EXAMINATION: On exam, patient is comfortable at rest. Vital signs are stable. There is no jugular venous distention. Carotid upstroke is normal. There is no bruit. Chest exam reveals good air entry bilaterally. Heart exam reveals first and second heart sounds. No gallop. No murmur. No rub. Abdomen is soft, nontender. Examination of extremities did not reveal any edema. Peripheral pulses are felt. MULTIPLE NEEDLE STITCHER exam did not reveal focal neurological deficits. LABS: Labs show a hemoglobin of 15.3, platelet count is 206. Three sets of troponins are negative. Creatinine is 0.9. EKG does not reveal acute ischemic changes. ASSESSMENT: Unstable angina. PLAN: I advised the patient to undergo cardiac catheterization for further evaluation. He understands risks and benefits. MMODL / IJN: [id number] /
[2018-08-22] MEDS: NITROGLYCERIN SL TABS 0.4 MG TAB SUBLINGUAL PRN ×3 (14:40→15:48)
[2018-08-22] MEDS: ALPRAZolam 0.5 MG TAB PO PRN ×2 (14:43→20:51)
[2018-08-22] MEDS: HEPARIN SOD,PORK IN 0.45% NACL 25,000 UNIT in 0.45% NACL 1 250ML.BAG IV SCH (17:11)
[2018-08-22] MEDS ORDERED: HEPARIN SODIUM 1,000 UN/ML (10ML VL) ONE (17:16)
[2018-08-22] MEDS ORDERED: VERAPAMIL 2.5 MG/ML 2 ML AMP ONE (17:16)
[2018-08-22] MEDS ORDERED: LIDOCAINE 1% INJ 10MG/ML (20 ML MDV) ONE (17:16)
[2018-08-22] MEDS ORDERED: IV FLUID CONTINUATION 1,000 ML IV ONE (17:36)
[2018-08-22] MEDS ORDERED: MIDAZOLAM (PF) 2 MG/2 ML VIAL IV ONE ×3 (17:47→18:01)
[2018-08-22] MEDS ORDERED: LIDOCAINE 1% INJ 10MG/ML (20 ML MDV) SQ ONE (17:49)
[2018-08-22] MEDS ORDERED: fentaNYL (PF) 50 MCG/ML 2 ML AMP ONE (17:58)
[2018-08-22] MEDS: VERAPAMIL SYRINGE (5 MG/10 ML) INTRAARTER ONE ×2 (17:59→18:09)
[2018-08-22] MEDS ORDERED: HEPARIN SODIUM 1,000 UN/ML (10ML VL) IV ONE (18:00)
[2018-08-22] MEDS ORDERED: fentaNYL (PF) 50 MCG/ML 2 ML AMP IV ONE (18:01)
[2018-08-22] MEDS ORDERED: IOPAMIDOL-370 100ML BTL INJ ONE (18:05)
[2018-08-22] MEDS ORDERED: RX INFO: IV CONTRAST WAS GIVEN 1 EACH MISC MISCELLANE PRN (18:17)
[2018-08-22] MEDS ORDERED: SODIUM CHLORIDE 0.9% 1,000 ML IV SCH (18:30)
[2018-08-22 20:37] VITALS: RESP 16
[2018-08-22 20:47] LABS: Glucose,Whole Blood 221 mg/dL (75-99)
--- NOTE | 2018-08-22 21:56 | PN ---
PROGRESS NOTE DATE OF SERVICE: 08/22/2018 PRESENTING COMPLAINT: Chest pain. INTERVAL HISTORY: This patient with known coronary artery disease presented with unstable angina, rather cardiac sounding presentation. The patient is put on IV heparin and also IV nitro but because of headache had to be held off temporarily. The patient was going for cardiac cath today this afternoon before I saw the patient and family at the bedside. REVIEW OF SYSTEMS: Done for constitutional, cardiovascular, GI, pulmonary and relevant findings as above. MEDICATIONS: Reviewed and Include IV heparin. PHYSICAL EXAMINATION: VITAL SIGNS: Temperature 98.9, pulse 80, respiratory rate 18, blood pressure 150/87, pulse ox 98% on room air. GENERAL APPEARANCE: Lying in bed, a bit anxious-appearing. EYES: Pupils equal. Conjunctivae normal. NECK: JVD not raised. Mass not palpable. RESPIRATORY: Effort increased. LUNGS: Are clear. CARDIOVASCULAR: 1st and 2nd sounds normal. No edema. ABDOMEN: Soft, nontender. Liver and spleen not palpable. PSYCHIATRY: Alert and oriented x3. Mood and affect normal. INVESTIGATIONS: LDL is 6. Troponin negative. ASSESSMENT: 1. Unstable angina in a patient with known coronary artery disease. 2. Coronary artery disease with stent in 2013. 3. Gastroesophageal reflux disease. 4. Hyperlipidemia. 5. Essential hypertension. PLAN: Continue current medication and treatment plan. On IV heparin. Patient is awaiting a cardiac cath. Will take it from there. MMODL / IJN: [id number] /
[2018-08-22 22:46] LABS: Glucose,Whole Blood 78 mg/dL (75-99)
--- NOTE | 2018-08-22 23:25 | CC ---
CARDIAC CATHETERIZATION REPORT DATE OF SERVICE: August 22, 2018 PERFORMING PHYSICIAN: José Banuelos MD, grip assembler. PROCEDURE PERFORMED: 1. Selective right and left coronary angiogram. 2. Left heart catheterization. INDICATION: This is a pleasant 47-year-old gentleman with history of coronary artery disease and prior stenting of the LAD, presented to the hospital complaining of chest discomfort and continues to have ongoing chest discomfort. He was seen and evaluated by Dr. Bearden who recommended proceeding with a heart catheterization to rule out any severe underlying coronary artery disease. APPROACH: Right radial artery. COMPLICATION: None. LEVEL OF SEDATION: Moderate with sedation length of 22 minutes. PROCEDURE DESCRIPTION: After obtaining an informed consent, the patient was brought to the cardiac laborer hide house. The right radial artery was cannulated using micropuncture technique, the micropuncture wire passed easily. Then I placed a 6-Iraqi sheath in the right radial artery. After that I gave the patient 2 mg of verapamil IA and 8000 units of heparin IV. After that, I did selective right and left coronary angiogram using JR4 and JL3.5 catheters. I did left heart catheterization using the JR4 catheter which filled into the LV. Then I did pullback across aortic valve. The procedure was completed without any complication. SELECTIVE CORONARY ANGIOGRAM: RIGHT CORONARY ARTERY : The right coronary artery is a large caliber vessel, it is a dominant vessel, angiographically normal. It bifurcates into PDA and PLV branches both appear to be angiographically normal. LEFT MAIN: The left main is angiographically normal. It bifurcates into the circumflex and left anterior descending artery. LEFT CIRCUMFLEX: The left circumflex is a large caliber vessel. It is a nondominant vessel. The proximal circumflex is angiographically normal. The mid circumflex is normal and gives rise into the first and second OM branches both appeared to be angiographically normal and the circumflex distally appeared to be angiographically normal. LEFT ANTERIOR DESCENDING CORONARY ARTERY: The proximal LAD appeared to be normal. The mid LAD is stented and the stent is patent. The LAD in the midportion gives rise into a large diagonal branch which seems to be normal. The LAD distally appeared to be normal. HEMODYNAMICS: The left ventricular end-diastolic pressure was about 10 mmHg without significant gradient across the aortic valve. CONCLUSION: Patent stent in the mid LAD. POSTPROCEDURE MANAGEMENT: 1. Maximize medical treatment. 2. Follow up with the patient. MMODL / IJN: [id number] /
--- NOTE | 2018-08-22 23:26 | LTR ---
DATE OF SERVICE: August 22, 2018. Dr. Carlos Mallory Dear Dr. Mallory: Mr. Roberto Burden underwent today a heart catheterization at [facility] and that revealed normal patent stent in the mid LAD. I want to thank you for allowing us to participate in his care and please do not hesitate to call for any questions or concerns. Sincerely, FERMIN / LEXYN: [id number] /
[2018-08-23 06:11] LABS: Glucose,Whole Blood 87 mg/dL (75-99)
[2018-08-23] MEDS: ATORVASTATIN 80 MG TAB PO SCH (08:46)
[2018-08-23] MEDS: DULoxetine HCL 60 MG CAPSULE.DR PO SCH (08:46)
[2018-08-23] MEDS: ASPIRIN 325 MG TAB PO SCH (08:46)
[2018-08-23] MEDS: SPIRONOLACTONE 25 MG TAB PO SCH (08:46)
[2018-08-23 08:51] VITALS: PULSE 85
[2018-08-23 12:05] VITALS: BP 128/80; TEMP 98
--- NOTE | 2018-08-23 13:22 | P.PN ---
Subjective Progress Note Date: 08/23/18 This is a 47-year-old gentleman with history of coronary artery disease status post prior angioplasty, hyperlipidemia, who follows with Dr. Adhikari in the office. He presented to the hospital with symptoms of chest discomfort and was recommended by Dr. Antoine to undergo cardiac catheterization. Cardiac grant terization was performed yesterday by Dr. Adhikari which revealed a patent stent in the LAD, medical therapy advised. Patient was seen and examined this morning, complaining of mild chest pain, atypical. Hemodynamically stable. Objective - Vital Signs Vital signs: Vital Signs Temp 98.0 F 08/23/18 12:05 Pulse 85 08/23/18 12:05 Resp 16 08/23/18 12:05 BP 128/80 08/23/18 12:05 Pulse Ox 99 08/23/18 12:05 Intake & Output 08/22/18 08/23/18 08/23/18 18:59 06:59 18:59 Intake Total 494.777 240 Output Total 350 Balance 494.777 -350 240 Weight 86.8 kg Intake: IV 75 Intake, IV Titration 419.777 Amount Heparin Sod,Pork in 0.45% 67.777 NaCl 25,000 unit In 0.45 % NaCl 1 250ml.bag @ 11. 36 UNITS/KG/HR 9.991 mls/ hr IV .Q24H [facility] Rx#: [id number] Sodium Chloride 0.9% 1, 352 000 ml In Empty Bag 1 bag @ 1 ML/KG/HR 87.9 mls/hr IV .[id number] [facility] Rx#: [id number] Oral 240 Output: Urine 350 Other: Voiding Method Toilet Toilet # Voids 1 2 0 - Exam PHYSICAL EXAMINATION: GENERAL: 47-year-old gentleman in no acute distress at the time of my examination HEENT: Head is atraumatic, normocephalic. Pupils equal, round. Sclera anicteric. Conjunctiva are clear. Mucous membranes of the mouth are moist. Neck is supple. There is no elevated jugular venous pressure. No carotid bruit is heard. HEART EXAMINATION: Heart S1, S2 normal. No murmur or gallop heard. CHEST EXAMINATION: Lungs are clear to auscultation and precussion. No chest wall tenderness is noted on palpation or with deep breathing. ABDOMEN: Soft, nontender. Bowel sounds are heard. No organomegaly noted. EXTREMITIES: 2+ peripheral pulses with no evidence of peripheral edema and no calf tenderness noted. Right radial site clean and dry, good distal pulse. NEUROLOGIC patient is awake, alert and oriented 3 . . - Labs CBC & Chem 7: 08/21/18 14:10 08/21/18 14:10 Labs: Abnormal Lab Results - Last 24 Hours (Table) 08/22/18 Range/Units 20:46 POC Glucose (mg/dL) 221 H (75-99) mg/dL Assessment and Plan Plan: Assessment and plan #1 chest pain, status post cardiac catheterization which revealed a patent stent in the mid LAD. #2 hyperlipidemia #3 coronary artery disease with prior PCI #4 history of PE and DVT #5 GERD Plan From cardiology's perspective patient may be able to be discharged home. Follow-up appointment will be made with Dr. Adhikari in the office post discharge. DNP note has been reviewed, I agree with a documented findings and plan of care. Patient was seen and examined.
--- NOTE | 2018-08-23 23:47 | DS ---
DISCHARGE SUMMARY DATE OF ADMISSION: August 21, 2018. DATE OF DISCHARGE: August 23, 2018. FINAL DIAGNOSES: 1. Chest pain could be vasospasms in a patient known coronary artery disease. 2. Coronary artery disease with stent in 2013. 3. Gastroesophageal reflux disease. 4. Hyperlipidemia. 5. Essential hypertension. PROCEDURE PERFORMED: Cardiac catheterization. CONSULTATION: Dr. Amelia Bearden/Dr. Maxine Banuelos from Cardiology. HOSPITAL COURSE: This patient with known coronary artery disease presented with rather cardiac sounding presentation. Troponins were negative. Did undergo a cardiac catheterization. No new lesion was found. Wound care was discussed. The patient's questions were answered. No further symptoms. PHYSICAL EXAMINATION: VITAL SIGNS: Temperature 98, pulse 85, respirations 16, blood pressure 120/80, pulse ox 99% on room air. LUNGS: Fair air entry. CARDIOVASCULAR: 1st and 2nd sounds normal. INVESTIGATION: Accu-Cheks are noted. Troponins were negative. LDL is 6. DISCHARGE MEDICATIONS: 1. Aspirin 81 mg a day. 2. Aldactone 25 mg a day. 3. Cymbalta 60 mg p.o. b.i.d. 4. Lipitor 80 mg p.o. daily. 5. Nitrostat 0.4 sublingual q.5 p.r.n. FOLLOW UP: Follow with Dr. Banuelos on 08/29/2018. Follow up with Dr. Zaid Mallory on August 27, 2018. I did suggest that nitrates may be added if these symptoms were to persist and see how the symptomatology goes. This can be further be determined by his psychiatry resident, Dr. Banuelos when he sees the patient in the office. Copy to Carlos Mallory in [place]. Copy to Dr. Banuelos. MMODL / IJN: [id number] /
== END 2018-08-23 16:40 | disposition home or self-care (01) ==
LOC: EC 13:47 → 1SOBS 15:23 → 3SCARD 08-22 01:36
PROVIDERS: ADMIT Hospitalist; ATTEND Hospitalist
DX: R07.89 Other chest pain (principal); R61 Generalized hyperhidrosis; I25.10 Atherosclerotic heart disease of native coronary artery without angina pectoris; K21.9 Gastro-esophageal reflux disease without esophagitis; E78.5 Hyperlipidemia, unspecified; I10 Essential (primary) hypertension; E78.00 Pure hypercholesterolemia, unspecified; M25.512 Pain in left shoulder; M79.602 Pain in left arm; G44.40 Drug-induced headache, not elsewhere classified, not intractable; T46.3X5A Adverse effect of coronary vasodilators, initial encounter; M06.9 Rheumatoid arthritis, unspecified; F31.9 Bipolar disorder, unspecified; G47.33 Obstructive sleep apnea (adult) (pediatric); G25.0 Essential tremor; G43.909 Migraine, unspecified, not intractable, without status migrainosus; F41.9 Anxiety disorder, unspecified; Z79.82 Long term (current) use of aspirin; Z79.899 Other long term (current) drug therapy; Z88.5 Allergy status to narcotic agent; Z88.8 Allergy status to other drugs, medicaments and biological substances; Z95.5 Presence of coronary angioplasty implant and graft; I25.2 Old myocardial infarction; Z87.442 Personal history of urinary calculi; Z86.74 Personal history of sudden cardiac arrest; Z86.718 Personal history of other venous thrombosis and embolism; Z87.891 Personal history of nicotine dependence; Z86.711 Personal history of pulmonary embolism; Z80.8 Family history of malignant neoplasm of other organs or systems; Z82.49 Family history of ischemic heart disease and other diseases of the circulatory system; Z84.1 Family history of disorders of kidney and ureter; Z83.79 Family history of other diseases of the digestive system
CPT/HCPCS: 96366 ×2; 93005 ×2; 96376; 96365; 96375; 99291; 36415; 93458; 80061; 80053; 83735; 84484 ×2; 85025; 85610; 85730 ×2; 71046; G0378 ×4; C1769; C1894; J2060; J1644 ×3; J2001; J3010; Q9967; J2250

== ENCOUNTER 2019-08-27 13:26 | Observation (INO) | payer MEDICARE ==
[2019-08-27] MEDS ORDERED: NITROGLYCERIN SL TABS 0.4 MG TAB SUBLINGUAL STA ×3 (14:13)
[2019-08-27] MEDS ORDERED: ASPIRIN 81 MG PO STA (14:13)
--- NOTE | 2019-08-27 14:17 | ED ---
General Adult HPI - General Chief complaint: Chest Pain Stated complaint: Chest pressure Time Seen by Provider: 08/27/19 13:56 Source: patient, RN notes reviewed Mode of arrival: ambulatory Limitations: no limitations - History of Present Illness Initial comments: Patient is a pleasant 48-year-old male presenting to the emergency Department with complaints of chest pressure. Onset of symptoms was a few days ago. Discomfort was mild, somewhat worse today. Discomfort is now 5/10. Discomfort feels like pressure. There is some radiation towards left arm. No nausea. Patient felt cold and clammy yesterday. There is some mild associated dyspnea. Patient did have similar symptoms years ago associated with heart attack and stent placement however those symptoms were more severe. No leg pain or leg swelling. - Related Data Home Medications Medication Instructions Recorded Confirmed DULoxetine HCL [Cymbalta] 60 mg PO BID 06/27/17 08/27/19 Atorvastatin [Lipitor] 80 mg PO DAILY 08/21/18 08/27/19 Metoprolol Tartrate [Lopressor] 25 mg PO DAILY 08/27/19 08/27/19 Previous Rx's Medication Instructions Recorded Aspirin 81 mg PO DAILY #30 chew 10/01/13 Spironolactone [Aldactone] 25 mg PO DAILY #30 tab 10/01/13 Allergies Allergy/AdvReac Type Severity Reaction Status Date / Time hydroxyzine HCl Allergy Unknown Verified 08/27/19 15:07 [From Vistaril] hydroxyzine pamoate Allergy Unknown Verified 08/27/19 15:07 [From Vistaril] meperidine HCl [From Demerol] Allergy Unknown Verified 08/27/19 15:07 Review of Systems ROS Statement: Those systems with pertinent positive or pertinent negative responses have been documented in the HPI. ROS Other: All systems not noted in ROS Statement are negative. Constitutional: Denies: fever Eyes: Denies: eye pain ENT: Denies: ear pain Respiratory: Reports: as per HPI. Denies: cough Cardiovascular: Reports: as per HPI, chest pain Endocrine: Denies: fatigue Gastrointestinal: Denies: abdominal pain Genitourinary: Denies: dysuria Musculoskeletal: Denies: back pain Skin: Denies: rash Neurological: Denies: weakness Past Medical History Past Medical History: Deep Vein Thrombosis (DVT), GERD/Reflux, Hyperlipidemia, Myocardial Infarction ([place]), Rheumatoid Arthritis ([place]), Sleep Apnea/CPAP/BIPAP Additional Past Medical History / Comment(s): See Dr Bull Chang&P, 10-01-13 Cardiac arrest positive mi, was coded / placed on vent for 2 days, kidney stones , essential tremor, hx migraines, chronic "sour stomach", no cpap used since wt loss Last Myocardial Infarction Date:: 2013 History of Any Multi-Drug Resistant Organisms: None Reported Past Surgical History: Heart Catheterization, Heart Catheterization With Stent Additional Past Surgical History / Comment(s): 2 cardiac stents, laser sx for kidney stone Past Anesthesia/Blood Transfusion Reactions: No Reported Reaction Date of Last Stent Placement:: 09/23/13 Past Psychological History: Anxiety, Bipolar, Depression Smoking Status: Former smoker Past Alcohol Use History: Daily Past Drug Use History: Marijuana - Past Family History Mother Family Medical History: Cancer Additional Family Medical History / Comment(s): skin cancer General Exam Limitations: no limitations General appearance: alert, in no apparent distress Head exam: Present: normocephalic Eye exam: Present: normal appearance, PERRL ENT exam: Present: normal oropharynx Neck exam: Present: normal inspection Respiratory exam: Present: normal lung sounds bilaterally. Absent: chest wall tenderness Cardiovascular Exam: Present: regular rate, normal rhythm Expanded Peripheral pulses: 2+: Radial (R), Radial (L), Posterior Tibialis (R), Posterior Tibialis (L), Dorsalis Pedis (R), Dorsalis Pedis (L) GI/Abdominal exam: Present: soft. Absent: tenderness Extremities exam: Present: normal inspection. Absent: pedal edema, calf tenderness Neurological exam: Present: alert Psychiatric exam: Present: normal affect, normal mood Skin exam: Present: normal color Course Vital Signs 08/27/19 08/27/19 08/27/19 13:45 14:39 14:45 Temperature 98.9 F Pulse Rate 109 H 96 107 H Respiratory 18 18 18 Rate Blood Pressure 140/91 143/96 142/105 O2 Sat by Pulse 99 97 Oximetry 08/27/19 08/27/19 14:52 15:29 Temperature Pulse Rate 105 H 106 H Respiratory 18 Rate Blood Pressure 115/91 138/91 O2 Sat by Pulse 99 Oximetry EKG Findings - EKG Comments: EKG Findings:: Normal sinus rhythm 98. [place] 142. QRS 96. QT 360. QTC 459. Left axis. LVH criteria. No acute ST change. Medical Decision Making - Medical Decision Making Patient reevaluated and resting comfortably in bed. Discomfort has improved however not completely resolved. Patient updated on results and plan. Case discussed in detail with Dr. Mckeon, covering for Dr. Martin, who will admit covering for Dr. Oconnor. - Lab Data Result diagrams: 08/27/19 14:11 08/27/19 14:11 Lab Results 08/27/19 08/27/19 08/27/19 Range/Units 14:11 14:11 14:11 WBC 7.8 (3.8-10.6) k/uL RBC 4.76 (4.30-5.90) m/uL Hgb 15.4 (13.0-17.5) gm/dL Hct 44.4 (39.0-53.0) % MCV 93.3 (80.0-100.0) fL MCH 32.5 (25.0-35.0) pg MCHC 34.8 (31.0-37.0) g/dL RDW 12.5 (11.5-15.5) % Plt Count 242 (150-450) k/uL Neutrophils % 55 % Lymphocytes % 36 % Monocytes % 4 % Eosinophils % 1 % Basophils % 1 % Neutrophils # 4.3 (1.3-7.7) k/uL Lymphocytes # 2.8 (1.0-4.8) k/uL Monocytes # 0.3 (0-1.0) k/uL Eosinophils # 0.1 (0-0.7) k/uL Basophils # 0.1 (0-0.2) k/uL PT 9.7 (9.0-12.0) sec INR 0.9 (<1.2) APTT 21.6 L (22.0-30.0) sec D-Dimer 0.30 (<0.60) mg/L FEU Sodium 138 (137-145) mmol/L Potassium 4.4 (3.5-5.1) mmol/L Chloride 105 (98-107) mmol/L Carbon Dioxide 24 (22-30) mmol/L Anion Gap 9 mmol/L BUN 23 H (9-20) mg/dL Creatinine 0.94 (0.66-1.25) mg/dL Est GFR (CKD-EPI)AfAm >90 (>60 ml/min/1.73 sqM) Est GFR (CKD-EPI)NonAf >90 (>60 ml/min/1.73 sqM) Glucose 97 (74-99) mg/dL Calcium 9.6 (8.4-10.2) mg/dL Magnesium 2.0 (1.6-2.3) mg/dL Total Bilirubin 0.7 (0.2-1.3) mg/dL AST 40 (17-59) U/L ALT 40 (4-49) U/L Alkaline Phosphatase 72 (38-126) U/L Troponin I (0.000-0.034) ng/mL Total Protein 7.5 (6.3-8.2) g/dL Albumin 4.3 (3.5-5.0) g/dL Coronavirus (PCR) (Not Detectd) 08/27/19 08/27/19 Range/Units 14:11 14:32 WBC (3.8-10.6) k/uL RBC (4.30-5.90) m/uL Hgb (13.0-17.5) gm/dL Hct (39.0-53.0) % MCV (80.0-100.0) fL MCH (25.0-35.0) pg MCHC (31.0-37.0) g/dL RDW (11.5-15.5) % Plt Count (150-450) k/uL Neutrophils % % Lymphocytes % % Monocytes % % Eosinophils % % Basophils % % Neutrophils # (1.3-7.7) k/uL Lymphocytes # (1.0-4.8) k/uL Monocytes # (0-1.0) k/uL Eosinophils # (0-0.7) k/uL Basophils # (0-0.2) k/uL PT (9.0-12.0) sec INR (<1.2) APTT (22.0-30.0) sec D-Dimer (<0.60) mg/L FEU Sodium (137-145) mmol/L Potassium (3.5-5.1) mmol/L Chloride (98-107) mmol/L Carbon Dioxide (22-30) mmol/L Anion Gap mmol/L BUN (9-20) mg/dL Creatinine (0.66-1.25) mg/dL Est GFR (CKD-EPI)AfAm (>60 ml/min/1.73 sqM) Est GFR (CKD-EPI)NonAf (>60 ml/min/1.73 sqM) Glucose (74-99) mg/dL Calcium (8.4-10.2) mg/dL Magnesium (1.6-2.3) mg/dL Total Bilirubin (0.2-1.3) mg/dL AST (17-59) U/L ALT (4-49) U/L Alkaline Phosphatase (38-126) U/L Troponin I <0.012 (0.000-0.034) ng/mL Total Protein (6.3-8.2) g/dL Albumin (3.5-5.0) g/dL Coronavirus (PCR) Not Detected (Not Detectd) - Radiology Data Radiology results: image reviewed (Chest x-ray shows no acute process) Disposition Clinical Impression: Chest pain Disposition: ADMITTED IP TO THIS HOSP Is patient prescribed a controlled substance at d/c from ED?: No Referrals: Zaid Mallory MD [Primary Care Provider] - 1-2 days Decision Time: 15:34
--- NOTE | 2019-08-27 14:27 | XR ---
EXAMINATION TYPE: XR chest 2V DATE OF EXAM: 08/27/2019 COMPARISON: Chest x-ray 5 days ago. HISTORY: Chest pain. History of heart attack 6 years ago. TECHNIQUE: Frontal and lateral views of the chest are obtained. FINDINGS: There is chronic parenchymal change without suspicious narrowing focal air space opacity, pleural effusion, or pneumothorax seen. The cardiac silhouette size remains within normal limits. The osseous structures are intact. IMPRESSION: Chronic changes without acute process.
[2019-08-27 14:38] LABS: Basophils # (A) 0.1 k/uL (0-0.2); Basophils % (A) 1 %; Eosinophils # (A) 0.1 k/uL (0-0.7); Eosinophils % (A) 1 %; HCT 44.4 % (39.0-53.0); HGB 15.4 gm/dL (13.0-17.5); Lymphocytes # (A) 2.8 k/uL (1.0-4.8); Lymphocytes % (A) 36 %; MCH 32.5 pg (25.0-35.0); MCHC 34.8 g/dL (31.0-37.0); MCV 93.3 fL (80.0-100.0); Mean Platelet Volume 7.7; Monocytes # (A) 0.3 k/uL (0-1.0); Monocytes % (A) 4 %; Neutrophils # (A) 4.3 k/uL (1.3-7.7); Neutrophils % (A) 55 %; Platelet Count 242 k/uL (150-450); RBC 4.76 m/uL (4.30-5.90); RDW 12.5 % (11.5-15.5); WBC 7.8 k/uL (3.8-10.6)
[2019-08-27 14:47] LABS: ALT 40 U/L (4-49); AST 40 U/L (17-59); African American GFR (CKD) >90 (>60 ml/min/1.73 sqM); Albumin 4.3 g/dL (3.5-5.0); Alkaline Phosphatase 72 U/L (38-126); Anion Gap 9 mmol/L; Blood Urea Nitrogen 23 mg/dL (9-20); Calcium 9.6 mg/dL (8.4-10.2); Carbon Dioxide 24 mmol/L (22-30); Chloride 105 mmol/L (98-107); Glucose 97 mg/dL (74-99); Non-African American GFR(CKD) >90 (>60 ml/min/1.73 sqM); Potassium 4.4 mmol/L (3.5-5.1); Sodium 138 mmol/L (137-145); Total Bilirubin 0.7 mg/dL (0.2-1.3); Total Protein 7.5 g/dL (6.3-8.2)
[2019-08-27] MEDS ORDERED: METOPROLOL TARTRATE 25 MG TAB PO STA ×2 (14:51→16:38)
[2019-08-27 14:59] LABS: D-Dimer 0.3 mg/L FEU (<0.60); INR 0.9 (<1.2); Prothrombin Time 9.7 sec (9.0-12.0)
[2019-08-27 15:03] LABS: Partial Thromboplastin Time 21.6 sec (22.0-30.0)
[2019-08-27] MEDS ORDERED: LORazepam 1 MG TAB PO STA (15:34)
[2019-08-27] MEDS ORDERED: NITROGLYCERIN SL TABS 0.4 MG TAB SUBLINGUAL PRN (15:35)
[2019-08-27] MEDS ORDERED: ACETAMINOPHEN TAB 325 MG TAB PO PRN (18:28)
[2019-08-27] MEDS ORDERED: NALOXONE 0.4 MG/ML 1 ML VIAL IV PRN (18:28)
--- NOTE | 2019-08-27 18:31 | P.HPIM ---
History of Present Illness H&P Date: 08/27/19 Chief Complaint: Chest pain 48-year-old male with PMH of CAD with stent placement and history of cardiac arrest in 2013, rheumatoid arthritis, sleep apnea, history of DVT presents the ED for chest pain. Patient reports chest pressure as he was relaxing 2 days ago. He describes the sensation as "something sitting on my chest". Pain was rated 5 out of 10 in severity. He also experienced tingling in the left upper extremity. His symptoms were associated with shortness of breath and lightheadedness. He describes symptoms similar to his myocardial infarction in 2014. His symptoms worsened until today which prompted him to come to the ED. Patient currently complains of a headache due to the nitroglycerin and he received. He complains of some nausea but no vomiting. He does report some cold sweats over the last couple days. Denies any lower extremity edema, fever or chills, cough, changes in urination or bowel habits. No changes in appetite or weight. In the ED, his vital signs were stable except for pulse of 109. CBC was unremarkable. D-dimer was negative. INR was normal. CMP showed BUN of 23. Troponin was less than 0.012, EKG showing sinus tachycardia with LVH. Coronavirus testing was negative. Chest x-ray showed chronic changes. Patient is admitted for chest pain, rule out acute coronary syndrome with cardiology consultation. Review of Systems Pertinent positives and negatives as discussed in HPI, a complete review of systems was performed and all other systems are negative. Past Medical History Past Medical History: Deep Vein Thrombosis (DVT), GERD/Reflux, Hyperlipidemia, Myocardial Infarction ([place]), Rheumatoid Arthritis (RA), Sleep Apnea/CPAP/BIPAP Additional Past Medical History / Comment(s): See Dr Gottlieb H&P, 10-01-13 Cardiac arrest positive mi, was coded / placed on vent for 2 days, kidney stones , essential tremor, hx migraines, chronic "sour stomach", no cpap used since wt loss Last Myocardial Infarction Date:: 2013 History of Any Multi-Drug Resistant Organisms: None Reported Past Surgical History: Heart Catheterization, Heart Catheterization With Stent Additional Past Surgical History / Comment(s): 2 cardiac stents, laser sx for kidney stone Past Anesthesia/Blood Transfusion Reactions: No Reported Reaction Date of Last Stent Placement:: 09/23/13 Past Psychological History: Anxiety, Bipolar, Depression Smoking Status: Former smoker Past Alcohol Use History: Daily Past Drug Use History: Marijuana - Past Family History Mother Family Medical History: Cancer Additional Family Medical History / Comment(s): skin cancer Medications and Allergies Home Medications Medication Instructions Recorded Confirmed Type Aspirin 81 mg PO DAILY #30 chew 10/01/13 08/27/19 Rx Spironolactone [Aldactone] 25 mg PO DAILY #30 tab 10/01/13 08/27/19 Rx DULoxetine HCL [Cymbalta] 60 mg PO BID 06/27/17 08/27/19 History Atorvastatin [Lipitor] 80 mg PO DAILY 08/21/18 08/27/19 History Metoprolol Tartrate [Lopressor] 25 mg PO DAILY 08/27/19 08/27/19 History Allergies Allergy/AdvReac Type Severity Reaction Status Date / Time hydroxyzine HCl Allergy Unknown Verified 08/27/19 15:07 [From Vistaril] hydroxyzine pamoate Allergy Unknown Verified 08/27/19 15:07 [From Vistaril] meperidine HCl [From Demerol] Allergy Unknown Verified 08/27/19 15:07 Physical Exam Vitals: Vital Signs Temp Pulse Resp BP Pulse Ox 08/27/19 17:32 76 16 146/93 99 08/27/19 16:10 94 18 151/96 99 08/27/19 15:29 106 H 18 138/91 99 08/27/19 14:52 105 H 115/91 08/27/19 14:45 107 H 18 142/105 97 08/27/19 14:39 96 18 143/96 08/27/19 13:45 98.9 F 109 H 18 140/91 99 Intake and Output 08/27/19 08/27/19 08/27/19 06:59 14:59 22:59 Other: Weight 90.718 kg General: [non toxic], [no distress], [appears at stated age] Derm: [warm], [dry] Head: [atraumatic], [normocephalic], [symmetric] Eyes: [EOMI], [no lid lag], [anicteric sclera] Mouth: [no lip lesion], [mucus membranes moist] Cardiovascular: [S1S2 reg], [no murmur], [positive posterior tibial pulse bilateral], Lungs: [CTA bilateral], [no rhonchi, no rales] , [no accessory muscle use] Abdominal: [soft], [ nontender to palpation], [no guarding], [no appreciable o rganomegaly] Ext: [no gross muscle atrophy], [no edema], [no contractures] Neuro: [ CN II-XI grossly intact], [no focal neuro deficits] Psych: [Alert], [oriented], [appropriate affect] Results CBC & Chem 7: 08/27/19 14:11 08/27/19 14:11 Labs: Abnormal Lab Results - Last 24 Hours (Table) 08/27/19 08/27/19 Range/Units 14:11 14:11 APTT 21.6 L (22.0-30.0) sec BUN 23 H (9-20) mg/dL Assessment and Plan Assessment: Chest pain with history of CAD Dyslipidemia Sleep apnea History DVT Troponin was less than 0.0121 with EKG showing sinus tachycardia and LVH. D- dimer is negative. Chest x-ray shows chronic findings. Cardiac catheterization in August 2018 showed patent coronaries and stent was placed in the LAD in 2013. Echocardiogram in June 2017 shows EF 55-60%. Plans: Trend troponin/EKG to rule out ACS. Continue aspirin and Lipitor. Continue metoprolol. Telemetry monitoring. Follow-up echocardiogram. Follow-up cardiology consultation. Plans: Continue Lipitor. Plans: CPAP at that time. Patient is completing therapy for DVT that was diagnosed in 2013. DVT prophylaxis: [Heparin] Discussed with: [Patient] Anticipated discharge: [1-2 days] Anticipated discharge place: [Home] A total of [35] minutes was spent on the care of this complex patient more than 50% of the time was spent in counseling and care coordination. Patient names his Aj decision-maker if he can't make decisions for himself. Patient elected to be full code.
[2019-08-27] MEDS: NITROGLYCERIN OINT 1 INCH/GM PACKET TOPICAL SCH (20:15)
[2019-08-27] MEDS: DULoxetine HCL 60 MG CAPSULE.DR PO SCH (20:15)
[2019-08-27] MEDS: HEPARIN SODIUM,PORCINE 5,000 UNIT/ML 1 ML VIAL SQ SCH (20:15)
[2019-08-27 22:13] VITALS: RESP 18
[2019-08-28] MEDS: NITROGLYCERIN OINT 1 INCH/GM PACKET TOPICAL SCH ×2 (00:20→06:17)
[2019-08-28 03:01] LABS: Cholesterol 177 mg/dL (<200); HDL Cholesterol 73 mg/dL (40-60); LDL Cholesterol,Calculated 60 mg/dL (0-99); Triglycerides 220 mg/dL (<150)
[2019-08-28 08:03] VITALS: TEMP 97.6
[2019-08-28] MEDS ORDERED: SPIRONOLACTONE 25 MG TAB PO SCH (09:00)
[2019-08-28] MEDS ORDERED: ASPIRIN 81 MG PO SCH (09:00)
[2019-08-28] MEDS ORDERED: ASPIRIN 325 MG TAB PO SCH (09:00)
[2019-08-28] MEDS ORDERED: METOPROLOL TARTRATE 25 MG TAB PO SCH (09:00)
[2019-08-28] MEDS ORDERED: ATORVASTATIN 80 MG TAB PO SCH (09:00)
--- NOTE | 2019-08-28 11:11 | ECHOF ---
Referral Reason:CP MEASUREMENTS -------- HEIGHT: 180.3 cm WEIGHT: 94.3 kg BP: 106/65 RVIDd: 2.9 cm (< 3.3) IVSd: 1.3 cm (0.6 - 1.1) LVIDd: 3.7 cm (3.9 - 5.3) LVPWd: 1.1 cm (0.6 - 1.1) IVSs: 1.5 cm LVIDs: 3.7 cm LVPWs: 1.6 cm LA Diam: 3.2 cm (2.7 - 3.8) Ao Diam: 3.2 cm (2.0 - 3.7) AV Cusp: 1.9 cm (1.5 - 2.6) MV EXCURSION: 15.228 mm (> 18.000) MV EF SLOPE: 63 mm/s (70 - 150) EPSS: 1.2 cm MV E Moustapha: 0.46 m/s MV DecT: 229 ms MV A Moustapha: 0.74 m/s MV E/A Ratio: 0.62 FINDINGS -------- Sinus rhythm. This was a technically adequate study. The left ventricular size is normal. There is mild concentric left ventricular hypertrophy. Overa ll left ventricular systolic function is normal with, an EF between 60 - 65 %. The right ventricle is normal in size. Aneurysmal Interatrial septum. The aortic valve is trileaflet and appears structurally normal. The mitral valve is normal. The tricuspid valve appears structurally normal. There is no pulmonic regurgitation present. The aortic root size is normal. Normal inferior vena cava with normal inspiratory collapse consistent with estimated right atrial pre ssure of 5 mmHg. There is no pericardial effusion. CONCLUSIONS -------- 1. Sinus rhythm. 2. This was a technically adequate study. 3. The left ventricular size is normal. 4. There is mild concentric left ventricular hypertrophy. 5. Overall left ventricular systolic function is normal with, an EF between 60 - 65 %. 6. The right ventricle is normal in size. 7. Aneurysmal Interatrial septum. 8. The aortic valve is trileaflet and appears structurally normal. 9. The mitral valve is normal. 10. The tricuspid valve appears structurally normal. 11. There is no pulmonic regurgitation present. 12. The aortic root size is normal. 13. Normal inferior vena cava with normal inspiratory collapse consistent with estimated right atrial pressure of 5 mmHg. 14. There is no pericardial effusion. PATIENT ACCESS DIRECTOR: Sanjuana Amador RDCS
--- NOTE | 2019-08-28 11:39 | CONS ---
CONSULTATION Mr. Burden is a 48-year-old male who is followed by Dr. Banuelos and Dr. Mallory, has a known history of coronary artery disease, presented 2013 with an acute myocardial infarction with totally occluded LAD and underwent stenting of his LAD. At that time, he had severe cardiomyopathy that subsequently improved. He underwent repeat cardiac catheterization in August of 2018 that revealed no evidence of significant restenosis. He presents at this time with symptoms of chest discomfort going on for the last 5 days. The discomfort is not exertional in pattern and at time lasting a few minutes. Not associated with significant dyspnea on exertion. He has no palpitation. No dizziness. No syncope. No PND, orthopnea, or peripheral edema. His coronary risk factors are remarkable for the factor of smoking that he stopped at the time of his myocardial infarction. He has hypertension, hyperlipidemia. He is nondiabetic. MEDICATIONS: Include aspirin once a day, Aldactone 25 mg daily, Cymbalta, Lipitor 80 mg daily, metoprolol tartrate 25 mg a day. REVIEW OF SYSTEMS: RESPIRATORY SYSTEM: He has no recent wheezing or cough. No history of obstructive lung disease. GI SYSTEM: No recent GI bleeding. No peptic ulcer disease. SYSTEM: No dysuria or hematuria. NERVOUS SYSTEM: No stroke or seizure. PHYSICAL EXAMINATION: A 48-year-old male, alert, oriented, in no apparent distress. Blood pressure 116/70 with a heart rate in the 70s. HEAD: Normocephalic. EYES: Sclerae nonicteric. NECK: Good upstroke, no bruit, no venous distention. LUNGS: Clear to auscultation. HEART: Regular rate and rhythm, S1, S2. No S3. No rub. ABDOMEN: Soft, nontender, positive bowel sounds, no organomegaly. EXTREMITIES: No edema, intact pulses. LAB DATA: Revealed troponin less than 0.012 for 3 samples, cholesterol 177, LDL of 60. BUN and creatinine 23 and 0.94. Hemoglobin of 15.4. EKG revealed a sinus mechanism, normal axis and intervals with voltage criteria for left ventricular hypertrophy. Chest x-ray shows no evidence of acute infiltrate. IMPRESSION: 1. Chest discomfort of unclear etiology. No evidence of acute coronary artery syndrome in a patient with known history of coronary artery disease. A year ago, his cardiac catheterization revealed no evidence of high-grade stenosis. 2. Prior history of cardiomyopathy that resolved. 3. Hypertension. 4. Hyperlipidemia. RECOMMENDATION: I recommend proceeding with a stress echocardiogram to further evaluate his status and guide his treatment and depending on the results of testing, further recommendation will be made. Thank you for this consult. Will follow with you. FERMIN / JOSE: [id number] /
--- NOTE | 2019-08-28 12:33 | ECHOS ---
STRESS ECHOCARDIOGRAM INDICATIONS: Chest pain. MEDICATIONS: Cymbalta, Aldactone, metoprolol, Lipitor, aspirin. BASELINE HEART RATE: 82 BASELINE BLOOD PRESSURE: 117/64 MAXIMUM HEART RATE: 147 MAXIMUM BLOOD PRESSURE: 143/79 85% MPHR: 145 100% MPHR: 170 METS: 8.3 MAXIMUM STAGE REACHED: 3 TOTAL EXERCISE TIME: 7:00 CLINICAL INFORMATION: Baseline EKG show sinus rhythm, normal axis, normal intervals. Patient exercised on Doron protocol for a total of 7 minutes achieving 8 METS, 86% of predicted maximal heart rate without chest pain or diagnostic ST-segment depression. Baseline echo shows normal left ventricular size, wall motion and systolic function. Postexercise there is normal hyperdynamic for all segments of myocardium noted. CONCLUSION: 1. Average exercise tolerance. 2. Negative stress test by EKG criteria. 3. Negative stress echo. MMELVI / LEXYN: [id number] /
[2019-08-28 13:04] VITALS: BP 122/77; PULSE 89
[2019-08-28] MEDS: DULoxetine HCL 60 MG CAPSULE.DR PO SCH (13:16)
[2019-08-28] MEDS: HEPARIN SODIUM,PORCINE 5,000 UNIT/ML 1 ML VIAL SQ SCH (13:17)
--- NOTE | 2019-08-28 13:52 | P.DS ---
Providers Date of admission: 08/27/19 15:35 Expected date of discharge: 08/28/19 Attending physician: Nancy Nguyen MD Consults: 08/27/19 15:35 Consult Physician Urgent Consulting Provider: José Banuelos Consult Reason/Comments: cp Do you want consulting provider notified?: Yes Primary care physician: [facility] Nad[facility] [place] Hospital Course: 48-year-old male with PMH of CAD with stent placement and history of cardiac arrest in 2013, rheumatoid arthritis, sleep apnea, history of DVT presents the ED for chest pain. Patient reports chest pressure as he was relaxing 2 days ago. He describes the sensation as "something sitting on my chest". Pain was rated 5 out of 10 in severity. He also experienced tingling in the left upper extremity. His symptoms were associated with shortness of breath and lightheadedness. He describes symptoms similar to his myocardial infarction in 2014. His symptoms worsened until today which prompted him to come to the ED. Patient currently complains of a headache due to the nitroglycerin and he received. He complains of some nausea but no vomiting. He does report some cold sweats over the last couple days. Denies any lower extremity edema, fever or chills, cough, changes in urination or bowel habits. No changes in appetite or weight. In the ED, his vital signs were stable except for pulse of 109. CBC was unremarkable. D-dimer was negative. INR was normal. CMP showed BUN of 23. Troponin was less than 0.012, EKG showing sinus tachycardia with LVH. Coronavirus testing was negative. Chest x-ray showed chronic changes. Patient is admitted for chest pain, rule out acute coronary syndrome with cardiology consultation. Troponins were less than 0.0123 and ACS was ruled out. Cardiac catheterization in August 2018 showed patent coronaries and stent that was placed in the LAD in 2013. Stress echocardiogram was performed which was negative. Patient was continued on aspirin, Lipitor and metoprolol. Echocardiogram was done which showed EF 60-65% with mild concentric LVH. Patient was seen and examined. No acute events overnight. Patient reports significant improvement in his symptoms. He denies any chest pain, shortness of breath or palpitations. No nausea or vomiting. No fever or chills. General: [non toxic], [no distress], [appears at stated age] Derm: [warm], [dry] Head: [atraumatic], [normocephalic], [symmetric] Eyes: [EOMI], [no lid lag], [anicteric sclera] Mouth: [no lip lesion], [mucus membranes moist] Cardiovascular: [S1S2 reg], [no murmur], [positive posterior tibial pulse bilateral], Lungs: [CTA bilateral], [no rhonchi, no rales] , [no accessory muscle use] Abdominal: [soft], [ nontender to palpation], [no guarding], [no appreciable organomegaly] Ext: [no gross muscle atrophy], [no edema], [no contractures] Neuro: [no focal neuro deficits] Psych: [Alert], [oriented], [appropriate affect] Chest pain with history of CAD Dyslipidemia Sleep apnea History DVT Troponin was less than 0.0123 with EKG showing sinus tachycardia and LVH. Stress echo negative. Echocardiogram shows EF 60-65% with mild concentric LVH. D-dimer is negative. Chest x-ray shows chronic findings. Cardiac catheterization in August 2018 showed patent coronaries and stent was placed in the LAD in 2013. Echocardiogram in June 2017 shows EF 55-60%. Plans: ACS ruled out. Continue aspirin and Lipitor. Continue metoprolol. Telemetry monitoring. Follow-up cardiology consultation. Plans: Continue Lipitor. Plans: CPAP at that time. Patient is completing therapy for DVT that was diagnosed in 2013. [As per cardiology, patient cleared for discharge. DC today.] Pertinent Studies: Chest x-ray, echocardiogram, stress test Patient Condition at Discharge: Stable Plan - Discharge Summary Discharge Rx Participant: Yes New Discharge Prescriptions: Continue Aspirin 81 mg PO DAILY #30 chew Spironolactone [Aldactone] 25 mg PO DAILY #30 tab DULoxetine HCL [Cymbalta] 60 mg PO BID Atorvastatin [Lipitor] 80 mg PO DAILY Metoprolol Tartrate [Lopressor] 25 mg PO DAILY Discharge Medication List Aspirin 81 mg PO DAILY #30 chew 10/01/13 [Rx] Spironolactone [Aldactone] 25 mg PO DAILY #30 tab 10/01/13 [Rx] DULoxetine HCL [Cymbalta] 60 mg PO BID 06/27/17 [History] Atorvastatin [Lipitor] 80 mg PO DAILY 08/21/18 [History] Metoprolol Tartrate [Lopressor] 25 mg PO DAILY 08/27/19 [History] Follow up Appointment(s)/Referral(s): José Banuelos MD [STAFF PHYSICIAN] - 09/02/19 (Dr. Banuelos will call you on Sunday, no set time so please have phone on you at all times if this is a cell phone. Please check your blood pressures at least twice daily while at home and keep a record to let Dr. Banuelos know at the time of the telephone appointment. Thank you.) Zaid Mallory MD [Primary Care Provider] - 1-2 days (Please follow up with your primary physician after your telephone appointment with Dr. Banuelos to update about any medication changes. ) Patient Instructions/Handouts: Heart Healthy Diet (DC), Hypertension (DC), Stress Echocardiogram (DC) Activity/Diet/Wound Care/Special Instructions: Diet: Cardiac Follow-up PCP within 3 days of discharge. Follow-up with cardiology within 1 week of discharge. Take all medications as advised. Come back to the ED or call 911 for worsening chest pain, shortness of breath, palpitations or dizz iness. Discharge Disposition: HOME SELF-CARE
== END 2019-08-28 14:29 | disposition home or self-care (01) ==
LOC: EC 13:26 → 3SCARD 15:35
PROVIDERS: ADMIT Family Medicine; ATTEND Family Medicine
DX: R07.89 Other chest pain (principal); R06.02 Shortness of breath; R20.2 Paresthesia of skin; R42 Dizziness and giddiness; R11.0 Nausea; R00.0 Tachycardia, unspecified; G44.40 Drug-induced headache, not elsewhere classified, not intractable; T46.3X5A Adverse effect of coronary vasodilators, initial encounter; I10 Essential (primary) hypertension; M06.9 Rheumatoid arthritis, unspecified; E78.5 Hyperlipidemia, unspecified; K21.9 Gastro-esophageal reflux disease without esophagitis; G25.0 Essential tremor; G43.909 Migraine, unspecified, not intractable, without status migrainosus; F31.9 Bipolar disorder, unspecified; F41.9 Anxiety disorder, unspecified; I25.10 Atherosclerotic heart disease of native coronary artery without angina pectoris; G47.30 Sleep apnea, unspecified; Z79.82 Long term (current) use of aspirin; Z79.899 Other long term (current) drug therapy; Z88.5 Allergy status to narcotic agent; Z88.8 Allergy status to other drugs, medicaments and biological substances; I25.2 Old myocardial infarction; Z95.5 Presence of coronary angioplasty implant and graft; Z86.718 Personal history of other venous thrombosis and embolism; Z87.442 Personal history of urinary calculi; Z86.74 Personal history of sudden cardiac arrest; Z87.891 Personal history of nicotine dependence; Z99.89 Dependence on other enabling machines and devices; Z80.8 Family history of malignant neoplasm of other organs or systems; Z20.828 Contact with and (suspected) exposure to other viral communicable diseases
CPT/HCPCS: 96372; 93005 ×2; 99285; 36415; 93351; 85379; 80061; 80053; 83735; 84484 ×2; 85025; 85610; 85730; 87635; 71046; G0378 ×2; J1644; 93306

== ENCOUNTER 2019-10-08 10:24 | Emergency (ER) | payer MEDICARE ==
[2019-10-08 10:35] VITALS: BP 139/92; PULSE 98; TEMP 98.5
[2019-10-08] MEDS ORDERED: LIDOCAINE 5% PATCH TOPICAL SCH (10:45)
[2019-10-08] MEDS ORDERED: ACET/COD 300 MG/30 MG STARTER PACK 6 TAB BTL PO STA (10:46)
--- NOTE | 2019-10-08 10:47 | ED ---
Upper Extremity HPI - General Chief Complaint: Extremity Injury, Upper Stated Complaint: shoulder injury Time Seen by Provider: 10/08/19 10:35 Source: patient Mode of arrival: ambulatory Limitations: no limitations - History of Present Illness Initial Comments: 49-year-old male presenting today for chief complaint of left shoulder strain after lifting a heavy box x 3 days ago. Patient states approximately 3 days ago he attempts to lift a 50 pound box and the ground when he felt a sharp pain in his left shoulder. He states that he has experienced this pain in the past after lifting. He states the shoulder feels stiff, he has sharp pain when he moves the shoulder, Denies numbness, tingling or weakness. Denies chest pain or SOB. Denies neck or thoracic back pain. Patient denies fevers, swelling of the joint or general malaise. Patient states that he was seen by PCP but the medications dont seem to be working. Remaining ROS (-). - Related Data Home Medications Medication Instructions Recorded Confirmed DULoxetine HCL [Cymbalta] 60 mg PO BID 06/27/17 08/27/19 Atorvastatin [Lipitor] 80 mg PO DAILY 08/21/18 08/27/19 Metoprolol Tartrate [Lopressor] 25 mg PO DAILY 08/27/19 08/27/19 Previous Rx's Medication Instructions Recorded Aspirin 81 mg PO DAILY #30 chew 10/01/13 Spironolactone [Aldactone] 25 mg PO DAILY #30 tab 10/01/13 Allergies Allergy/AdvReac Type Severity Reaction Status Date / Time hydroxyzine HCl Allergy Unknown Verified 10/08/19 10:35 [From Vistaril] hydroxyzine pamoate Allergy Unknown Verified 10/08/19 10:35 [From Vistaril] meperidine HCl [From Demerol] Allergy Unknown Verified 10/08/19 10:35 Review of Systems ROS Statement: Those systems with pertinent positive or pertinent negative responses have been documented in the HPI. ROS Other: All systems not noted in ROS Statement are negative. Past Medical History Past Medical History: Deep Vein Thrombosis (DVT), GERD/Reflux, Hyperlipidemia, Myocardial Infarction ([place]), Rheumatoid Arthritis (RA), Sleep Apnea/CPAP/BIPAP Additional Past Medical History / Comment(s): See Dr Gottlieb H&P, 10-01-13 Cardiac arrest positive mi, was coded / placed on vent for 2 days, kidney stones , essential tremor, hx migraines, chronic "sour stomach", no cpap used since wt loss Last Myocardial Infarction Date:: 2013 History of Any Multi-Drug Resistant Organisms: None Reported Past Surgical History: Heart Catheterization, Heart Catheterization With Stent Additional Past Surgical History / Comment(s): 2 cardiac stents, laser sx for kidney stone Past Anesthesia/Blood Transfusion Reactions: No Reported Reaction Date of Last Stent Placement:: 09/23/13 Past Psychological History: Anxiety, Bipolar, Depression Smoking Status: Former smoker Past Alcohol Use History: Daily Past Drug Use History: Marijuana - Past Family History Mother Family Medical History: Cancer Additional Family Medical History / Comment(s): skin cancer General Exam - General Exam Comments Initial Comments: General: The patient is awake and alert, in no distress, and does not appear acutely ill. Eye: Pupils are equal, round and reactive to light, extra-ocular movements are intact. No nystagmus. There is normal conjunctiva bilaterally. No signs of icterus. Ears, nose, mouth and throat: There are moist mucous membranes and no oral lesions. Neck: The neck is supple, there is no tenderness or JVD. No midline cervical tenderness. Cardiovascular: There is a regular rate and rhythm. No murmur, rub or gallop is appreciated. Respiratory: Lungs are clear to auscultation, respirations are non-labored, laurel ath sounds are equal. No wheezes, stridor, rales, or rhonchi. Musculoskeletal: Normal inspection patient jumps when the posterior aspect of shoulder stretching superior/lateral apsect of the left shoulder. Grimacing with ROM of the left shoulder but normal ROM of the shoulders b/l, no tenderness of the right. Strength 5/5. Sensation intact proximal and distal to site co mplaint. Radial pulses equal bilaterally 2+. ok, thumbs up fingers crossed motions intact, no wrist drop. Neurological: A&O x 3. CN II-XII intact, There are no obvious motor or sensory deficits. Coordination appears grossly intact. Speech is normal. Skin: Skin is warm and dry and no rashes or lesions are noted. Psychiatric: Cooperative, appropriate mood & affect, normal judgment. Limitations: no limitations Course Vital Signs 10/08/19 10/08/19 10:28 10:56 Temperature 98.5 F Pulse Rate 98 Respiratory 18 20 Rate Blood Pressure 139/92 O2 Sat by Pulse 98 Oximetry Medical Decision Making - Medical Decision Making 49-year-old male presenting for left shoulder pain. Patient states occurred after attempting to lift a 50 pound box. Patient to palpation pain with range of motion. Neurovascularly intact. No cervical tenderness. Refused XR, states he has had one. Patient has no additional complaints, denies additional concerns stating he knows this is a strain an presented for symptomatic treatment. Patient was discharged with orthopedic follow-up and symptomatic instruction/care. Dr. Dunn agreeable to care plan and discharge. Disposition Clinical Impression: Left shoulder strain Disposition: HOME SELF-CARE Condition: Good Instructions (If sedation given, give patient instructions): Shoulder Pain (ED) Additional Instructions: Please use medication as discussed. Please follow-up with orthopedic surgery in the next 2-3 days. Please return to emergency room if the symptoms increase or worsen or for any other concerns. Is patient prescribed a controlled substance at d/c from ED?: No Referrals: Zaid Mallory MD [Primary Care Provider] - 1-2 days Frandy Box MD [STAFF PHYSICIAN] - 1-2 days Time of Disposition: 10:47
[2019-10-08 11:11] VITALS: RESP 20
== END 2019-10-08 10:58 | disposition home or self-care (01) ==
LOC: EC 10:24
DX: S46.912A Strain of unspecified muscle, fascia and tendon at shoulder and upper arm level, left arm, initial encounter (principal); F41.9 Anxiety disorder, unspecified; F31.9 Bipolar disorder, unspecified; E78.5 Hyperlipidemia, unspecified; M06.9 Rheumatoid arthritis, unspecified; I25.2 Old myocardial infarction; Z88.5 Allergy status to narcotic agent; Z87.891 Personal history of nicotine dependence; Z88.8 Allergy status to other drugs, medicaments and biological substances; Z79.899 Other long term (current) drug therapy; Z95.5 Presence of coronary angioplasty implant and graft; X50.0XXA Overexertion from strenuous movement or load, initial encounter; Y93.89 Activity, other specified
CPT/HCPCS: 99283

== ENCOUNTER 2022-10-28 20:55 | Inpatient (IN) | payer MEDICARE ==
[2022-10-28 21:45] LABS: Basophils % (A) 1 %; Eosinophils # (A) 0.2 k/uL (0-0.7); Eosinophils % (A) 3 %; HCT 48.4 % (39.0-53.0); HGB 16.7 gm/dL (13.0-17.5); Lymphocytes # (A) 2.1 k/uL (1.0-4.8); Lymphocytes % (A) 34 %; MCH 36.1 pg (25.0-35.0); MCHC 34.4 g/dL (31.0-37.0); MCV 104.8 fL (80.0-100.0); Macrocytosis Slight; Mean Platelet Volume 8.5; Monocytes # (A) 0.4 k/uL (0-1.0); Monocytes % (A) 7 %; Neutrophils # (A) 3.2 k/uL (1.3-7.7); Neutrophils % (A) 53 %; Platelet Count 157 k/uL (150-450); RBC 4.62 m/uL (4.30-5.90); RDW 13.6 % (11.5-15.5); WBC 6.1 k/uL (3.8-10.6)
[2022-10-28 21:56] LABS: ALT 71 U/L (4-49); AST 89 U/L (17-59); African American GFR (CKD) >90 (>60 ml/min/1.73 sqM); Albumin 3.4 g/dL (3.5-5.0); Alkaline Phosphatase 78 U/L (38-126); Anion Gap 11 mmol/L; Blood Urea Nitrogen 15 mg/dL (9-20); Carbon Dioxide 20 mmol/L (22-30); Chloride 105 mmol/L (98-107); Glucose 88 mg/dL (74-99); Magnesium 1.7 mg/dL (1.6-2.3); Non-African American GFR(CKD) >90 (>60 ml/min/1.73 sqM); Potassium 3.5 mmol/L (3.5-5.1); Sodium 136 mmol/L (137-145); Total Bilirubin 0.9 mg/dL (0.2-1.3); Total Protein 6.8 g/dL (6.3-8.2)
[2022-10-28 21:58] LABS: Partial Thromboplastin Time 23.5 sec (22.0-30.0); Prothrombin Time 10.7 sec (9.0-12.0)
--- NOTE | 2022-10-28 22:23 | XR ---
EXAMINATION TYPE: XR chest 2V DATE OF EXAM: 10/28/2022 COMPARISON: 08/27/2019 INDICATION: Chest pain TECHNIQUE: Frontal and lateral views of the chest are obtained. FINDINGS: The heart size is normal. The pulmonary vasculature is normal. The lungs are clear. IMPRESSION: 1. No acute pulmonary process.
[2022-10-28] MEDS ORDERED: MORPHINE SULFATE 4 MG/ML SYRINGE IVP STA (22:53)
[2022-10-28] MEDS ORDERED: NALOXONE 0.4 MG/ML 1 ML VIAL IV PRN (23:18)
--- NOTE | 2022-10-28 23:23 | ED ---
General Adult HPI - General Chief complaint: Chest Pain Stated complaint: Chest Pain Time Seen by Provider: 10/28/22 21:24 Source: patient Mode of arrival: ambulatory Limitations: no limitations - History of Present Illness Initial comments: This is a 52-year-old male with an extensive cardiac history including previous cardiac arrest and cardiac stenting in 2013 as well as hypertension presents emergency department for left sided chest pain that began at 12 PM. The patient stated this chest pain is been persistent throughout the day with left-sided chest pain, left arm and left jaw pain. The patient did state that he was intimately diaphoretic. The patient denied any nausea or vomiting however. The patient stated that due to his previous cardiac history he wanted to make sure breathing was okay. The patient denied any other acute pain or complaints at this time. - Related Data Home Medications Medication Instructions Recorded Confirmed DULoxetine HCL [Cymbalta] 60 mg PO BID 06/27/17 10/28/22 Atorvastatin [Lipitor] 80 mg PO DAILY 08/21/18 10/28/22 Nitroglycerin Sl Tabs [Nitrostat] 0.4 mg SUBLINGUAL Q5M PRN 10/28/22 10/28/22 Sildenafil Citrate 50 mg PO DAILY PRN 10/28/22 10/28/22 carvediloL [Coreg] 3.125 mg PO BID 10/28/22 10/28/22 Previous Rx's Medication Instructions Recorded Aspirin 81 mg PO DAILY #30 chew 10/01/13 Spironolactone [Aldactone] 25 mg PO DAILY #30 tab 10/01/13 Allergies Allergy/AdvReac Type Severity Reaction Status Date / Time hydroxyzine HCl Allergy Unknown Verified 10/28/22 22:56 [From Vistaril] hydroxyzine pamoate Allergy Unknown Verified 10/28/22 22:56 [From Vistaril] meperidine HCl [From Demerol] Allergy Unknown Verified 10/28/22 22:56 Review of Systems ROS Statement: Those systems with pertinent positive or pertinent negative responses have been documented in the HPI. ROS Other: All systems not noted in ROS Statement are negative. Past Medical History Past Medical History: Chest Pain / Angina, Heart Failure, Deep Vein Thrombosis (DVT), GERD/Reflux, Hyperlipidemia, Myocardial Infarction ([place]), Rheumatoid Arthritis ([place]), Sleep Apnea/CPAP/BIPAP Additional Past Medical History / Comment(s): See Dr Bull Chang&Any, 10-01-13 Cardiac arrest positive mi, was coded / placed on vent for 2 days, kidney stones , essential tremor, hx migraines, chronic "sour stomach", no cpap used since wt loss Last Myocardial Infarction Date:: 2013 History of Any Multi-Drug Resistant Organisms: None Reported Past Surgical History: Heart Catheterization, Heart Catheterization With Stent Additional Past Surgical History / Comment(s): 2 cardiac stents, laser sx for kidney stone Past Anesthesia/Blood Transfusion Reactions: No Reported Reaction Date of Last Stent Placement:: 09/23/13 Past Psychological History: Anxiety, Bipolar, Depression Smoking Status: Former smoker Past Alcohol Use History: Daily Past Drug Use History: Marijuana - Past Family History Mother Family Medical History: Cancer Additional Family Medical History / Comment(s): skin cancer General Exam Limitations: no limitations General appearance: alert, in no apparent distress Head exam: Present: atraumatic, normocephalic, normal inspection Eye exam: Present: normal appearance, PERRL Pupils: Present: normal accommodation ENT exam: Present: normal exam, normal oropharynx, mucous membranes moist Neck exam: Present: normal inspection, full ROM Respiratory exam: Present: normal lung sounds bilaterally Cardiovascular Exam: Present: regular rate, normal rhythm, normal heart sounds GI/Abdominal exam: Present: soft, normal bowel sounds Extremities exam: Present: normal inspection, full ROM Back exam: Present: normal inspection, full ROM Neurological exam: Present: alert, oriented X3, CN II-XII intact Psychiatric exam: Present: normal affect, normal mood Skin exam: Present: warm, dry Course Vital Signs 10/28/22 20:59 Temperature 98.1 F Pulse Rate 95 Respiratory 18 Rate Blood Pressure 127/79 O2 Sat by Pulse 95 Oximetry EKG Findings - EKG Comments: EKG Findings:: An EKG was obtained and was interpreted by myself showing a rate of 85, AK interval 133, QRS duration of 99 and QTC of 423. This EKG showed a normal sinus rhythm with no ST segment elevation or depression noted. Medical Decision Making - Medical Decision Making Was pt. sent in by a medical professional or institution (, PA, CUSTOMER SALES DISTRIBUTOR, urgent care, hospital, or care home...) When possible be specific @ -No Did you speak to anyone other than the patient for history (EMS, parent, family, police, friend...)? What history was obtained from this source @ -No Did you review nursing and triage notes (agree or disagree)? Why? @ -I reviewed and agree with nursing and triage notes Were old charts reviewed (outside hosp., previous admission, EMS record, old EKG, old radiological studies, urgent care reports/EKG's, care home records)? Report findings @ -No old charts were reviewed Differential Diagnosis (chest pain, altered mental status, abdominal pain women, abdominal pain men, vaginal bleeding, weakness, fever, dyspnea, syncope, headache, dizziness, GI bleed, back pain, seizure, CVA, palpatations, mental health)? @ -ACS, pneumothorax, pneumonia EKG interpreted by me (3pts min.). @ -As above X-rays interpreted by me (1pt min.). @ -Chest x-ray was obtained and was interpreted by myself showing no acute process. CT interpreted by me (1pt min.). @ -None done U/S interpreted by me (1pt. min.). @ -None done What testing was considered but not performed or refused? (CT, X-rays, U/S, labs)? Why? @ -None What meds were considered but not given or refused? Why? @ -None Did you discuss the management of the patient with other professionals (professionals i.e. , PA, CUSTOMER SALES DISTRIBUTOR, lab, RT, psych nurse, social work assistant, universal grinder set up operator, teacher, energy control officer, correctional casework specialist)? Give summary @ -Yes, admitting physician was contacted regarding placing the patient in observation. Was smoking cessation discussed for >3mins.? @ -No Was critical care preformed (if so, how long)? @ -No Were there social determinants of health that impacted care today? How? (Homelessness, low income, unemployed, alcoholism, drug addiction, transporta tion, low edu. Level, literacy, decrease access to med. care, prison, rehab)? @ -No Was there de-escalation of care discussed even if they declined (Discuss DNR or withdrawal of care, Hospice)? DNR status @ -No What co-morbidities impacted this encounter? (DM, HTN, Smoking, COPD, CAD, Cancer, CVA, ARF, Chemo, Hep., AIDS, mental health diagnosis, sleep apnea, morbid obesity)? @ -Hypertension, previous cardiac arrest with cardiac stenting Was patient admitted / discharged? Hospital course, mention meds given and route, prescriptions, significant lab abnormalities, going to OR and other pertinent info. @ -The patient was seen and evaluated emergency department. Physical exam, the patient was resting in bed without any acute distress. Vital signs admission were stable. Due to the patient's symptoms, laboratory workup was obtained as was a chest x-ray and EKG. All workup was negative and within normal limits. Due to the patient's cardiac history in the setting of continued left-sided chest pain, the patient will be placed in observation for cardiology to evaluate the patient. The patient was told of this plan and was agreeable. The patient was placed in observation in stable condition. Undiagnosed new problem with uncertain prognosis? @ -No Drug Therapy requiring intensive monitoring for toxicity (Heparin, Nitro, Insulin, Cardizem)? @ -No Were any procedures done? @ -No Diagnosis/symptom? @ -Chest pain, rule out ACS Acute, or Chronic, or Acute on Chronic? @ -Acute on chronic Uncomplicated (without systemic symptoms) or Complicated (systemic symptoms)? @ -Complicated Side effects of treatment? @ -No Exacerbation, Progression, or Severe Exacerbation? @ -No Poses a threat to life or bodily function? How? (Chest pain, [place], [place], pneumonia, PE, COPD, DKA, ARF, appy, cholecystitis, CVA, Diverticulitis, Homicidal, Suicida l, threat to staff... and all critical care pts) @ -Yes, chest pain can lead ACS which lead to permanent damage and possible . - Lab Data Result diagrams: 10/28/22 21:34 10/28/22 21:34 Lab Results 10/28/22 10/28/22 10/28/22 Range/Units 21:34 21:34 21:34 WBC 6.1 (3.8-10.6) k/uL RBC 4.62 (4.30-5.90) m/uL Hgb 16.7 (13.0-17.5) gm/dL Hct 48.4 (39.0-53.0) % MCV 104.8 H (80.0-100.0) fL MCH 36.1 H (25.0-35.0) pg MCHC 34.4 (31.0-37.0) g/dL RDW 13.6 (11.5-15.5) % Plt Count 157 (150-450) k/uL MPV 8.5 Neutrophils % 53 % Lymphocytes % 34 % Monocytes % 7 % Eosinophils % 3 % Basophils % 1 % Neutrophils # 3.2 (1.3-7.7) k/uL Lymphocytes # 2.1 (1.0-4.8) k/uL Monocytes # 0.4 (0-1.0) k/uL Eosinophils # 0.2 (0-0.7) k/uL Basophils # 0.0 (0-0.2) k/uL Macrocytosis Slight PT 10.7 (9.0-12.0) sec INR 1.0 (<1.2) APTT 23.5 (22.0-30.0) sec Sodium 136 L (137-145) mmol/L Potassium 3.5 (3.5-5.1) mmol/L Chloride 105 (98-107) mmol/L Carbon Dioxide 20 L (22-30) mmol/L Anion Gap 11 mmol/L BUN 15 (9-20) mg/dL Creatinine 0.80 (0.66-1.25) mg/dL Est GFR (CKD-EPI)AfAm >90 (>60 ml/min/1.73 sqM) Est GFR (CKD-EPI)NonAf >90 (>60 ml/min/1.73 sqM) Glucose 88 (74-99) mg/dL Calcium 9.0 (8.4-10.2) mg/dL Magnesium 1.7 (1.6-2.3) mg/dL Total Bilirubin 0.9 (0.2-1.3) mg/dL AST 89 H (17-59) U/L ALT 71 H (4-49) U/L Alkaline Phosphatase 78 (38-126) U/L Troponin I (0.000-0.034) ng/mL NT-Pro-B Natriuret Pep pg/mL Total Protein 6.8 (6.3-8.2) g/dL Albumin 3.4 L (3.5-5.0) g/dL 10/28/22 10/28/22 Range/Units 21:34 21:34 WBC (3.8-10.6) k/uL RBC (4.30-5.90) m/uL Hgb (13.0-17.5) gm/dL Hct (39.0-53.0) % MCV (80.0-100.0) fL MCH (25.0-35.0) pg MCHC (31.0-37.0) g/dL RDW (11.5-15.5) % Plt Count (150-450) k/uL MPV Neutrophils % % Lymphocytes % % Monocytes % % Eosinophils % % Basophils % % Neutrophils # (1.3-7.7) k/uL Lymphocytes # (1.0-4.8) k/uL Monocytes # (0-1.0) k/uL Eosinophils # (0-0.7) k/uL Basophils # (0-0.2) k/uL Macrocytosis PT (9.0-12.0) sec INR (<1.2) APTT (22.0-30.0) sec Sodium (137-145) mmol/L Potassium (3.5-5.1) mmol/L Chloride (98-107) mmol/L Carbon Dioxide (22-30) mmol/L Anion Gap mmol/L BUN (9-20) mg/dL Creatinine (0.66-1.25) mg/dL Est GFR (CKD-EPI)AfAm (>60 ml/min/1.73 sqM) Est GFR (CKD-EPI)NonAf (>60 ml/min/1.73 sqM) Glucose (74-99) mg/dL Calcium (8.4-10.2) mg/dL Magnesium (1.6-2.3) mg/dL Total Bilirubin (0.2-1.3) mg/dL AST (17-59) U/L ALT (4-49) U/L Alkaline Phosphatase (38-126) U/L Troponin I <0.012 (0.000-0.034) ng/mL NT-Pro-B Natriuret Pep 140 pg/mL Total Protein (6.3-8.2) g/dL Albumin (3.5-5.0) g/dL Disposition Clinical Impression: Chest pain Disposition: ADMITTED IP TO THIS [facility] Condition: Stable Instructions (If sedation given, give patient instructions): Chest Pain (ED) Is patient prescribed a controlled substance at d/c from ED?: No Referrals: Zaid Mallory MD [Primary Care Provider] - 1-2 days Time of Disposition: 22:00 Decision to Admit Reason: Admit from EC Decision Date: 10/28/22 Decision Time: 22:00
[2022-10-29] MEDS ORDERED: NITROGLYCERIN SL TABS 0.4 MG TAB SUBLINGUAL PRN ×2 (01:24→08:30)
--- NOTE | 2022-10-29 01:35 | P.HPIM ---
History of Present Illness H&P Date: 10/29/22 Chief Complaint: chest pain 52 year old male with history of DVT , Hypertension, patient coming in for evaluation of high blood pressure , chest pain off and on. he describes the chest pain as pressure squeezing like , central chest radiating to the upper extremities .denies illicit drugs , alcohol , or illlicit drugs she describes wakin up with severe pain , mainly in upper extremity, denies any fever, chills nausea or vomiting, patient alble normally to do yard work with no limitations. denies any recent travel , hospital stay . or illicit drugs review of systemis Pertinent positives as noted in HPI. All other systems were reviewed and are negative /O/E Constitutional: No acute distress, conversant, pleasant Eyes: Anicteric sclerae, moist conjunctiva, Pupils equal round reactive to light ENMT: NC/AT Oropharynx clear, no erythema, or exudates Neck: Supple, no masses, or JVD No carotid bruits No thyromegaly Lungs: Clear to auscultation Clear to percussion Normal respiratory effort, no accessory muscle use Cardiovascular: Heart regular in rate and rhythm, No murmurs, gallops, or rubs No peripheral edema Abdominal: Soft Nontender, no guarding, rebound or rigidity Abdomen moving with respiration Normoactive bowel sounds No hepatomegaly, No splenomegaly No palpable mass No abdominal wall hernia noted Skin: Normal temperature, tone, texture, turgor No induration No subcutaneous nodules No rash, lesions No ulcers Extremities: No digital cyanosis No clubbing Pedal pulses intact and symmetrical Radial pulses intact and symmetrical No calf tenderness Psychiatric: Alert and oriented to person, place and time Appropriate affect fair judgement Neuro Muscles Strength 5/5 in all 4 extremities Sensation to light touch grossly present throughout Cranial nerves II-XII grossly intact Lymphatics: no palpable cervical or supraclavicular lymph nodes Past Medical History Past Medical History: Chest Pain / Angina, Heart Failure, Deep Vein Thrombosis (DVT), GERD/Reflux, Hyperlipidemia, Myocardial Infarction ([place]), Rheumatoid Arthritis ([place]), Sleep Apnea/CPAP/BIPAP Additional Past Medical History / Comment(s): See Dr Gottlieb H&P, 10-01-13 Cardiac arrest positive mi, was coded / placed on vent for 2 days, kidney stones , essential tremor, hx migraines, chronic "sour stomach", no cpap used since wt loss Last Myocardial Infarction Date:: 2013 History of Any Multi-Drug Resistant Organisms: None Reported Past Surgical History: Heart Catheterization, Heart Catheterization With Stent Additional Past Surgical History / Comment(s): 2 cardiac stents, laser sx for kidney stone Past Anesthesia/Blood Transfusion Reactions: No Reported Reaction Date of Last Stent Placement:: 09/23/13 Past Psychological History: Anxiety, Bipolar, Depression Smoking Status: Former smoker Past Alcohol Use History: Daily Past Drug Use History: Marijuana - Past Family History Mother Family Medical History: Cancer Additional Family Medical History / Comment(s): skin cancer Medications and Allergies Home Medications Medication Instructions Recorded Confirmed Type Aspirin 81 mg PO DAILY #30 chew 10/01/13 10/28/22 Rx Spironolactone [Aldactone] 25 mg PO DAILY #30 tab 10/01/13 10/28/22 Rx DULoxetine HCL [Cymbalta] 60 mg PO BID 06/27/17 10/28/22 History Atorvastatin [Lipitor] 80 mg PO DAILY 08/21/18 10/28/22 History Nitroglycerin Sl Tabs [Nitrostat] 0.4 mg SUBLINGUAL Q5M PRN 10/28/22 10/28/22 History Sildenafil Citrate 50 mg PO DAILY PRN 10/28/22 10/28/22 History carvediloL [Coreg] 3.125 mg PO BID 10/28/22 10/28/22 History Allergies Allergy/AdvReac Type Severity Reaction Status Date / Time hydroxyzine HCl Allergy Unknown Verified 10/28/22 22:56 [From Vistaril] hydroxyzine pamoate Allergy Unknown Verified 10/28/22 22:56 [From Vistaril] meperidine HCl [From Demerol] Allergy Unknown Verified 10/28/22 22:56 Physical Exam Vitals: Vital Signs Temp Pulse Resp BP Pulse Ox 10/28/22 23:04 90 18 161/110 10/28/22 20:59 98.1 F 95 18 127/79 95 Intake and Output 10/28/22 10/28/22 10/29/22 14:59 22:59 06:59 Other: Weight 83.007 kg Results CBC & Chem 7: 10/28/22 21:34 10/28/22 21:34 Labs: Abnormal Lab Results - Last 24 Hours (Table) 10/28/22 10/28/22 Range/Units 21:34 21:34 MCV 104.8 H (80.0-100.0) fL MCH 36.1 H (25.0-35.0) pg Sodium 136 L (137-145) mmol/L Carbon Dioxide 20 L (22-30) mmol/L AST 89 H (17-59) U/L ALT 71 H (4-49) U/L Albumin 3.4 L (3.5-5.0) g/dL Assessment and Plan Assessment: 52 year old male with heart attack and arrest last year, coming in with chest pain severe radiating to the elbow and the Jaw associated high blood pressure kasia, denies any fever,c [place], ,no abd pain , no chest pain admitted to the primary surgical team with sound in conasult atypical chest pain , cardiology referral trend trops, avoid smoking, AsA statin hypertension
[2022-10-29] MEDS: DULoxetine HCL 60 MG CAPSULE.DR PO SCH ×3 (04:08→20:26)
[2022-10-29] MEDS ORDERED: ALPRAZolam 0.25 MG TAB PO PRN (08:30)
[2022-10-29] MEDS ORDERED: ALPRAZolam 0.5 MG TAB PO PRN (08:30)
[2022-10-29] MEDS: HEPARIN SODIUM,PORCINE/PF 5,000 UNIT/0.5 ML SYRINGE SQ SCH ×3 (09:04→20:27)
[2022-10-29] MEDS: VALSARTAN 80 MG TAB PO SCH ×2 (09:04→20:26)
[2022-10-29] MEDS: MORPHINE SULFATE 4 MG/ML SYRINGE IV PRN ×2 (09:04→20:26)
[2022-10-29] MEDS: carvediloL 3.125 MG TAB PO SCH ×2 (09:05→17:56)
[2022-10-29] MEDS: ASPIRIN 81 MG PO SCH (09:05)
[2022-10-29] MEDS: ATORVASTATIN 80 MG TAB PO SCH (09:05)
[2022-10-29] MEDS: SPIRONOLACTONE 25 MG TAB PO SCH (09:42)
--- NOTE | 2022-10-29 12:07 | P.CRDCN ---
History of Present Illness Consult date: 10/29/22 Consult reason: chest pain History of present illness: This is Uriel Pike NP, I'm dictating on behalf of Dr. Gottlieb's H&P and A&P The patient was interviewed and examined. HPI: Patient is a pleasant 52-year-old male who presented to the hospital with chest pain. Patient reports yesterday that he developed left-sided chest pain that was persistent throughout the day, with inclusive left arm, and jaw pain. Patient reports he was also diaphoretic during this episode. Patient has had a remote history of [place] with stenting, and came to the hospital for evaluation. In the emergency department the patient was found to have an EKG in normal sinus rhythm. Troponins have been negative. He has a pertinent past medical history that includes angina, heart failure, DVT, GERD, hyperlipidemia, [place], rheumatoid arthritis, and sleep apnea. Patient has a pertinent past surgical history that includes heart catheterization with stent placement. Patient was interviewed and examined while lying in the bed. This morning the patient continues to appreciate chest discomfort and pressure. Telemetry remains in normal sinus rhythm. ROS: [No fever, chills, or rigors] [no cough, phlegm, or expectoration] [no nausea, vomiting, or diarrhea] [no hematuria, dysuria] [no musculoskelatal complaints] [no strokes or seizures] [no skin lesions] EXAMINATION: GENERAL: Well-appearing, well-nourished and in no acute distress. NECK: Supple without JVD or thyromegaly. LUNGS: Breath sounds clear to auscultation bilaterally. Respiration equal and unlabored. No wheezes, rales or rhonchi. HEART: Regular rate and rhythm without murmurs, rubs or gallops. S1 and S2 heard. EXTREMITIES: Normal range of motion, no edema. No clubbing or cyanosis. Sarah pheral pulses intact and strong. REVIEW OF LABS, ECG & MEDICAL DATA: LABS: White count 6.1, hemoglobin 16.7, pulse 157, sodium 136, potassium 3.5, B1 15, creatinine 0.80, magnesium 1.7, troponin-less than 0.012, 0.016, 0.015 EKG: Normal sinus rhythm IMAGING: Chest x-ray dated 10/28/2022 demonstrates no acute pulmonary process. VITALS: Temp 97.6, pulse 82, respirations 16, blood pressure 153/73, O2 saturation 98% on room air IMPRESSION: 1. Chest pain 2. History of coronary artery stenting 3. Hypertension PLAN: Obtain echocardiogram. Start valsartan 80 mg twice a day for hypertension. Schedule for cardiac catheterization tomorrow. Further recommendations based on echocardiogram and cath reports. Thank you for the consult and allowing us to participate in the care of this patient. Past Medical History Past Medical History: Chest Pain / Angina, Heart Failure, Deep Vein Thrombosis (DVT), GERD/Reflux, Hyperlipidemia, Myocardial Infarction ([place]), Rheumatoid Arthritis ([place]), Sleep Apnea/CPAP/BIPAP Additional Past Medical History / Comment(s): See Dr Bull Chang&P, 10-01-13 Cardiac arrest positive mi, was coded / placed on vent for 2 days, kidney stones , essential tremor, hx migraines, chronic "sour stomach", no cpap used since wt loss Last Myocardial Infarction Date:: 2013 History of Any Multi-Drug Resistant Organisms: None Reported Past Surgical History: Heart Catheterization, Heart Catheterization With Stent Additional Past Surgical History / Comment(s): 2 cardiac stents, laser sx for kidney stone Past Anesthesia/Blood Transfusion Reactions: No Reported Reaction Date of Last Stent Placement:: 09/23/13 Past Psychological History: Anxiety, Bipolar, Depression Smoking Status: Former smoker Past Alcohol Use History: Daily Past Drug Use History: Marijuana - Past Family History Mother Family Medical History: Cancer Additional Family Medical History / Comment(s): skin cancer Medications and Allergies Home Medications Medication Instructions Recorded Confirmed Type Aspirin 81 mg PO DAILY #30 chew 10/01/13 10/28/22 Rx Spironolactone [Aldactone] 25 mg PO DAILY #30 tab 10/01/13 10/28/22 Rx DULoxetine HCL [Cymbalta] 60 mg PO BID 06/27/17 10/28/22 History Atorvastatin [Lipitor] 80 mg PO DAILY 08/21/18 10/28/22 History Nitroglycerin Sl Tabs [Nitrostat] 0.4 mg SUBLINGUAL Q5M PRN 10/28/22 10/28/22 History Sildenafil Citrate 50 mg PO DAILY PRN 10/28/22 10/28/22 History carvediloL [Coreg] 3.125 mg PO BID 10/28/22 10/28/22 History Allergies Allergy/AdvReac Type Severity Reaction Status Date / Time hydroxyzine HCl Allergy Unknown Verified 10/28/22 22:56 [From Vistaril] hydroxyzine pamoate Allergy Unknown Verified 10/28/22 22:56 [From Vistaril] meperidine HCl [From Demerol] Allergy Unknown Verified 10/28/22 22:56 Physical Exam Vitals: Vital Signs Temp Pulse Pulse Resp BP BP Pulse Ox 10/29/22 07:00 97.6 F 72 16 153/73 98 10/29/22 02:46 78 153/88 97 10/29/22 00:35 16 10/29/22 00:21 97.9 F 84 16 159/97 96 10/28/22 23:04 90 18 161/110 10/28/22 20:59 98.1 F 95 18 127/79 95 Intake and Output 10/28/22 10/29/22 10/29/22 22:59 06:59 14:59 Intake Total 0 Balance 0 Intake: Oral 0 Other: Voiding Method Toilet # Voids 2 Weight 83.007 kg 83.007 kg Results 10/28/22 21:34 10/28/22 21:34 Cardiac Enzymes 10/28/22 10/28/22 10/29/22 Range/Units 21:34 21:34 03:03 AST 89 H (17-59) U/L Troponin I <0.012 0.016 (0.000-0.034) ng/mL 10/29/22 Range/Units 06:05 AST (17-59) U/L Troponin I 0.015 (0.000-0.034) ng/mL Coagulation 10/28/22 Range/Units 21:34 PT 10.7 (9.0-12.0) sec APTT 23.5 (22.0-30.0) sec CBC 10/28/22 Range/Units 21:34 WBC 6.1 (3.8-10.6) k/uL RBC 4.62 (4.30-5.90) m/uL Hgb 16.7 (13.0-17.5) gm/dL Hct 48.4 (39.0-53.0) % Plt Count 157 (150-450) k/uL Comprehensive Metabolic Panel 10/28/22 Range/Units 21:34 Sodium 136 L (137-145) mmol/L Potassium 3.5 (3.5-5.1) mmol/L Chloride 105 (98-107) mmol/L Carbon Dioxide 20 L (22-30) mmol/L BUN 15 (9-20) mg/dL Creatinine 0.80 (0.66-1.25) mg/dL Glucose 88 (74-99) mg/dL Calcium 9.0 (8.4-10.2) mg/dL AST 89 H (17-59) U/L ALT 71 H (4-49) U/L Alkaline Phosphatase 78 (38-126) U/L Total Protein 6.8 (6.3-8.2) g/dL Albumin 3.4 L (3.5-5.0) g/dL Current Medications Generic Name Dose Route Start Last Admin Trade Name Freq PRN Reason Stop Dose Admin Alprazolam 0.25 mg 10/29/22 08:30 Alprazolam 0.25 Mg Tab PO Q6HR PRN Mild Anxiety Alprazolam 0.5 mg 10/29/22 08:30 Alprazolam 0.5 Mg Tab PO Q6HR PRN Moderate Anxiety Aspirin 81 mg 10/29/22 09:00 10/29/22 09:05 Aspirin 81 Mg PO 81 mg DAILY MAKAYLA Administration Aspirin 325 mg 10/30/22 06:00 Aspirin 325 Mg Tab PO 10/30/22 06:01 ONCE ONE Atorvastatin Calcium 80 mg 10/29/22 09:00 10/29/22 09:05 Atorvastatin 80 Mg Tab PO 80 mg DAILY MAKAYLA Administration Atorvastatin Calcium 80 mg 10/30/22 06:00 Atorvastatin 80 Mg Tab PO 10/30/22 06:01 ONCE ONE Carvedilol 3.125 mg 10/29/22 07:30 10/29/22 09:05 Carvedilol 3.125 Mg Tab PO 3.125 mg BID-W/MEALS MAKAYLA Administration Duloxetine HCl 60 mg 10/29/22 01:30 10/29/22 09:05 Duloxetine Hcl 60 Mg Capsule.Dr PO 60 mg BID MAKAYLA Administration Heparin Sodium (Porcine) 5,000 unit 10/29/22 08:00 10/29/22 09:04 Heparin Sodium,Porcine/Pf 5,000 Unit/0.5 Ml Syringe SQ 5,000 unit Q8HR MAKAYLA Administration Heparin Sodium (Porcine) 10, 1,001 mls @ 999 mls/hr 06/26/23 07:00 000 unit/ Sodium Chloride IRRIGATION 10/30/22 23:00 ONCE PRN INTRA-OP Heparin Sodium (Porcine) 2,500 250.5 mls @ 250 mls/hr 10/30/22 07:00 unit/ Sodium Chloride IRRIGATION 10/30/22 23:00 ONCE PRN INTRA-OP Morphine Sulfate 4 mg 10/28/22 23:18 10/29/22 09:04 Morphine Sulfate 4 Mg/Ml Syringe IV 4 mg Q4HR PRN Administration Severe Pain (Scale 7 to 10) Naloxone HCl 0.2 mg 10/28/22 23:18 Naloxone 0.4 Mg/Ml 1 Ml Vial IV Q2M PRN Opioid Reversal Nitroglycerin 0.4 mg 10/29/22 08:30 Nitroglycerin Sl Tabs 0.4 Mg Tab SUBLINGUAL Q5M PRN Chest Pain Spironolactone 25 mg 10/29/22 09:15 10/29/22 09:42 Spironolactone 25 Mg Tab PO 25 mg DAILY MAKAYLA Administration Valsartan 80 mg 10/29/22 09:00 10/29/22 09:04 Valsartan 80 Mg Tab PO 80 mg BID MAKAYLA Administration Intake and Output 10/28/22 10/29/22 10/29/22 22:59 06:59 14:59 Intake Total 0 Balance 0 Intake: Oral 0 Other: Voiding Method Toilet # Voids 2 Weight 83.007 kg 83.007 kg 10/28/22 21:34 10/28/22 21:34
[2022-10-29] MEDS ORDERED: PROCHLORPERAZINE INJ 10 MG/2 ML VIAL IVP STA (14:07)
[2022-10-29] MEDS ORDERED: KETOROLAC 15 MG/ML 1 ML VIAL IVP STA (14:07)
[2022-10-29] MEDS ORDERED: diphenhydrAMINE 50 MG/ML 1 ML VIAL IVP STA (14:07)
--- NOTE | 2022-10-29 16:38 | P.PN ---
Subjective Progress Note Date: 10/29/22 Hospital course: Patient is a very pleasant 52-year-old male with a past medical history of CAD with stenting status post previous CT and cardiac arrest, hypertension, hyperlipidemia, DVT, rheumatoid arthritis, and obstructive sleep apnea. Patient presented to the hospital on 10/28/22 with a chief complaint of chest pain radiating into left elbow and jaw. He underwent full evaluation in the emergency department. Labs completed and reviewed. CBC, coags, and BMP showing no significant abnormalities. Liver enzymes slightly elevated with AST of 89 and ALT of 71. Initial troponin was negative at less than 0.012. ProBNP was 140. EKG was completed showing normal sinus rhythm at 85 bpm with no significant T-wave or ST abnormalities upon personal review and interpretation. Chest x-ray completed, lungs appear clear and radiology report reviewed stating negative for acute cardiopulmonary process. Patient was admitted under our services with consultation to cardiology. Troponins were trended overnight resulting at less than 0.012, 0.016, and 0.015. Physical exam: Patient seen and fully evaluated at bedside this morning. Patient reports continued chest pain/discomfort and significant headache. Patient reports headache since last night since receiving an initial nitro. Order placed to be placed for migraine cocktail RN notified of need for administration of subl ingual nitro. Cardiology following and discussed plan of care and planning to take patient for cardiac cath tomorrow morning. Repeat EKG completed and reviewed. Vital signs reviewed and stable. General: Nontoxic, no distress and appears stated age. Derm: Skin warm and dry, normal coloration for ethnicity. Head: Atraumatic, normocephalic and symmetric. Eyes: EOMs intact, no lid lag, and anicteric sclera Mouth: no lip lesions, mucus membranes moist Cardiovascular: regular rate and rhythm with normal S1S2, no murmur, positive posterior tibial pulses bilaterally, and cap refill < 2 seconds. Lungs: Respirations even, regular, and unlabored on room air. Lungs CTA bilaterally, no rhonchi, no rales, no wheezing, and no accessory muscle usage. Abdominal: soft, nontender to palpation, no guarding, no appreciable organomegaly Ext: ROM intact. No gross muscle atrophy, no edema, no contractures Neuro: Speech clear, face symmetrical and CN II-XII grossly intact with no noted focal neuro deficits Psych: Alert and oriented to person, place, time, and situation. Appropriate and pleasant affect. Assessment and Plan of Care: Chest pain with History of CAD with stenting status post previous CT and cardiac arrest Hypertension Hyperlipidemia -Labs completed and reviewed. CBC, coags, and BMP showing no significant abnormalities. Liver enzymes slightly elevated with AST of 89 and ALT of 71. Initial troponin was negative at less than 0.012. ProBNP was 140. -EKG was completed showing normal sinus rhythm at 85 bpm with no significant T- wave or ST abnormalities upon personal review and interpretation. -Chest x-ray completed, lungs appear clear and radiology report reviewed stating negative for acute cardiopulmonary process. -Cardiology following, discussed plan of care with cardiac and P and they report plans to take patient for cardiac cath tomorrow morning. -Order placed for inpatient admission to [facility] unit with telemetry. -Troponins were trended overnight resulting at less than 0.012, 0.016, and 0.015. -Continue telemetry monitoring -Continue aspirin 81 mg daily, atorvastatin 80 mg daily, carvedilol 3.125 mg twice daily with meals, and valsartan 80 mg twice daily. Data analysis review: Vital signs reviewed and stable. Blood pressure 153/73, heart rate 72, respiratory rate 16, SpO2 98% on room air with temperature of 97.6F. Labs reviewed. Troponins were trended overnight resulting at less than 0.012, 0.016, and 0.015. Imaging reviewed. -Repeat EKG completed this morning showing normal sinus rhythm at 77 bpm with T- wave inversion in inferior lead 3 otherwise no significant T-wave or ST abnormality showing no sign of acute ischemia upon personal review and interpretation. CODE STATUS: Full code DVT prophylaxis: Heparin Discussed with: Patient, cardiology [employer], and RN Anticipated discharge date: Clinical course to determine Anticipated discharge place: Home Patient was seen independently by Nurse Pracitioner. This document was prepared using [employer] dictation software. Please allow for errors in hydraulic engineer, while rare they do occur. I reviewed the documentation as provided by the MELLO above, who is the original author of this note. I agree with the documented assessment and plan, with the following changes: none Objective - Vital Signs Vital signs: Vital Signs Temp 97.6 F 10/29/22 07:00 Pulse 72 10/29/22 07:00 Resp 16 10/29/22 07:00 BP 153/73 10/29/22 07:00 Pulse Ox 98 10/29/22 07:00 FiO2 Intake & Output 10/28/22 10/29/22 10/29/22 18:59 06:59 18:59 Intake Total 0 Balance 0 Weight 83.007 kg Intake: Oral 0 Other: Voiding Method Toilet # Voids 2 - Labs CBC & Chem 7: 10/28/22 21:34 10/28/22 21:34 Labs: Abnormal Lab Results - Last 24 Hours (Table) 10/28/22 10/28/22 Range/Units 21:34 21:34 MCV 104.8 H (80.0-100.0) fL MCH 36.1 H (25.0-35.0) pg Sodium 136 L (137-145) mmol/L Carbon Dioxide 20 L (22-30) mmol/L AST 89 H (17-59) U/L ALT 71 H (4-49) U/L Albumin 3.4 L (3.5-5.0) g/dL
[2022-10-30] MEDS ORDERED: ATORVASTATIN 80 MG TAB PO ONE (06:00)
[2022-10-30] MEDS ORDERED: ASPIRIN 325 MG TAB PO ONE (06:00)
[2022-10-30] MEDS ORDERED: HEPARIN SODIUM,PORCINE 2,500 UNIT in SODIUM CHLORIDE 0.9% 250 ML IRRIGATION PRN (07:00)
[2022-10-30] MEDS ORDERED: HEPARIN SODIUM,PORCINE 10,000 UNIT in SODIUM CHLORIDE 0.9% 1,000 ML IRRIGATION PRN (07:00)
[2022-10-30] MEDS: VALSARTAN 80 MG TAB PO SCH ×2 (07:49→19:41)
[2022-10-30] MEDS: SPIRONOLACTONE 25 MG TAB PO SCH (07:49)
[2022-10-30] MEDS: HEPARIN SODIUM,PORCINE/PF 5,000 UNIT/0.5 ML SYRINGE SQ SCH ×2 (07:49→15:09)
[2022-10-30] MEDS: ASPIRIN 81 MG PO SCH (07:49)
[2022-10-30] MEDS: ATORVASTATIN 80 MG TAB PO SCH (07:49)
[2022-10-30] MEDS: DULoxetine HCL 60 MG CAPSULE.DR PO SCH ×2 (07:49→19:41)
[2022-10-30] MEDS: carvediloL 3.125 MG TAB PO SCH ×2 (07:49→18:53)
--- NOTE | 2022-10-30 10:14 | P.PN ---
Subjective Progress Note Date: 10/30/22 HPI: Patient is a pleasant 52-year-old male who presented to the hospital with chest pain. Patient reports yesterday that he developed left-sided chest pain that was persistent throughout the day, with inclusive left arm, and jaw pain. Patient reports he was also diaphoretic during this episode. Patient has had a remote history of IL with stenting, and came to the hospital for evaluation. In the emergency department the patient was found to have an EKG in normal sinus rhythm. Troponins have been negative. He has a pertinent past medical history that includes angina, heart failure, DVT, GERD, hyperlipidemia, IL, rheumatoid arthritis, and sleep apnea. Patient has a pertinent past surgical history that includes heart catheterization with stent placement. Patient was interviewed and examined while lying in the bed. This morning the patient continues to appreciate chest discomfort and pressure. Telemetry remains in normal sinus rhythm. Echocardiogram has been obtained and report is pending. REVIEW OF LABS, ECG & MEDICAL DATA: LABS: White count 6.1, hemoglobin 16.7, pulse 157, sodium 136, potassium 3.5, B1 15, creatinine 0.80, magnesium 1.7, troponin-less than 0.012, 0.016, 0.015 EKG: Normal sinus rhythm IMAGING: Chest x-ray dated 10/28/2022 demonstrates no acute pulmonary process. VITALS: Temp 97.6, pulse 82, respirations 16, blood pressure 153/73, O2 saturation 98% on room air 10/30 Patient is scheduled for cardiac catheterization with Dr. Banuelos today. He denies having any chest pain or shortness of breath. Patient is resting comfortably. Blood pressure 117/72, heart rate is in the 80s. Telemetry is a sinus rhythm. EXAMINATION: GENERAL: Well-appearing, well-nourished and in no acute distress. NECK: Supple without JVD or thyromegaly. LUNGS: Breath sounds clear to auscultation bilaterally. Respiration equal and unlabored. No wheezes, rales or rhonchi. HEART: Regular rate and rhythm without murmurs, rubs or gallops. S1 and S2 heard. EXTREMITIES: Normal range of motion, no edema. No clubbing or cyanosis. Peripheral pulses intact and strong. IMPRESSION: 1. Chest pain 2. History of coronary artery stenting 3. Hypertension PLAN: Continue patient on valsartan 80 mg twice a day for hypertension. Cardiac catheterization today with Dr. Banuelos Further recommendations based on echocardiogram and cath reports. Nurse practitioner note has been reviewed, I agree with the documented findings and plan of care. Patient was seen and examined. Objective - Vital Signs Vital signs: Vital Signs Temp 98.1 F 10/30/22 06:59 Pulse 81 10/30/22 06:59 Resp 17 10/30/22 06:59 BP 117/72 10/30/22 06:59 Pulse Ox 96 10/30/22 06:59 FiO2 Intake & Output 10/29/22 10/30/22 10/30/22 18:59 06:59 18:59 Output Total 0 Balance 0 Output: Urine 0 Other: Voiding Method Toilet # Voids 2 - Labs CBC & Chem 7: 10/28/22 21:34 10/28/22 21:34
--- NOTE | 2022-10-30 10:34 | CA ---
Transthoracic Echo Report Name: Roberto Burden Age: 52 Gender: M : 1970 Exam Date: 10/30/2022 07:33 Exam Location: [facility] Ht (in): 71 Wt (lb): 183 Ordering Physician: Uriel Pike Attending/Referring Phys: Retaining Room Cutter Sanjuana Amador RDCS Procedure CPT: Indications: Chest Pain Cardiac Hx: stents, HTN, hx of [place] Technical Quality: Good Contrast 1: Total Dose (mL): Contrast 2: Total Dose (mL): MEASUREMENTS (Male / Female) Normal Values 2D ECHO LV Diastolic Diameter PLAX 4.9 cm 4.2 - 5.9 / 3.9 - 5.3 cm LV Systolic Diameter PLAX 3.3 cm IVS Diastolic Thickness 1.0 cm 0.6 - 1.0 / 0.6 - 0.9 cm LVPW Diastolic Thickness 1.0 cm 0.6 - 1.0 / 0.6 - 0.9 cm LV Relative Wall Thickness 0.4 RV Internal Dim ED PLAX 2.9 cm LA Systolic Diameter LX 3.1 cm 3.0 - 4.0 / 2.7 - 3.8 cm LV Diastolic Volume MOD 4C 84.3 cm??? LV Systolic Volume MOD 4C 46.4 cm??? LV Ejection Fraction MOD 4C 44.9 % LV Cardiac Index MOD 4C 1496.5 cm???/min???m??? LV Diastolic Length 4C 6.7 cm LV Systolic Length 4C 5.7 cm LV Diastolic Volume MOD 2C 105.2 cm??? LV Systolic Volume MOD 2C 54.2 cm??? LV Ejection Fraction MOD 2C 48.5 % LV Cardiac Index MOD 2C 2019.7 cm???/min???m??? LV Diastolic Length 2C 7.5 cm LV Systolic Length 2C 6.3 cm LA Volume 45.3 cm??? 18 - 58 / 22 - 52 cm??? M-MODE Aortic Root Diameter MM 3.1 cm MV E Point Septal Separation 0.6 cm AV Cusp Separation MM 2.1 cm DOPPLER AV Peak Velocity 92.2 cm/s AV Peak Gradient 3.4 mmHg MV Area PHT 2.5 cm??? Mitral E Point Velocity 58.3 cm/s Mitral A Point Velocity 88.0 cm/s Mitral E to A Ratio 0.7 MV Deceleration Time 302.2 ms MV E' Velocity 3.4 cm/s Mitral E to MV E' Ratio 17.2 TR Peak Velocity 173.3 cm/s TR Peak Gradient 12.0 mmHg Right Ventricular Systolic Press 17.0 mmHg FINDINGS Left Ventricle Left ventricular ejection fraction is estimated at 50 %. Left ventricular cavity size normal. Left ventricular wall thickness normal. There is hypokinesia of the inferobasal and septal wall Right Ventricle Normal right ventricular size and function. Right ventricular systolic pressure within normal limits. Right Atrium Right atrium not well visualized. Left Atrium Normal left atrial size. Mitral Valve Structurally normal mitral valve. No mitral stenosis, regurgitation or prolapse. Aortic Valve Trileaflet aortic valve. No aortic valve stenosis or regurgitation. Tricuspid Valve Structurally normal tricuspid valve. Mild tricuspid regurgitation. Pulmonic Valve Structurally normal pulmonic valve. No pulmonic regurgitation. Pericardium Normal pericardium. No pericardial effusion. Aorta Normal size aortic root and proximal ascending aorta. CONCLUSIONS Left ventricle systolic function is fairly well-preserved with ejection fraction of 50% with inferobasal and inferoseptal hypokinesia. No significant abnormality on the Doppler exam. No pericardial effusion Previewed by: Dr. Judith Antoine MD (Electronically Signed) Final Date: 30 October 2022 10:33
[2022-10-30] MEDS ORDERED: KETOROLAC 15 MG/ML 1 ML VIAL IVP STA (12:40)
[2022-10-30] MEDS ORDERED: diphenhydrAMINE 50 MG/ML 1 ML VIAL IVP STA (12:41)
[2022-10-30] MEDS ORDERED: PROCHLORPERAZINE INJ 10 MG/2 ML VIAL IVP STA (12:41)
--- NOTE | 2022-10-30 15:09 | P.PN ---
Subjective Progress Note Date: 10/30/22 Hospital course: Patient is a very pleasant 52-year-old male with a past medical history of CAD with stenting status post previous [facility] and cardiac arrest, hypertension, hyperlipidemia, DVT, rheumatoid arthritis, and obstructive sleep apnea. Patient presented to the hospital on 10/28/22 with a chief complaint of chest pain radiating into left elbow and jaw. He underwent full evaluation in the emergency department. Labs completed and reviewed. CBC, coags, and BMP showing no significant abnormalities. Liver enzymes slightly elevated with AST of 89 and ALT of 71. Initial troponin was negative at less than 0.012. ProBNP was 140. EKG was completed showing normal sinus rhythm at 85 bpm with no significant T-wave or ST abnormalities upon personal review and interpretation. Chest x-ray completed, lungs appear clear and radiology report reviewed stating negative for acute cardiopulmonary process. Patient was admitted under our services with consultation to cardiology. Troponins were trended overnight resulting at less than 0.012, 0.016, and 0.015. Physical exam: Patient seen and fully evaluated at bedside this morning. Patient reports continued chest pain/discomfort and recurrent headache. He is scheduled to undergo cardiac catheterization later today. Patient reports full resolution of chest pain and headache yesterday after migraine cocktail was administered. Orders to be placed again for Toradol 15 mg IVP 1 dose, Benadryl 50 mg IVP 1 dose, and Compazine 10 mg IVP 1 dose. Patient denies having any dizziness, lightheadedness, nausea, diaphoresis, shortness of breath, or experiencing any numbness/tingling/weakness in his extremities. Vital signs reviewed and stable. General: Nontoxic, no distress and appears stated age. Derm: Skin warm and dry, normal coloration for ethnicity. Head: Atraumatic, normocephalic and symmetric. Eyes: EOMs intact, no lid lag, and anicteric sclera Mouth: no lip lesions, mucus membranes moist Cardiovascular: regular rate and rhythm with normal S1S2, no murmur, positive posterior tibial pulses bilaterally, and cap refill < 2 seconds. Lungs: Respirations even, regular, and unlabored on room air. Lungs CTA bilaterally, no rhonchi, no rales, no wheezing, and no accessory muscle usage. Abdominal: soft, nontender to palpation, no guarding, no appreciable organomegaly Ext: ROM intact. No gross muscle atrophy, no edema, no contractures Neuro: Speech clear, face symmetrical and CN II-XII grossly intact with no noted focal neuro deficits Psych: Alert and oriented to person, place, time, and situation. Appropriate and pleasant affect. Assessment and Plan of Care: Chest pain with History of CAD with stenting status post previous [place] and cardiac arrest Hypertension Hyperlipidemia -Initial EKG showing normal sinus rhythm 85 bpm with no significant T-wave or ST abnormalities upon personal review and interpretation. -Repeat EKG completed this morning showing normal sinus rhythm at 77 bpm with T- wave inversion in inferior lead 3 otherwise no significant T-wave or ST abnormality showing no sign of acute ischemia upon personal review and interpretation. -Troponins were trended resulting at 0.012, 0.016, and 0.015. -Chest x-ray completed, lungs appear clear and radiology report reviewed stating negative for acute cardiopulmonary process. -Cardiology following, discussed plan of care with rehabilitation coordinator and plan is for patient to undergo cardiac catheterization later today. -Continue telemetry monitoring -Continue aspirin 81 mg daily, atorvastatin 80 mg daily, carvedilol 3.125 mg twice daily with meals, and valsartan 80 mg twice daily. Headache -Order placed for migraine cocktail consisting of Toradol 15 mg IVP 1 dose, Benadryl 50 mg IVP 1 dose, and Compazine 10 mg IVP 1 dose Data analysis review: Vital signs reviewed and stable. Blood pressure 117/72, heart rate 81, respiratory rate 17, SpO2 96% on room air and temperature 98.1F. Labs reviewed. Troponins were trended overnight resulting at less than 0.012, 0.016, and 0.015. Imaging reviewed. -Initial EKG showing normal sinus rhythm 85 bpm with no significant T-wave or ST abnormalities upon personal review and interpretation. -Repeat EKG completed this morning showing normal sinus rhythm at 77 bpm with T- wave inversion in inferior lead 3 otherwise no significant T-wave or ST abnormality showing no sign of acute ischemia upon personal review and interpretation. CODE STATUS: Full code DVT prophylaxis: Heparin Discussed with: Patient, rehabilitation coordinator and RN Anticipated discharge date: Clinical course to determine Anticipated discharge place: Home Patient was seen independently by Nurse Pracitioner. This document was prepared using [employer] dictation software. Please allow for errors in junior administrative assistant, while rare they do occur. I reviewed the documentation as provided by the MELLO above, who is the original author of this note. I agree with the documented assessment and plan, with the following changes: none Objective - Vital Signs Vital signs: Vital Signs Temp 98.1 F 10/30/22 06:59 Pulse 81 10/30/22 06:59 Resp 17 10/30/22 06:59 BP 117/72 10/30/22 06:59 Pulse Ox 96 10/30/22 06:59 FiO2 Intake & Output 10/29/22 10/30/22 10/30/22 18:59 06:59 18:59 Output Total 0 Balance 0 Output: Urine 0 Other: Voiding Method Toilet # Voids 2 - Labs CBC & Chem 7: 10/28/22 21:34 10/28/22 21:34
[2022-10-30] MEDS ORDERED: VERAPAMIL 2.5 MG/ML 2 ML AMP ONE (17:51)
[2022-10-30] MEDS ORDERED: HEPARIN SODIUM 1,000 UN/ML (10ML VL) ONE (17:51)
[2022-10-30] MEDS ORDERED: SODIUM CHLORIDE 0.9% 1,000 ML IV ONE (18:08)
[2022-10-30] MEDS ORDERED: MIDAZOLAM 2 MG/2 ML VIAL IVP ONE ×3 (18:08→18:30)
[2022-10-30] MEDS ORDERED: LIDOCAINE 1% INJ 10MG/ML (5 ML VIAL-PF) SQ ONE (18:20)
[2022-10-30] MEDS ORDERED: fentaNYL (PF) 50 MCG/ML 2 ML AMP ONE (18:20)
[2022-10-30] MEDS ORDERED: VERAPAMIL SYRINGE (5 MG/10 ML) INTRAARTER ONE (18:21)
[2022-10-30] MEDS: fentaNYL (PF) 50 MCG/ML 2 ML AMP IVP ONE ×2 (18:22→18:26)
[2022-10-30] MEDS ORDERED: HEPARIN SODIUM 1,000 UN/ML (10ML VL) IVP ONE (18:30)
[2022-10-30] MEDS ORDERED: NITROGLYCERIN 1000MCG/10ML SYRINGE INTRAARTER ONE (18:32)
[2022-10-30] MEDS ORDERED: IOPAMIDOL-370 100ML BTL INJ ONE (18:33)
[2022-10-30] MEDS ORDERED: RX INFO: IV CONTRAST WAS GIVEN 1 EACH MISC MISCELLANE PRN (18:36)
--- NOTE | 2022-10-30 18:40 | P.PCN ---
Date of Procedure: 10/30/22 Operative Findings: CARDIAC CATHETERIZATION PERFORMING PHYSICIAN: José Banuelos MD, RPVI PROCEDURE PERFORMED: 1. Selective right and left coronary angiogram 2. Left heart catheterization 3. Ultrasound-guided access of the right radial artery INDICATION: Unstable angina COMPLICATION: None APPROACH: Right radial artery LEVEL OF SEDATION: Moderate with a sedation length of 14 minutes PROCEDURE DESCRIPTION: After obtaining an informed consent, the patient was brought to cardiac laboratory sample carrier. Local anesthesia was performed using lidocaine subcutaneously. The right radial artery was cannulated using Seldinger technique, the guidewire passed easily, following that we advanced a 5-Egyptian sheath dilator assembly, the wire and dilator were removed and sheath was flushed. Following that, 2 mg of verapamil along with 5000 unit heparin were given. Selective right and left coronary angiogram using a 6-Egyptian JR4 and JL 3.5 catheters. Following that we did left heart catheterization using 6-Egyptian pigtail catheter. The procedure was completed there was no complication. SELECTIVE CORONARY ANGIOGRAM: The right coronary artery: Large-caliber vessel appears to be angiographically normal. Distally bifurcates into PDA and PLV branches and both appeared to be angiographically normal Left main: Is angiographically normal. Bifurcates into an LCx and LAD The left circumflex: Large caliber vessel and nondominant vessel. Its angiographically normal. Gives rises into 3 OM branches and appears to be angiographically normal The left anterior descending artery: Large-caliber vessel. The proximal LAD has mild disease only. The mid LAD stented and the stent is patent. The LAD distally appears to be angiographically normal. LAD gives rises into a diagonal branch which appears to be angiographically normal HEMODYNAMICS: LVEDP was 6 mmHg was no significant gradient across aortic valve CONCLUSION: 1. Patent stent in the mid LAD 2. Normal left-sided filling pressure POSTPROCEDURE MANAGEMENT: Medical treatment and follow-up with the patient
[2022-10-30] MEDS ORDERED: SODIUM CHLORIDE 0.9% 1,000 ML IV SCH (18:45)
[2022-10-31] MEDS: HEPARIN SODIUM,PORCINE/PF 5,000 UNIT/0.5 ML SYRINGE SQ SCH ×2 (02:33→09:06)
[2022-10-31] MEDS: carvediloL 3.125 MG TAB PO SCH (06:21)
[2022-10-31 06:23] VITALS: BP 136/82; PULSE 72; RESP 18; TEMP 97.6
[2022-10-31 08:44] LABS: BUN/Creat Ratio 17.11 Ratio (12.00-20.00); Blood Urea Nitrogen 15.4 mg/dL (9.0-27.0); Chloride 106 mmol/L (96-109); Glucose 78 mg/dL (70-110); Magnesium 1.9 mg/dL (1.5-2.4); Potassium 4.4 mmol/L (3.5-5.5); Sodium 141 mmol/L (135-145)
[2022-10-31 08:45] LABS: ALT 81 U/L (10-49); AST 91 U/L (14-35); Albumin 3.3 d/dL (3.8-4.9); Albumin/Globulin Ratio 1.18 Ratio (1.60-3.17); Alkaline Phosphatase 71 U/L (41-126); Carbon Dioxide 20.3 mmol/L (21.6-31.8); Globulin 2.8 d/dL (1.6-3.3); Total Bilirubin 0.6 mg/dL (0.3-1.2); Total Protein 6.1 d/dL (6.2-8.2)
[2022-10-31 08:48] LABS: HCT 48.5 % (39.6-50.0); HGB 16.3 d/dL (12.0-15.0); MCH 35.7 pg (27.0-32.0); MCHC 33.6 d/dL (32.0-37.0); MCV 106.4 FL (80.0-97.0); Mean Platelet Volume 11.6 FL (9.5-12.2); NRBC Per 100 WBC 0 X 10*3/uL (0.00-0.01); Platelet Count 147 X 10*3/uL (140-440); RBC 4.56 X 10*6/uL (4.40-5.60); RDW 13.6 % (11.5-14.5); WBC 4.89 X 10*3/uL (4.50-10.00)
[2022-10-31] MEDS: ASPIRIN 81 MG PO SCH (09:02)
[2022-10-31] MEDS: VALSARTAN 80 MG TAB PO SCH (09:02)
[2022-10-31] MEDS: DULoxetine HCL 60 MG CAPSULE.DR PO SCH (09:02)
[2022-10-31] MEDS: ATORVASTATIN 80 MG TAB PO SCH (09:02)
[2022-10-31] MEDS: SPIRONOLACTONE 25 MG TAB PO SCH (09:02)
--- NOTE | 2022-10-31 09:11 | P.DS ---
Providers Date of admission: 10/29/22 16:32 Expected date of discharge: 10/31/22 Attending physician: Roddy Armando MD Consults: 10/28/22 23:18 Consult Physician Routine Consulting Provider: [facility] Consult Reason/Comments: CP r/o ACS Do you want consulting provider notified?: Yes, Notify in am Primary care physician: Zaid Mallory [facility] Course: ] Discharge Diagnosis: Chest pain with unstable angina History of CAD with stenting status post previous ND and cardiac arrest Hypertension Hyperlipidemia Headache, resolved Hospital Course: Patient is a very pleasant 52-year-old male with a past medical history of CAD with stenting status post previous ND and cardiac arrest, hypertension, hyperlipidemia, DVT, rheumatoid arthritis, and obstructive sleep apnea. Patient presented to the hospital on 10/28/22 with a chief complaint of chest pain radiating into left elbow and jaw. He underwent full evaluation in the emergency department. Labs completed and reviewed. CBC, coags, and BMP showing no significant abnormalities. Liver enzymes slightly elevated with AST of 89 and ALT of 71. Initial troponin was negative at less than 0.012. ProBNP was 140. EKG was completed showing normal sinus rhythm at 85 bpm with no significant T-wave or ST abnormalities upon personal review and interpretation. Chest x-ray completed, lungs appear clear and radiology report reviewed stating negative for acute cardiopulmonary process. Patient was admitted under our s ervices with consultation to cardiology. Troponins were trended overnight resulting at less than 0.012, 0.016, and 0.015. Repeat EKG completed this morning showing normal sinus rhythm at 77 bpm with T-wave inversion in inferior lead 3 otherwise no significant T-wave or ST abnormality showing no sign of acute ischemia upon personal review and interpretation. Patient was taken for cardiac catheterization yesterday evening which revealed patent stent to LAD with normal left sided. Cardiology recommending patient in our office. Patient currently reports that he had an isolated episode of slight chest pain overnight but currently denies having any complaints or needs. Patient denies having headache, lightheadedness, dizziness, chest pain, palpitations, shortness of breath or exertional dyspnea. Patient states he is ready to go home. Cardiology regarding patient from cardiac perspective. Medically patient is stable at this time discharged home. In addition to current cardiac medication regimen with aspirin, Aldactone, atorvastatin, carvedilol, patient has been started on valsartan 80 mg twice daily. Prescription sent at this time. Vital signs stable with blood pressure 136/82, heart rate 72, respiratory rate 18, SpO2 98% on room air, and temp 97.6F. Patient to follow up outpatient with PCP in 1-2 days and cardiology in 1 week. Physical exam: Vital signs reviewed and stable. General: Nontoxic, no distress and appears stated age. Derm: Skin warm and dry, normal coloration for ethnicity. Head: Atraumatic, normocephalic and symmetric. Eyes: EOMs intact, no lid lag, and anicteric sclera Mouth: no lip lesions, mucus membranes moist Cardiovascular: regular rate and rhythm with normal S1S2, no murmur, positive posterior tibial pulses bilaterally, and cap refill < 2 seconds. Lungs: Respirations even, regular, and unlabored on room air. Lungs CTA bilaterally, no rhonchi, no rales, no wheezing, and no accessory muscle usage. Abdominal: soft, nontender to palpation, no guarding, no appreciable organomegaly Ext: ROM intact. No gross muscle atrophy, no edema, no contractures. Cardiac cath site right wrist dressing intact with no signs of bleeding, hematoma, or bruising. Movement and sensation intact. Neuro: Speech clear, face symmetrical and CN II-XII grossly intact with no noted focal neuro deficits Psych: Alert and oriented to person, place, time, and situation. Appropriate and pleasant affect. A total of 33 minutes of time were spent preparing this complex discharge summary. Pt was discharged on 10/31/22 at 9:09 AM. Patient was seen independently by Nurse Practitioner. This document was prepared using [employer] Dragon dictation software. Please allow for errors in technical administrative assistant while rare they do occur. Jamel Freitas NP rendered care for this patient independently, reviewed the findings and plan as documented in the note above. I did not physically speak with or examine the patient on this date. Patient Condition at Discharge: Stable Plan - Discharge Summary New Discharge Prescriptions: New Valsartan [Diovan] 80 mg PO BID 30 Days #60 tab Continue Aspirin 81 mg PO DAILY #30 chew Spironolactone [Aldactone] 25 mg PO DAILY #30 tab DULoxetine HCL [Cymbalta] 60 mg PO BID Atorvastatin [Lipitor] 80 mg PO DAILY Sildenafil Citrate 50 mg PO DAILY PRN PRN Reason: E.D. Nitroglycerin Sl Tabs [Nitrostat] 0.4 mg SUBLINGUAL Q5M PRN PRN Reason: Chest Pain carvediloL [Coreg] 3.125 mg PO BID Discharge Medication List Aspirin 81 mg PO DAILY #30 chew 10/01/13 [Rx] Spironolactone [Aldactone] 25 mg PO DAILY #30 tab 10/01/13 [Rx] DULoxetine HCL [Cymbalta] 60 mg PO BID 06/27/17 [History] Atorvastatin [Lipitor] 80 mg PO DAILY 08/21/18 [History] Nitroglycerin Sl Tabs [Nitrostat] 0.4 mg SUBLINGUAL Q5M PRN 10/28/22 [History] Sildenafil Citrate 50 mg PO DAILY PRN 10/28/22 [History] carvediloL [Coreg] 3.125 mg PO BID 10/28/22 [History] Valsartan [Diovan] 80 mg PO BID 30 Days #60 tab 10/31/22 [Rx] Follow up Appointment(s)/Referral(s): José Banuelos MD [STAFF PHYSICIAN] - 11/08/22 2:45 pm (appointment at the main office) Zaid Mallory MD [Primary Care Provider] - 1-2 days Patient Instructions/Handouts: Chest Pain (ED), Angiography (DC) Activity/Diet/Wound Care/Special Instructions: Activity: As tolerated. Take breaks as needed. It is important to keep a heart healthy lifestyle. This can improve your long- term health and decrease your risk for heart attacks. Managing your blood cholesterol, blood pressure, weight, and stress. The importance of regular exercise. Diet: Heart healthy and carb consistent diet. Avoid salts, or foods with hidden salts such as canned or boxed foods and frozen dinners. Extra salt makes your heart work harder and traps the fluid in your body for longer. Heart Healty Diets also include eating more plants in your diet. Lots of fruits and vegetables, nuts, beans, legumes, fish, whole grains, plant-based oils. Avoid fried foods and animal fats and processed meats Special Instructions: Aspirin as anti-platelet therapy - Aspirin lessens the chance of heart attack and stroke. It helps prevent blood clots from forming, allowing the blood to flow more easily. Each day, you will take one 81 mg (non-enteric coated) tablet daily. You will be taking aspirin as a lifelong medication. Do not stop unless instructed by your doctor. Statins -A statin medication lowers cholesterol levels in the blood. This helps slow the progression of heart disease. - Please take your statin medication as prescribed by your doctor. -You may be taking one of the following statins: Lipitor (atorvastatin) Beta Blockers: -Beta vinicius (metoprolol) Is a medication that protects your heart from stress and can prevent future heart attacks. It can slow your heart rate. Do not stop taking these medicines without talking to your doctor. For mild discomfort, you may take plain Tylenol (acetaminophen). Follow dose directions, but do not take more than 4,000 mg of acetaminophen in 24 hours. You will need to follow up with your PCP in 3 days and cardiology in 1 week. Thank you for allowing us to participate in your care, it was truly a pleasure having you for our patient!!! Discharge Disposition: HOME SELF-CARE
--- NOTE | 2022-10-31 09:13 | P.PN ---
Subjective Progress Note Date: 10/31/22 HPI: Patient is a pleasant 52-year-old male who presented to the hospital with chest pain. Patient reports yesterday that he developed left-sided chest pain that was persistent throughout the day, with inclusive left arm, and jaw pain. Patient reports he was also diaphoretic during this episode. Patient has had a remote history of OR with stenting, and came to the hospital for evaluation. In the emergency department the patient was found to have an EKG in normal sinus rhythm. Troponins have been negative. He has a pertinent past medical history that includes angina, heart failure, DVT, GERD, hyperlipidemia, OR, rheumatoid arthritis, and sleep apnea. Patient has a pertinent past surgical history that includes heart catheterization with stent placement. Patient was interviewed and examined while lying in the bed. This morning the patient continues to appreciate chest discomfort and pressure. Telemetry remains in normal sinus rhythm. Echocardiogram has been obtained and report is pending. REVIEW OF LABS, ECG & MEDICAL DATA: LABS: White count 6.1, hemoglobin 16.7, pulse 157, sodium 136, potassium 3.5, B1 15, creatinine 0.80, magnesium 1.7, troponin-less than 0.012, 0.016, 0.015 EKG: Normal sinus rhythm IMAGING: Chest x-ray dated 10/28/2022 demonstrates no acute pulmonary process. VITALS: Temp 97.6, pulse 82, respirations 16, blood pressure 153/73, O2 saturation 98% on room air 10/30 Patient is scheduled for cardiac catheterization with Dr. Banuelos today. He denies having any chest pain or shortness of breath. Patient is resting comfortably. Blood pressure 117/72, heart rate is in the 80s. Telemetry is a sinus rhythm. 10/31 Yesterday, patient underwent cardiac catheterization with Dr. Banuelos which revealed patent stent in the LAD and normal left-sided filling pressure. Medical treatment and follow-up. The patient denies any new concerns today. He did have an episode of chest pain 2 out of 10 but none overnight. No shortness of breath. No palpitations. Blood pressure 136/82, heart rate in the 70s to 90s. Repeat blood work reveals potassium 4.4, BUN 15 and creatinine 0.9. EXAMINATION: GENERAL: Well-appearing, well-nourished and in no acute distress. NECK: Supple without JVD or thyromegaly. LUNGS: Breath sounds clear to auscultation bilaterally. Respiration equal and unlabored. No wheezes, rales or rhonchi. HEART: Regular rate and rhythm without murmurs, rubs or gallops. S1 and S2 heard. EXTREMITIES: Normal range of motion, no edema. No clubbing or cyanosis. Peripheral pulses intact and strong. IMPRESSION: 1. Chest pain 2. History of coronary artery stenting 3. Hypertension PLAN: Continue patient on valsartan 80 mg twice a day for hypertension. Patient is cleared from cardiology for discharge home. Patient may follow with Dr. Banuelos in 1-2 weeks. Nurse practitioner note has been reviewed, I agree with the documented findings and plan of care. Patient was seen and examined. Objective - Vital Signs Vital signs: Vital Signs Temp 97.6 F 10/31/22 06:22 Pulse 72 10/31/22 06:22 Resp 18 10/31/22 06:22 BP 136/82 10/31/22 06:22 Pulse Ox 98 10/31/22 06:22 FiO2 Intake & Output 10/30/22 10/31/22 10/31/22 18:59 06:59 18:59 Intake Total 280 Balance 280 Intake: IV 100 Oral 180 Other: Voiding Method Toilet Toilet # Voids 2 2 - Labs CBC & Chem 7: 10/31/22 05:13 10/31/22 05:13
== END 2022-10-31 10:00 | disposition home or self-care (01) | DRG 287 ==
LOC: EC 20:55 → 6NMEDSUR 23:18 → OBSVTOIN 10-29 16:32
PROVIDERS: ADMIT Internal Medicine; ATTEND Internal Medicine
PROC: B2111ZZ Fluoroscopy of Multiple Coronary Arteries using Low Osmolar Contrast (ICD-10-PCS; 2022-10-30)
PROC: 4A023N7 Measurement of Cardiac Sampling and Pressure, Left Heart, Percutaneous Approach (ICD-10-PCS; principal; 2022-10-30 09:00)
DX: I25.110 Atherosclerotic heart disease of native coronary artery with unstable angina pectoris (principal); E78.5 Hyperlipidemia, unspecified; F31.9 Bipolar disorder, unspecified; F41.9 Anxiety disorder, unspecified; I50.9 Heart failure, unspecified; I11.0 Hypertensive heart disease with heart failure; M06.9 Rheumatoid arthritis, unspecified; I25.2 Old myocardial infarction; Z79.82 Long term (current) use of aspirin; Z79.899 Other long term (current) drug therapy; Z80.8 Family history of malignant neoplasm of other organs or systems; Z86.718 Personal history of other venous thrombosis and embolism; Z86.74 Personal history of sudden cardiac arrest; Z87.442 Personal history of urinary calculi; Z95.5 Presence of coronary angioplasty implant and graft
CPT/HCPCS: 36415; 71046; 80053; 83735; 83880; 84484; 85025; 85027; 85610; 85730; 93005; 93306; 93458; 96374; 99285